=== PATIENT | female | born 1965 | race Caucasian/White ===

== ENCOUNTER 2019-01-24 08:42 | Inpatient (IN) | payer OTHER ==
--- NOTE | 2019-01-24 09:19 | PDOC ---
History of Present Illness - General Chief Complaint: Pain, Acute Stated Complaint: NECK PAIN Time Seen by Provider: 01/24/19 09:04 Past History - Past Medical History Allergies/Adverse Reactions: Allergies Allergy/AdvReac Type Severity Reaction Status Date / Time No Known Allergies Allergy Verified 11/12/15 12:25 Home Medications: Ambulatory Orders Diazepam [Valium] 5 mg PO BID #14 tablet 05/16/12 Lisinopril [Prinivil] 10 mg PO DAILY 01/24/19 COPD: No HTN: Yes - Immunization History Immunization Up to Date: No - Suicide/Smoking/Psychosocial Hx Smoking Status: No Smoking History: Never smoked Have you smoked in the past 12 months: No Number of Cigarettes Smoked Daily: 0 Information on smoking cessation initiated: No Hx Alcohol Use: No Drug/Substance Use Hx: No Substance Use Type: None *Physical Exam - Vital Signs Last Vital Signs Temp Pulse Resp BP Pulse Ox 97.7 F 79 16 130/84 99 01/24/19 08:48 01/24/19 08:48 01/24/19 08:48 01/24/19 08:48 01/24/19 08:48 *DC/Admit/Observation/Transfer - Discharge Dispostion Condition at time of disposition: Stable - Referrals Referrals: Anton Bull MD [Primary Care Provider] - - Patient Instructions - Post Discharge Activity
[2019-01-24] MEDS ORDERED: SODIUM CHLORIDE 0.9% 1000 ML INFUS.BAG IV ONE (09:23)
[2019-01-24 10:19] LABS: BASO % 0.7 % (0-2.0); EOS % 2.4 % (0-4.5); HEMATOCRIT 39.1 % (32.4-45.2); HEMOGLOBIN 13.4 GM/dL (10.7-15.3); LYMPH % 29.5 % (8-40); MCH 28.9 pg (25.7-33.7); MCHC 34.4 g/dl (32.0-36.0); MEAN CELL VOLUME 84.2 fl (80-96); MONO % 6.8 % (3.8-10.2); NEUT % 60.6 % (42.8-82.8); PLATELET COUNT 220 K/MM3 (134-434); RBC 4.64 M/mm3 (3.60-5.2); RDW 13.1 % (11.6-15.6); WHITE BLOOD COUNT 5.2 K/mm3 (4.0-10.0)
[2019-01-24 10:55] LABS: ALBUMIN 4.4 g/dl (3.4-5.0); BILIRUBIN,TOTAL 0.7 mg/dL (0.2-1); CALCIUM 9.6 mg/dL (8.5-10.1); CREATININE 0.8 mg/dL (0.55-1.3)
--- NOTE | 2019-01-24 11:37 | PDOC ---
Documentation entered by Karen Cardona SCRIBE, acting as scribe for Agustin Roe MD. Agustin Roe MD: This documentation has been prepared by the Dulce copeland Brenda, SCRIBE, under my direction and personally reviewed by me in its entirety. I confirm that the documentation accurately reflects all work, treatment, procedures, and medical decision making performed by me. History of Present Illness - General Chief Complaint: Pain, Acute Stated Complaint: NECK PAIN Time Seen by Provider: 01/24/19 09:04 History Source: Patient Exam Limitations: No Limitations - History of Present Illness Initial Comments: 01/24/19 10:11 The patient is a 53 year old female, with a significant PMH of HTN who presents to the emergency department with severe headaches, sent by PCP for admittance. As per patient, she has been suffering with severe intermittent headaches for over a year, with multiple medical evaluations ,to no avail. The patient reports she was diagnosed with a metastatic neck cancer on Monday (01/22), and was sent in by her PCP today for admittance and consult by a neurosurgeon and oncologist. The patient denies any current pain. chest pain, shortness of breath and dizziness. Denies any gastrointestinal symptoms. Denies any urinary symptoms. Allergies: NKA Past surgical history: Not reported Social history: Denies history of tobacco use, alcohol use or illicit drug. PCP: Dr. Bull Neurologist: Dr. Be Past History - Past Medical History Allergies/Adverse Reactions: Allergies Allergy/AdvReac Type Severity Reaction Status Date / Time No Known Allergies Allergy Verified 11/12/15 12:25 Home Medications: Ambulatory Orders Diazepam [Valium] 5 mg PO BID #14 tablet 05/16/12 Lisinopril [Prinivil] 10 mg PO DAILY 01/24/19 COPD: No HTN: Yes - Immunization History Immunization Up to Date: No - Suicide/Smoking/Psychosocial Hx Smoking Status: No Smoking History: Never smoked Have you smoked in the past 12 months: No Number of Cigarettes Smoked Daily: 0 Information on smoking cessation initiated: No Hx Alcohol Use: No Drug/Substance Use Hx: No Substance Use Type: None Review of Systems - Review of Systems Able to Perform ROS?: Yes Comments:: 01/24/19 10:12 A complete review of 10 out of 10 review of systems is taken and is negative apart from what is previously mentioned below and in the HPI. *Physical Exam - Vital Signs Last Vital Signs Temp Pulse Resp BP Pulse Ox 97.7 F 79 16 130/84 99 01/24/19 08:48 01/24/19 08:48 01/24/19 08:48 01/24/19 08:48 01/24/19 08:48 - Physical Exam Comments: 01/24/19 10:12 Vitals: Triage Vital signs reviewed General Appearance: no acute distress, well nourished well developed, Head: Atraumatic, normocephalic Eyes: Pupils equal reactive round, extraocular movement intact Chest Wall: Nontender Cardiac: Regular rate and rhythm, no murmurs, no rubs, no gallops, Lungs: Clear to auscultation bilateral, good air movement bilaterally, Skin: Warm and dry, no rashes or lesions, no petechiae Neuro: AOX3; Cranial Nerves 2-12 grossly intact, Strength intact to all extremities, Sensation intact to all extremities Psych: normal mood, normal affect ED Treatment Course - LABORATORY CBC & Chemistry Diagram: 01/24/19 09:49 01/24/19 09:53 - ADDITIONAL ORDERS Additional order review: Laboratory Results 01/24/19 09:53 Sodium 139 Potassium 4.0 Chloride 105 Carbon Dioxide 29 Anion Gap 5 L BUN 13.0 Creatinine 0.8 Est GFR (CKD-EPI)AfAm 98.24 Est GFR (CKD-EPI)NonAf 84.76 Random Glucose 143 H Calcium 9.6 Total Bilirubin 0.7 AST 15 ALT 18 Alkaline Phosphatase 115 Total Protein 8.0 Albumin 4.4 01/24/19 09:49 RBC 4.64 MCV 84.2 MCHC 34.4 RDW 13.1 MPV 8.0 Neutrophils % 60.6 Lymphocytes % 29.5 Monocytes % 6.8 Eosinophils % 2.4 Basophils % 0.7 - RADIOLOGY Radiology Studies Ordered: Category Date Time Status ABDOMEN & PELVIS CT WITH CONTR [CT] Stat CT Scan 01/24/19 10:[address] WITH CONTRAST [CT] Stat CT Scan 01/24/19 10:23 Taken - Medications Given in the ED: ED Medications Discontinued Medications Generic Name Dose Route Start Last Admin Trade Name Freq PRN Reason Stop Dose Admin Sodium Chloride 1,000 ml 01/24/19 09:23 01/24/19 09:53 Normal Saline - IV 01/24/19 09:24 1,000 ml ONCE ONE Administration Medical Decision Making - Medical Decision Making 01/24/19 11:37 Metastatic cervical disc disease sent to ED for further management. Radiation oncology, oncology, neurosurgery has been consult. A CT of her chest abdomen pelvis has been ordered to search for primary cancer We'll admit to medicine for further management *DC/Admit/Observation/Transfer Diagnosis at time of Disposition: Metastatic cancer to spine - Discharge Dispostion Condition at time of disposition: Stable Decision to Admit order: Yes Decision to Admit order Date/Time: Decision to Admit Order Category Date Time Status Decision to Admit to Hospital Routine Admission 01/24/19 11:15 Ordered - Referrals - Patient Instructions - Post Discharge Activity
[2019-01-24 12:15] LABS: PH,URINE 8.5 (5.0-8.0); URINE APPEARANCE TURBID; URINE BILIRUBIN NEGATIVE (NEGATIVE); URINE COLOR YELLOW; URINE GLUCOSE (UA) NEGATIVE (NEGATIVE); URINE KETONE NEGATIVE (NEGATIVE); URINE LEUK ESTERASE NEGATIVE (NEGATIVE); URINE NITRITE NEGATIVE (NEGATIVE); URINE PROTEIN NEGATIVE (NEGATIVE); URINE UROBILINOGEN 0.2 mg/dL (0.2-1.0)
[2019-01-24] MEDS: ACETAMINOPHEN 1000 MG/100 ML VIAL (NON FORMULARY) IVPB ONE (14:00)
[2019-01-24] MEDS ORDERED: ACETAMINOPHEN INJECTION 100 ML IVPB ONE (14:03)
--- NOTE | 2019-01-24 14:29 | CONSULT ---
Consultation: CONSULT REQUEST: Heme/Onc HISTORY OF PRESENT ILLNESS: Patient is a 53 yo F with a PMHx of HTN, was sent to the ED by her PCP because of an C-spine finding of metastatic disease on the base of the skull and C- spine. Patient says she has been suffering with intermittent headaches and neck pain for a few years. She had 2 Brain MRIs in 2016, and 1 brain MRI W/O contrast on 12/2017 with no suspicion of malignancies. She also complains of lower back pain, and numbness/tingling in both b/l feet. Patient denies SOB, chest pain, nausea, vomiting, blood in stool, urinary changes, weight changes, night sweats, fevers, chills, diarrhea, edema. CT Chest/AP WITH contrast in the ED revealed multiple ground glass opacities and lung nodules representing metastatic dz. Background: [facility] [place] Family hx: brother with brain/neck cancer (unknown). Social hx: denies tobacco, occasional drinking, . Occupation: house keeper, [employer] Surgical hx: tubal ligation Colonoscopy: last one in the last 5 years. normal per patient Mammogram: Last in 2017, normal per patient Pap: 1 year ago, normal per patient REVIEW OF SYSTEMS: CONSTITUTIONAL: Absent: fever, chills, diaphoresis, generalized weakness, malaise, loss of appetite, weight change HEENT: Absent: rhinorrhea, nasal congestion, throat pain, throat swelling, difficulty swallowing, mouth swelling, ear pain, eye pain, visual changes CARDIOVASCULAR: Absent: chest pain, syncope, palpitations, irregular heart rate, lightheadedness , peripheral edema RESPIRATORY: Absent: cough, shortness of breath, dyspnea with exertion, orthopnea, wheezing, stridor, hemoptysis GASTROINTESTINAL: Absent: abdominal pain, abdominal distension, nausea, vomiting, diarrhea, constipation, melena, hematochezia GENITOURINARY: Absent: dysuria, frequency, urgency, hesitancy, hematuria, flank pain, genital pain MUSCULOSKELETAL: back pain, neck pain Absent: myalgia, arthralgia, joint swelling, SKIN: Absent: rash, itching, pallor HEMATOLOGIC/IMMUNOLOGIC: Absent: easy bleeding, easy bruising, lymphadenopathy, frequent infections NEUROLOGIC: headache, numbness, tingling of feet Absent: dizziness, unsteady gait, seizure, mental status changes, bladder or bowel incontinence PHYSICAL EXAMINATION Vital Signs - 24 hr 07/25/19 08:48 Temperature 97.7 F Pulse Rate 79 Respiratory 16 Rate Blood Pressure 130/84 O2 Sat by Pulse 99 Oximetry (%) GENERAL: Awake, alert, and fully oriented, in no acute distress. HEAD: Normal with no signs of trauma. EYES: Pupils equal, round and reactive to light, extraocular movements intact, sclera anicteric EARS, NOSE, THROAT: oropharynx clear without exudates. Moist mucous membranes. NECK: supple without lymphadenopathy, JVD, or masses. LUNGS: Breath sounds equal, clear to auscultation bilaterally. No wheezes, and no crackles. HEART: Regular rate and rhythm, normal S1 and S2 without murmur, rub or gallop. ABDOMEN: Soft, nontender, not distended, normoactive bowel sounds, no guarding, no rebound, no masses. No hepatomegaly or splenomegaly. LOWER EXTREMITIES: 2+ pulses, No calf tenderness. No peripheral edema. BREAST: no palpable masses, no nipple discharge Laboratory Results - last 24 hr ASSESSMENT/PLAN: #Metastatic disease Base of Skull/Cervical spine #Lung Nodules RLL/DIONTE likely Metastatic dz -Patient will need lung biopsy -Thyroid Sonogram -Rad Onc, neuro, Neurosx on board -Pulm on board Dispo: We will continue to follow the patient. Thank you for this consultative opportunity. Visit type - Emergency Visit Emergency Visit: Yes ED Registration Date: 01/24/19 Care time: The patient presented to the Emergency Department on the above date and was hospitalized for further evaluation of their emergent condition. - New Patient This patient is new to me today: Yes Date on this admission: 01/24/19 - Critical Care Critical Care patient: No ATTENDING PHYSICIAN STATEMENT I saw and evaluated the patient. I reviewed the resident's note and discussed the case with the resident. I agree with the resident's findings and plan as documented. SUBJECTIVE: OBJECTIVE: ASSESSMENT AND PLAN:
--- NOTE | 2019-01-24 14:36 | EKG ---
Test Reason : Blood Pressure : / mmHG Vent. Rate : 081 BPM Atrial Rate : 081 BPM P-R Int : 134 ms QRS Dur : 086 ms QT Int : 352 ms P-R-T Axes : 039 032 063 degrees QTc Int : 408 ms NORMAL SINUS RHYTHM NORMAL ECG WHEN COMPARED WITH ECG OF 04-JUN-2009 14:59, NO SIGNIFICANT CHANGE WAS FOUND Confirmed by FAISAL GRAHAM MD ([id number]) on 01/24/2019 2:35:56 PM Referred By: Confirmed By:FAISAL GRAHAM MD
--- NOTE | 2019-01-24 15:21 | HP ---
Admitting History and Physical - Primary Care Physician PCP: Aleks Paul - Admission Chief Complaint: headaches & Neck pain History of Present Illness: 53 year old female with unilateral headaches for the past year who has significant PMH of HTN & depression who was sent to ER by PCP after it was discovered that she has what appears to be multi-level "metastastic" lesions in the C-spine that start at C-1 (see report). She'd c/o unilateral headaches of varying severity for about 1 year ascribed to be migrainous, but in recent months, she describes neck pains upon turning head left and right, up and down. She may have experienced numbness on the fingers of the LUE; but has no problems walking, or performing all other activities. She has been working ( doing housekeeping work) up until several days ago when she was contacted by her PCP. She does not smoke (nor does ) but she does come in contact with bleach and various cleaning solutions at work. There has been no foreign travel. Has has not had any major injuries of any kind. She denies visual changes; weakness of arm; leg, etc. History Source: Patient Limitations to Obtaining History: No Limitations - Past Medical History [employer]: Yes: Migraine, Other (depression) Cardiovascular: Yes: HTN Musculoskeletal: Yes: Other (knee pains) - Past Surgical History Past Surgical History: Yes: Tubal Ligation - Smoking History Smoking history: Never smoked Have you smoked in the past 12 months: No Aproximately how many cigarettes per day: 0 - Alcohol/Substance Use Hx Alcohol Use: No History of Substance Use: reports: None - Social History Usual Living Arrangement: Yes: With Spouse ADL: Independent Occupation: does house-keeping History of Recent Travel: No Home Medications - Allergies Allergies/Adverse Reactions: Allergies Allergy/AdvReac Type Severity Reaction Status Date / Time No Known Allergies Allergy Verified 11/12/15 12:25 - Home Medications Home Medications: Ambulatory Orders Diazepam [Valium] 5 mg PO BID #14 tablet 05/16/12 Lisinopril [Prinivil] 10 mg PO DAILY 01/24/19 Family Disease History - Family Disease History Family History: Unremarkable Review of Systems - Review of Systems Constitutional: reports: No Symptoms Eyes: reports: No Symptoms HENT: reports: No Symptoms Neck: reports: Other (some pain on ROM) Cardiovascular: reports: No Symptoms Respiratory: reports: No Symptoms Gastrointestinal: reports: No Symptoms Genitourinary: reports: No Symptoms Breasts: reports: No Symptoms Reported Musculoskeletal: reports: Joint Pain (chronic knee pains) Integumentary: reports: No Symptoms Neurological: reports: Headache (see HPI) Endocrine: reports: No Symptoms Hematology/Lymphatic: reports: No Symptoms Psychiatric: reports: Depression (stable on SSRI) Physical Examination Vital Signs: Vital Signs Temperature 97.7 F 01/24/19 08:48 Pulse Rate 79 01/24/19 08:48 Respiratory Rate 16 01/24/19 08:48 Blood Pressure 130/84 01/24/19 08:48 O2 Sat by Pulse Oximetry (%) 99 01/24/19 08:48 Findings/Remarks: skin--no appreciable lesions where exposed head--NC eyes--midline; EOMI oral--no droop neck--ROM limited; no palpable lesions appreciated lungs--grossly clear heart--RR Breasts--(done by PCP) abd--benign ext--no atrophy; no soft tissue tenderness; pedal pulses felt neuro--alert; coherent speech is fluent; cogn intact; no gross motor/sens deficits Labs: CBC, BMP 01/24/19 09:49 01/24/19 09:53 Imaging - Results Cat Scan: Report Reviewed MRI: Report Reviewed EKG: Report Reviewed Problem List - Problems (1) Neoplasm of cervical vertebra Assessment/Plan: discovered by MRI; showing lesions suggestive of metastatic disease involving multiple vertebra. Origin as of yet unknown. No evidence of FX or misalignment: PLAN: will likely need surg intervention to stabilize the C-spine and perhaps Rt ; await NS & Onc evals Code(s): D49.2 - NEOPLASM OF UNSP BEHAVIOR OF BONE, SOFT TISSUE, AND SKIN (2) Headache Assessment/Plan: longstanding; unilateral mostly which (she stated) were not quelled much by use of anti-migraine agents Code(s): R51 - HEADACHE Qualifiers: Headache type: unspecified Headache chronicity pattern: unspecified pattern Intractability: not intractable Qualified Code(s): R51 - Headache (3) Abnormal chest CT Assessment/Plan: which indicates the presence of scattered nodules mainly on the upper most parts of the lungs. Metastasis is suggested. Code(s): R93.89 - ABNORMAL FINDINGS ON DX IMAGING OF OTH BODY STRUCTURES (4) Thyroid lesion Assessment/Plan: noted incidentally on MRI; cystic. Not palpable. Code(s): E07.89 - OTHER SPECIFIED DISORDERS OF THYROID (5) Hypertension Assessment/Plan: on lisinopril Code(s): I10 - ESSENTIAL (PRIMARY) HYPERTENSION Qualifiers: Hypertension type: essential hypertension Qualified Code(s): I10 - Essential (primary) hypertension (6) Depression Assessment/Plan: longstanding; would avoid use of SSRI given the possibility of facilitating bleeding in or around involved areas of spine. Code(s): F32.9 - MAJOR DEPRESSIVE DISORDER, SINGLE EPISODE, UNSPECIFIED Qualifiers: Depression Type: unspecified Qualified Code(s): F32.9 - Major depressive disorder, single episode, unspecified Assessment/Plan 53 YO with newly discovered suspicious C-spine lesions (placing her at risk of cord compression) as well as multiple lung nodules which are also of suspicious nature ~~~~~~~~~~~~~~ Dr Paul
[2019-01-24] MEDS ORDERED: ALPRAZolam 0.25 MG TABLET PO PRN (16:11)
--- NOTE | 2019-01-24 16:25 | PN ---
Progress Note (short form) - Note Progress Note: PULMONARY CONSULTATION DICTATED 01/24/19 IMP BILATERAL PULMONARY NODULES R/O MALIGNANT IN VIEW OF C-SPINE FINDINGS ? METS VS BRONCHOAVEOLAR CA NECK PAIN HTN CYSTIC THYROID MASS HEADACHES PLAN WILL ARRANGE FOR CT GUIDED BX LUNG NODULE TO OBTAIN TISSUE DIAGNOSIS THYROID ULTRASOUND DR SMALL Problem List - Problems (1) Abnormal chest CT Code(s): R93.89 - ABNORMAL FINDINGS ON DX IMAGING OF OTH BODY STRUCTURES (2) Depression Code(s): F32.9 - MAJOR DEPRESSIVE DISORDER, SINGLE EPISODE, UNSPECIFIED Qualifiers: Depression Type: unspecified Qualified Code(s): F32.9 - Major depressive disorder, single episode, unspecified (3) Hypertension Code(s): I10 - ESSENTIAL (PRIMARY) HYPERTENSION Qualifiers: Hypertension type: essential hypertension Qualified Code(s): I10 - Essential (primary) hypertension (4) Neoplasm of cervical vertebra Code(s): D49.2 - NEOPLASM OF UNSP BEHAVIOR OF BONE, SOFT TISSUE, AND SKIN (5) Thyroid lesion Code(s): E07.89 - OTHER SPECIFIED DISORDERS OF THYROID (6) Headache Code(s): R51 - HEADACHE Qualifiers: Headache type: unspecified Headache chronicity pattern: unspecified pattern Intractability: not intractable Qualified Code(s): R51 - Headache
--- NOTE | 2019-01-24 16:56 | PN ---
Teaching Attending Note Name of Resident: Livier Sanchez ATTENDING PHYSICIAN STATEMENT I saw and evaluated the patient. I reviewed the resident's note and discussed the case with the resident. I agree with the resident's findings and plan as documented. SUBJECTIVE: Patient seen and examined 53 year old female presents with several months of neck pain and pain radiating down left neck and shoulder . MRI with metastatic disease in C spine from C1- C5 with disc bulge at C5-6. CT of chest with ground glass opacities and nodularity in multiple sites. thyroid cyst Non smoker, non drinker, No industrial exposures or intoxicants Family history --brother - neck mass-ca ? type; paternal uncle stomach ca; paternal uncle with gastric PMH- hypertension Surgical history -- tubal ligation Meds- lisinopril Allergies- none Last Vital Signs Temp Pulse Resp BP Pulse Ox 97.7 F 79 16 130/84 99 01/24/19 08:48 01/24/19 08:48 01/24/19 08:48 01/24/19 08:48 01/24/19 08:48 PE HEENT: RENNY, EOM Intact Oropharynx: No thrush, No mucositis Neck: some discomfort on lateral movement Nodes: Without adenopathy, nothyromegaly Breasts: Without masses Cor: RSR, No murmurs, No gallops Lungs: Clear to P&A Abd: Soft, Normal bowel sounds, No organomegaly Ext:No significant edema Skin: No rashes, Integument intact Current Medications Generic Name Dose Route Start Last Admin Trade Name Freq PRN Reason Stop Dose Admin Acetaminophen 650 mg 01/24/19 16:13 Tylenol Oral Solution - PO Q6H PRN HEADACHE Alprazolam 0.25 mg 01/24/19 16:11 Xanax - PO Q8H PRN ANXIETY Lisinopril 5 mg 01/25/19 10:00 Prinivil PO DAILY MARKY Impression: Metastatic disease C-spine--C1-C5 CT of chest - multiple ground glass opacities and nodularity; thyroid nodule Will need biopsy of lung ( radha alekim) Thyroid Sonogram 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
--- NOTE | 2019-01-24 17:33 | CONS ---
DATE OF CONSULTATION: 01/24/2019 This is a 53-year-old female who enters with neck pain. Recent MRI of the cervical spine revealed what is felt to be metastatic disease involving the C1 through C4 vertebrae, as well as diskogenic disease as well in the cervical spine. The patient has been complaining of neck pain radiating anteriorly with headache, some radicular component down the left side, into the left shoulder area. There was some numbness of the fingers. The patient is with 3 children. She is of [place] descent. She is a nonsmoker, nondrinker. Works in housekeeping. Has had some exposure to bleaches. There is no second-hand smoke. The patient had a family history with a brother who had perhaps a mass on the neck, which was a cancer. There is a paternal uncle with stomach cancer and a paternal uncle with pancreatic cancer. PAST MEDICAL HISTORY: The patient has a history of hypertension. She has no history of [place], hypercholesterolemia, hepatitis, stroke, gallbladder disease. There is a distant history of thyroid disease. There is no history of kidney disease. No history of gout or TB. SURGICAL HISTORY: Includes that of a tubal ligation. GENERAL HEALTH: Mammogram in 2018, nonrevealing. Colonoscopy within the past 5 years. Pap reportedly unremarkable within the past year. REVIEW OF SYSTEMS: Headache as described, radiating up from the neck. No diplopia. No epistaxis. No dysphagia. No chest pain. Pain on moving the head laterally left to right. Radiating pain down the lateral side of the neck and into the left upper shoulder area. Some numbness intermittently of the toes. No chest pain, shortness of breath, difficulty breathing. No breast masses or discharge. No palpitations. No reflux. No cough. No sputum. Some dysphagia with food getting stuck at the back of the throat. No GI symptoms of nausea, vomiting, diarrhea, or constipation. No melena. No dysuria, hematuria, pyuria. Menarche at age 14. Menopause 6-7 years ago. Normal periods. No significant back pain. Neck pain as described. MEDICATIONS: Include lisinopril, Xanax, Tylenol. ALLERGIES: No known allergies. CURRENT PHYSICAL EXAMINATION: Vital Signs: BP 130/84, pulse 79, respiratory rate 16, afebrile. HEENT: RENNY. EOM intact. Neck: No cervical, supraclavicular, or axillary nodes. Lungs: Clear to P&A without rales or rhonchi. Cardiac: RSR without murmur or gallop. Breasts: No dominant masses. Abdomen: Soft. No organomegaly or masses. Extremities: No significant edema. Motor strength intact, upper and lower extremities. Radicular pain, left neck into the left upper shoulder. LABORATORY: WBC 5.2, hematocrit 39.1, platelets 220; polys 61, lymphs 30, monocytes 7. Chemistries: Sodium 139, potassium 4, chloride 105, CO2 of 29, BUN 13, creatinine 0.8. Random glucose 143. Bilirubin 0.7. AST 15, ALT 18, alkaline phosphatase 115. Protein 8, albumin 4.4. Chest CT: Low-density left thyroid nodule measuring 1.9. Multiple ground glass opacities and lung nodules. MRI of the neck revealing metastatic disease, base of skull and cervical spine; extensive pathologic marrow replacement, occipital condyles, lateral masses, C1 odontoid process, vertebral body C2 extending into the right pedicle vertebral body C3, left pedicle, lamina of C4, vertebral body of C5. These changes were not present on an MRI of the brain in December 2017. Degenerative changes of the spine, C4-C5; disk herniation, C4-C5; disk bulge at C5-C6; cystic mass of the left lobe of the thyroid. IMPRESSION: A 53-year-old female who presents with what appears to be metastatic disease in the spine, multiple ground glass opacities and nodularity in the lung compatible with metastatic disease. 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 Thyroid nodule as well. Needle biopsy of the lung need be obtained. Sonogram of the thyroid need be obtained. YASHIRA CALDERON M.D. [id number]
--- NOTE | 2019-01-24 18:05 | CONS ---
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 Patient has been complaining of headaches for the past year. Described what is felt to be secondary to migraines. In the recent months, she started developing neck pains upon turning her head left, right, and up and down. She also has had numbness in the toes and right lower extremity as well as the fingers. She had no lower extremity weakness or upper extremity weakness. Apparently she went to a neurologist and underwent an MRI of the spine on January 21, which revealed evidence of metastatic lesions, extensive pathologic marrow replacement in the occipital condyles and lateral masses, C-spine, and base of the skull. Patient was admitted with the above. Patient, as stated before, is a nonsmoker. 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 apparently works and is exposed to fumes, employed as a business account leader. She denies any history of recent travel. There is no history of DVT or PE in the past. Denies any fevers, weight loss, or night sweats. Denies any shortness of breath. Denies any chest pains or palpitations. Denies any hemoptysis. Past medical history, again, includes hypertension, migraines, depression, knee pains, and a tubal ligation. SOCIAL HISTORY: Nonsmoker. Positive occupational exposure to cleaning solvents. REVIEW OF SYSTEMS: No orthopnea. Positive headaches, positive neck pain. Positive lower extremity tingling in the right lower foot and toes, but no weakness. No loss of gait, no loss of balance. No unsteady gait or syncopal episodes. No fevers or weight loss. Current medications include Tylenol, Prinivil, and Zantac. PHYSICAL EXAMINATION: General: The patient is a well-developed, well-nourished female, awake, alert, in no acute distress. Vital Signs: She is afebrile. Blood pressure 130/84. Respiratory rate 16. O2 saturation is 99% on room air. HEENT: Normocephalic, atraumatic. Neck: Supple. Heart: Regular, S1, S2. Chest: Clear. Abdomen: Soft. Bowel sounds are positive. Extremities: No cyanosis, edema. LABORATORY DATA: WBC is 5.2, hemoglobin 13.4, hematocrit 39.1, platelet count 221,000. BUN 13, creatinine 0.8. UA is negative. Chest CT reveals multiple bilateral pulmonary nodules and multiple bilateral ground-glass nodules and also a cystic mass in the thyroid. C-spine MRI as noted earlier. IMPRESSION: 1. Multiple bilateral pulmonary nodules. Rule out malignant in view of abnormal C-spine findings. 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 Neck pain. 3. Hypertension. 4. Cystic thyroid mass. PLAN: Will arrange for CT-guided biopsy, left upper lobe lung nodule, to obtain tissue diagnosis, but will have to wait at least 4 days in view of the patient recently taking Aleve. Will obtain thyroid ultrasound. Continue metastatic workup. GERMAN SMALL M.D. [id number] MTDD
[2019-01-24] MEDS: ACETAMINOPHEN 650 MG/20.3 ML ORAL SOLUTION (CUPS) PO PRN (20:38)
--- NOTE | 2019-01-24 20:40 | CONSULT ---
Consult - text type - Consultation Consultation Note: NEUROLOGY CONSULTATION is greatly appreciated: Events reviewed and discussed with Dr. Madie Bull. Pt examined. This 53 yo RH woman with h/o HTN and depression on lisinopril and amlodipine and venlafaxine (75 mg) is well-known to me after many years of treatment of migraine headaches with Topiramate 100 mg BID and Nortriptylin 50 mg q hs. Seen by me for routine office f/u 01/14/19 with c/o neck pain and "pulling" over the left ear and "itching and tingling" over the occipital region (L>R). MRI of Cervical spine showed metastatic disease in the clivus, occipital bone, odontoid and scattered in the C3-5 vertebrae as well as a cystic thyroid mass. Now admitted for oncological eval and Rx. Dr. Brizuela's consultation and CT of chest read and appreciated. Multiple ling nodules. EXAM: Pt found sleeping. Awakens to name. Denies the need for pain meds Full neck ROM without pain or palpable spasm NEURO: MS/speech: Normal. Withdrawn, depressed. CN: II-XII: normal Motor: No drift. Normal strength and reflexes. Toes downgoing Coord: No FTN dystaxia Sensory: Normal Gait: Normal IMP: Normal neurological exam- No sign of myelopathy or radiculopathy (although sensory symptoms over the ear and occiput could be radicular) Migraine headaches. Depression SUGGEST: Continue topiramate 100 mg BID Continue Nortriptyline 50 mg QHS Continue Venlafaxine and consider increasing the dose to 150 mg Continue oncology eval and radiation therapy eval. Thank you very much, Hardeep Be MD
[2019-01-24] MEDS ORDERED: PT OWN MED DRAWER 7, Y5N ONE (22:00)
[2019-01-24] MEDS ORDERED: NORTRIPTYLINE HCL 50 MG CAPSULE PO SCH (22:00)
[2019-01-24] MEDS: NORTRIPTYLINE HCL 25 MG CAPSULE PO SCH (23:18)
[2019-01-24] MEDS: TOPIRAMATE 100 MG TABLET PO SCH (23:18)
--- NOTE | 2019-01-25 09:34 | PN ---
Progress Note (short form) - Note Progress Note: Radiation Oncology (full consult to follow) Pt seen, chart reviewed, discussed with Dr. Bull 53yo non smoker female a/w 6mo hx of neck pain, MRI showed disease in C-spine and skull base, admitted for further workup. CT CAP demonstrates multiple bilateral GGO lung masses. Clinically c/w lung and bone mets secondary to bronchoaveolar lung ca vs other primary. Rec: Neck pain management. Stabilization eval by neurosurgery. Tissue diagnosis to confirm malignancy. Biopsy is planned for Monday due to recent NSAID use. Will follow path.
[2019-01-25] MEDS ORDERED: amLODIPine BESYLATE 5 MG TABLET (FP) PO SCH (10:00)
[2019-01-25] MEDS ORDERED: LISINOPRIL 5 MG TABLET (FP) PO SCH (10:00)
[2019-01-25] MEDS ORDERED: VENLAFAXINE HCL 150 MG E.R. CAPSULE PO SCH (10:00)
--- NOTE | 2019-01-25 10:33 | CONSULT ---
Consult - text type - Consultation Consultation Note: NEUROSURGERY CONSULTATION Chelsey Fraser is a 53 year old [place] female who has a history of migraine headaches and describes some progression over the past year. She was recently found to have Left neck and upper extremity radicular pain as well as numbness in her Left arm. MRI reveals a disc herniation at C45. There is a lesser degree of spondylosis at C56 with Left greater than Right foraminal encroachment from uncinate spurs. The MRI also revealed focal areas of marrow replacement in the upper Cervical spine as well as the clivus and skull base consistent with metastatic disease as well as a Thyroid cyst. The patient has no known primary and these lesions were not appreciated on an MRI of the Brain from one year ago. The patient had pain associated with neck movements and held her head still while supported by a pillow when encountered yesterday although her range of motion has improved overnight. She is otherwise Neurologically nonfocal. Case discussed with Drs. Brizuela and Henny and CT Chest reviewed where multiple lesions were identified which may be consistent with a Bronchoalveolar origin. Biopsy of one of the superficial lesions is planned for Monday due to her recent NSAID usage. Although the Cervical degenerative pathology can be easily addressed if her symptoms persist or progress, I am in agreement that her Oncological staging and initiation of treatment would appear to warrant a higher priority at this time. At this point, she does not appear to be at an unusually high risk of developing a pathological fracture. I offered her a Cervical soft collar for comfort and will await the formal reading of the Cervical CT.
[2019-01-25] MEDS: ACETAMINOPHEN 650 MG/20.3 ML ORAL SOLUTION (CUPS) PO PRN ×2 (10:49→22:55)
[2019-01-25] MEDS: TOPIRAMATE 100 MG TABLET PO SCH ×2 (10:50→22:36)
[2019-01-25] MEDS: VENLAFAXINE HCL 75 MG E.R. CAPSULES (FP) PO SCH (10:50)
--- NOTE | 2019-01-25 11:29 | CONS ---
DATE OF CONSULTATION: 01/25/2019 REFERRING PHYSICIAN: Anton Bull MD REASON FOR CONSULTATION: Neck pain and metastases. HISTORY OF PRESENT ILLNESS: The patient is a 53-year-old nonsmoker with history of migraine headaches who had 6 months of neck pain radiating to the left shoulder and sometimes involving the hand and fingers. An MRI of the cervical spine demonstrated extensive pathologic marrow replacement involving he clivus, occipital condyles, C1 through C4 vertebrae, consistent with metastatic disease without pathologic fracture or epidural mass and a cystic mass in the left thyroid. She was admitted for further workup. Chest x-ray showed lung masses and a CT of the chest, abdomen, and pelvis demonstrates numerous bilateral ground- glass opacities representing primary or metastatic disease and a stable subcentimeter liver lesion. She had a colonoscopy 7 years ago and annual Pap smears have been normal. Her mammogram showed the left fibroadenoma, but otherwise, negative. Her uncle had stomach cancer, another uncle had pancreatic cancer, and a brother had a neck mass. She has exposures to cleaning chemical agents. She is otherwise healthy with hypertension and migraine headaches. PAST MEDICAL HISTORY: As noted above. PAST SURGICAL HISTORY: Tubal ligation. ALLERGIES: No known drug allergies. CURRENT MEDICATIONS: Lisinopril, Topamax, Pamelor, Effexor, Norvasc. SOCIAL HISTORY: She is [place]. She lives with her and has 3 children. She does not smoke or use alcohol. 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 REVIEW OF SYSTEMS: No recent change in weight, appetite, bowel or bladder habits. There is numbness in the fingers and toes, but no incontinence. No history of radiation therapy or connective tissue disorders. PHYSICAL EXAMINATION General: Well-appearing, well-nourished, well-developed female appearing her stated age in no acute distress. at bedside. Vital Signs: Temperature 99.0, blood pressure 133/84, pulse 92, respiratory rate 18, SaO2 at 100% on room air. HEENT: Normocephalic, atraumatic. Moist mucous membranes. Anicteric sclerae. Clear oral cavity without thrush, mucositis, or lesions. Neck: No cervical or supraclavicular adenopathy. Mild tenderness at the upper cervical spine. No paraspinal mass. Range of motion is limited due to pain. Chest: Clear bilaterally. No axillary adenopathy. Abdomen: Soft, nontender, without distension or organomegaly. Extremities: Normal range of motion without peripheral edema. Musculoskeletal: As mentioned in the cervical spine, and no thoracic or lumber mass or tenderness. Neurologic: Alert and oriented x3. No cranial neuropathy. Sensation to light touch is intact. No pronator drift. Motor 5 out of 5 x4. Coordination Normal. Gait normal. LABORATORY DATA: WBC 5.2, hemoglobin 13.4, platelets 220,000. Electrolytes within normal limits, BUN 13, creatinine 0.8. LFTs normal. Calcium 9.6. CT chest, abdomen, and pelvis and MRI cervical spine as noted in HPI. 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 In addition there is a thyroid nodule and a small liver lesion. I recommend pain management and cervical stabilization evaluation by Neurosurgery. A tissue diagnosis is awaited to confirm the suspicion of malignancy. The biopsy is planned for Monday due to recent NSAID use. I will follow the pathology report with further recommendations to follow (possible palliative RT to C-spine /WOODY). Thank you for asking me to see this patient. MICHAEL BRADEN M.D. [id number] MTDD
--- NOTE | 2019-01-25 12:02 | PN ---
Progress Note (short form) - Note Progress Note: NEUROLOGY PROGRESS: Events reviewed and discussed. Neurosurgery consult read. Pt returned from Chest ray- noted with multiple lung nodules. Still with occipital headaches "aching" with associated "lightheadedness." Not relieved with Tylenol or Advil. Occasional radiating "pain" from neck into L shoulder. Now wearing soft cervical collar, and reports some relief of neck pain. Lung biopsy on hold secondary to recent NSAID use for headache. NEURO: BP 90/60 supine, this AM. Orthostatics: 119/65 laying -> 100/72 sitting. Mentation/Speech: Somewhat withdrawn. CNII-CNXII: Normal. Motor: No drift. Strength normal. Reflexes Normal. Coordination: No FTN dystaxia. Sensation: Normal to vibration. Impression: Normal Neurological Exam- No sign of Myelopathy Migraine Headaches Possible new orthostatic hypotension Depression Suggest: Orthostatic BP's Continue topiramate 100 mg BID, nortriptyline 50 mg HS for migraines (may need to be lowered if patient remains orthostatic) Use Sumatriptan 50-100 mg po prn as needed for migraine Continue Effexor 150 mg XL po daily Thank you very much, Hardeep Be MD
--- NOTE | 2019-01-25 13:48 | ECHO ---
Name: CARLA SPENCE Exam:Adult Echocardiogram Study Date: 01/25/2019 12:39 PM Age: 53 yrs Reason For Study: effusion Height: 67 in Weight: 157 lb BSA: 1.8 m2 MMode/2D Measurements & Calculations IVSd: 0.64 cm Ao root diam: 3.0 cm LVIDd: 3.9 cm LA dimension: 2.6 cm LVIDs: 2.5 cm LVPWd: 1.1 cm LVPWs: 1.7 cm EDV(Teich): 67.4 ml ESV(Teich): 22.5 ml LVOT diam: 2.0 cm Doppler Measurements & Calculations MV E max augustine: 43.4 cm/sec Ao V2 max: 127.1 cm/sec MV A max augustine: 63.2 cm/sec Ao max P.5 mmHg MV E/A: 0.69 Ao V2 mean: 89.7 cm/sec MV dec time: 0.16 sec Ao mean P.7 mmHg Ao V2 VTI: 20.8 cm MASON(I,D): 2.0 cm2 MASON(V,D): 2.2 cm2 LV V1 max P.6 mmHg SV(LVOT): 41.8 ml LV V1 mean P.5 mmHg LV V1 max: 94.8 cm/sec LV V1 mean: 53.7 cm/sec LV V1 VTI: 14.0 cm TR max augustine: 237.5 cm/sec PA V2 max: 107.9 cm/sec TR max P.6 mmHg PA max P.7 mmHg Med Peak E' Augustine: 8.1 cm/sec Med E/e': 5.4 Lat Peak E' Augustine: 9.0 cm/sec Lat E/e': 4.8 Left Ventricle The left ventricular size, thickness and function are normal. Ejection Fraction = 55-60%. The transmi tral spectral Doppler flow pattern is suggestive of impaired LV relaxation. Right Ventricle The right ventricle is normal in size and function. Mitral Valve There is mild mitral valve thickening. There is no mitral valve stenosis. There is trace mitral regur gitation. Tricuspid Valve The tricuspid valve is normal in structure and function. There is Trace to mild tricuspid regurgitati on. Right ventricular systolic pressure is normal. Aortic Valve The aortic valve is trileaflet. No hemodynamically significant valvular aortic stenosis. Pericardium/Pleura There is no pericardial effusion. Interpretation Summary The left ventricular size, thickness and function are normal Ejection Fraction = 55-60%. No hemodynamically significant valvular aortic stenosis. There is Trace to mild tricuspid regurgitation. There is mild mitral valve thickening. There is trace mitral regurgitation. The transmitral spectral Doppler flow pattern is suggestive of impaired LV relaxation. There is no pericardial effusion. MD Thorpe *[place] 01/25/2019 01:48 PM
--- NOTE | 2019-01-25 14:19 | EKG ---
Test Reason : Blood Pressure : / mmHG Vent. Rate : 079 BPM Atrial Rate : 079 BPM P-R Int : 144 ms QRS Dur : 090 ms QT Int : 370 ms P-R-T Axes : 044 029 051 degrees QTc Int : 424 ms SINUS RHYTHM WITH PREMATURE SUPRAVENTRICULAR COMPLEXES OTHERWISE NORMAL ECG WHEN COMPARED WITH ECG OF 24-JAN-2019 09:44, PREMATURE SUPRAVENTRICULAR COMPLEXES ARE NOW PRESENT Confirmed by BRISSA RILEY MD ([id number]) on 01/25/2019 2:19:03 PM Referred By: Confirmed By:BRISSA RILEY MD
--- NOTE | 2019-01-25 14:48 | PN ---
Progress Note, Physician History of Present Illness: pulmonary alert,no distress,using neck brace more comfortable - Current Medication List Current Medications: Active Medications Acetaminophen (Tylenol Oral Solution -) 650 mg PO Q6H PRN PRN Reason: HEADACHE Last Admin: 01/25/19 10:49 Dose: 650 mg Alprazolam (Xanax -) 0.25 mg PO Q8H PRN PRN Reason: ANXIETY Last Admin: 01/25/19 01:00 Dose: 0.25 mg Nortriptyline HCl (Pamelor -) 50 mg PO HS [facility] Last Admin: 01/24/19 23:18 Dose: 50 mg Sumatriptan Succinate (Imitrex -) 50 mg PO PRN PRN PRN Reason: HEADACHE Topiramate (Topamax -) 100 mg PO BID [facility] Last Admin: 01/25/19 10:50 Dose: 100 mg Venlafaxine HCl (Effexor Xr -) 150 mg PO DAILY [facility] Last Admin: 01/25/19 10:50 Dose: 150 mg - Objective Vital Signs: Vital Signs Temperature 97.4 F L 01/25/19 07:30 Pulse Rate 78 01/25/19 13:33 Respiratory Rate 18 01/25/19 07:30 Blood Pressure 119/65 01/25/19 13:33 O2 Sat by Pulse Oximetry (%) 100 01/25/19 09:00 Constitutional: Yes: Well Nourished, Calm Eyes: Yes: WNL HENT: Yes: WNL Neck: Yes: Supple (neck brace), Other Cardiovascular: Yes: Regular Rate and Rhythm, S1, S2 Respiratory: Yes: CTA Bilaterally Gastrointestinal: Yes: Normal Bowel Sounds, Soft Extremities: Yes: WNL Edema: No Labs: CBC, BMP - ....Imaging Chest X-ray: Report Reviewed, Image Reviewed (placido pulmonary nodules) Problem List - Problems (1) Abnormal chest CT Code(s): R93.89 - ABNORMAL FINDINGS ON DX IMAGING OF OTH BODY STRUCTURES (2) Depression Code(s): F32.9 - MAJOR DEPRESSIVE DISORDER, SINGLE EPISODE, UNSPECIFIED Qualifiers: Depression Type: unspecified Qualified Code(s): F32.9 - Major depressive disorder, single episode, unspecified (3) Hypertension Code(s): I10 - ESSENTIAL (PRIMARY) HYPERTENSION Qualifiers: Hypertension type: essential hypertension Qualified Code(s): I10 - Essential (primary) hypertension (4) Neoplasm of cervical vertebra Code(s): D49.2 - NEOPLASM OF UNSP BEHAVIOR OF BONE, SOFT TISSUE, AND SKIN (5) Thyroid lesion Code(s): E07.89 - OTHER SPECIFIED DISORDERS OF THYROID (6) Headache Code(s): R51 - HEADACHE Qualifiers: Headache type: unspecified Headache chronicity pattern: unspecified pattern Intractability: not intractable Qualified Code(s): R51 - Headache Assessment/Plan IMP BILATERAL PULMONARY NODULES R/O MALIGNANT IN VIEW OF C-SPINE FINDINGS ? METS VS BRONCHOAVEOLAR CA NECK PAIN HTN CYSTIC THYROID MASS HEADACHES PLAN CT GUIDED BX LUNG NODULE TO OBTAIN TISSUE DIAGNOSIS ANALGESICS DR SMALL Problem List - Problems (1) Abnormal chest CT Code(s): R93.89 - ABNORMAL FINDINGS ON DX IMAGING OF OTH BODY STRUCTURES (2) Depression Code(s): F32.9 - MAJOR DEPRESSIVE DISORDER, SINGLE EPISODE, UNSPECIFIED Qualifiers: Depression Type: unspecified Qualified Code(s): F32.9 - Major depressive disorder, single episode, unspecified (3) Hypertension Code(s): I10 - ESSENTIAL (PRIMARY) HYPERTENSION Qualifiers: Hypertension type: essential hypertension Qualified Code(s): I10 - Essential (primary) hypertension (4) Neoplasm of cervical vertebra Code(s): D49.2 - NEOPLASM OF UNSP BEHAVIOR OF BONE, SOFT TISSUE, AND SKIN (5) Thyroid lesion Code(s): E07.89 - OTHER SPECIFIED DISORDERS OF THYROID (6) Headache Code(s): R51 - HEADACHE Qualifiers: Headache type: unspecified Headache chronicity pattern: unspecified pattern Intractability: not intractable Qualified Code(s): R51 - Headache
--- NOTE | 2019-01-25 14:54 | RAPID ---
Physical Examination Vital Signs: Vital Signs Temperature 97.4 F L 01/25/19 07:30 Pulse Rate 78 01/25/19 13:33 Respiratory Rate 18 01/25/19 07:30 Blood Pressure 119/65 01/25/19 13:33 O2 Sat by Pulse Oximetry (%) 100 01/25/19 09:00 Constitutional: Yes: Diaphoresis, Pallor HENT: Yes: WNL Cardiovascular: Yes: Bradycardia Respiratory: Yes: WNL Extremities: Yes: Cool Labs: CBC, BMP 01/24/19 09:49 01/24/19 09:53 Rapid Response - Rapid Response Assessment: SUBJECTIVE: Rapid response paged overhead at 9:30AM. inbound call center representative team responded immediately. Patient came down to radiology for imaging. Reported by nursing staff to feel lightheaded & dizzy. Upon arrival patient was speaking in complete sentences, sitting on a wheelchair. Additionally c/o headache, feeling cold and blurry vision. Denies chest pain, SOB, LOC, nausea, vomiting. Symptoms improved when lying on the stretcher. OBJECTIVE: BP1: 98/64 HR 56 RR 14 SaO2 98% BP2: 107/64 HR 98 RR 14 SaO2 100% General: AOx3. Mild distress. Pallor. Cool to touch. Visible diaphoresis. Heart: RRR. S1S2. Lungs: CTABL. Neuro: CN 2-12 intact. Moving all extremities, good ROM. Abdomen: Soft NTND. Extremities: No edema. LABS: Fingerstick glucose 183 A/P: #Presyncopal episode -likely d/t orthostatics; less likely acute neurological event -Stat EKG reveals NSR, VR 75, QTc 406 -Bedside echo did not reveal septal bowing, concern for possible pericardial effusion -Given 1L NS bolus stat -Stat head CT ordered--no acute changes -Call placed to PCP service x 2.
--- NOTE | 2019-01-25 15:46 | PN ---
Progress Note (short form) - Note Progress Note: Patient seen and examined While in radiology , hypotensive, dizzy, blurry eyes -Rapid response Now somewhat improved Last Vital Signs Temp Pulse Resp BP Pulse Ox 97.8 F 77 20 127/82 100 01/25/19 14:54 01/25/19 14:54 01/25/19 14:54 01/25/19 14:54 01/25/19 09:00 HEENT: RENNY, EOM Intact Neck: collar Cor: RSR, No murmurs, No gallops Lungs: Clear to P&A Ext:No significant edema CBC, BMP 01/24/19 09:49 01/24/19 09:53 Current Medications Generic Name Dose Route Start Last Admin Trade Name Freq PRN Reason Stop Dose Admin Acetaminophen 650 mg 01/24/19 16:13 01/25/19 10:49 Tylenol Oral Solution - PO 650 mg Q6H PRN Administration HEADACHE Alprazolam 0.25 mg 01/24/19 16:11 01/25/19 01:00 Xanax - PO 0.25 mg Q8H PRN Administration ANXIETY Nortriptyline HCl 50 mg 01/24/19 22:00 01/24/19 23:18 Pamelor - PO 50 mg HS MARKY Administration Sumatriptan Succinate 50 mg 01/25/19 11:55 Imitrex - PO PRN PRN HEADACHE Topiramate 100 mg 01/24/19 22:00 01/25/19 10:50 Topamax - PO 100 mg BID MARKY Administration Venlafaxine HCl 150 mg 01/25/19 10:00 01/25/19 10:50 Effexor Xr - PO 150 mg DAILY MARKY Administration Impression Cervical spine mets Ground glass lung appearance and nodularity Rapid response Migraines For biopsy of lung Thyroid sono Xanax, effexor, nortriptyline - rapid response, hypotensive -- adjust dosing
--- NOTE | 2019-01-25 16:26 | PN ---
Progress Note (short form) - Note Progress Note: Current Medications Acetaminophen (Tylenol Oral Solution -) 650 mg PO Q6H PRN PRN Reason: HEADACHE Last Admin: 01/25/19 10:49 Dose: 650 mg Alprazolam (Xanax -) 0.25 mg PO Q8H PRN PRN Reason: ANXIETY Last Admin: 01/25/19 01:00 Dose: 0.25 mg Nortriptyline HCl (Pamelor -) 50 mg PO HS MARKY Last Admin: 01/24/19 23:18 Dose: 50 mg Sumatriptan Succinate (Imitrex -) 50 mg PO PRN PRN PRN Reason: HEADACHE Topiramate (Topamax -) 100 mg PO BID [facility] Last Admin: 01/25/19 10:50 Dose: 100 mg Venlafaxine HCl (Effexor Xr -) 150 mg PO DAILY [facility] Last Admin: 01/25/19 10:50 Dose: 150 mg Laboratory Results - last 24 hr 01/25/19 01/25/19 09:38 10:44 POC Glucometer 183 Troponin I < 0.02 Vital Signs Temperature 97.8 F 01/25/19 14:54 Pulse Rate 77 01/25/19 14:54 Respiratory Rate 20 01/25/19 14:54 Blood Pressure 127/82 01/25/19 14:54 O2 Sat by Pulse Oximetry (%) 100 01/25/19 09:00 CC; felt sudden weakness while in Xray this AM ```````````````````````````````````````` skin--NL color eyes--midline; EOMI heart--RR neuro--awake; a bit despondent but coherent; no gross deficits ````````````````````````````` Summ > 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 > near syncope--while lying in Xray dep; in all likelyhood a vaso-vagal episode , while her BP was already marginally low. She did not take her AM BP meds. head CT negative; Troponin negative; Echo unremarkable: recived IV hydration. PLAN: Stop BP meds > headaches--deemed to be migrainous; has been Rx'd anti-migraine meds by her Neurologist > AbnL lung imaging--on contrast chest CT that reveals multiple "ground glass" lesions 1cm ? or less; malignancy suspected. Pt has not displayed any resp sx to suggest acute illness and does not appear acutely ill. PLAN: for needle Bx; check Quantiferon > Htn--Bp have either been NL or low; given hypotensive episode will stop BP meds for now. > Multi/nod thyroid--as per recent US; ? less likely to represent neoplastic dz ; will check TFTs > hx of depression--on SSRI, as per neuro ~~~~~~~~~~~~~~~~~~~~~~~~~~~~ Dr Paul Problem List - Problems (1) Neoplasm of cervical vertebra Code(s): D49.2 - NEOPLASM OF UNSP BEHAVIOR OF BONE, SOFT TISSUE, AND SKIN (2) Headache Code(s): R51 - HEADACHE Qualifiers: Headache type: unspecified Headache chronicity pattern: unspecified pattern Intractability: not intractable Qualified Code(s): R51 - Headache (3) Abnormal chest CT Code(s): R93.89 - ABNORMAL FINDINGS ON DX IMAGING OF OTH BODY STRUCTURES (4) Thyroid lesion Code(s): E07.89 - OTHER SPECIFIED DISORDERS OF THYROID (5) Hypertension Code(s): I10 - ESSENTIAL (PRIMARY) HYPERTENSION Qualifiers: Hypertension type: essential hypertension Qualified Code(s): I10 - Essential (primary) hypertension (6) Depression Code(s): F32.9 - MAJOR DEPRESSIVE DISORDER, SINGLE EPISODE, UNSPECIFIED Qualifiers: Depression Type: unspecified Qualified Code(s): F32.9 - Major depressive disorder, single episode, unspecified
[2019-01-25] MEDS ORDERED: DOCUSATE SODIUM 100 MG CAPSULE (FP) PO PRN (16:30)
[2019-01-25] MEDS: POLYETHYLENE GLYCOL 3350 119 GM BTL PO SCH (16:36)
[2019-01-25] MEDS ORDERED: PT OWN MED DRAWER 7, Y5N ONE ×2 (20:25→22:41)
[2019-01-25] MEDS: SUMAtriptan SUCCINATE 50 MG TABLET PO PRN (22:41)
[2019-01-25] MEDS: NORTRIPTYLINE HCL 25 MG CAPSULE PO SCH (22:59)
[2019-01-26] MEDS: ACETAMINOPHEN 650 MG/20.3 ML ORAL SOLUTION (CUPS) PO PRN (06:51)
[2019-01-26 07:24] LABS: INR 1.03 (0.83-1.09); PROTHROMBIN TIME (PATIENT) 12.2 SEC (9.7-13.0)
[2019-01-26 07:26] LABS: ACTIVATED PTT 32.7 SECONDS (25.2-36.5)
[2019-01-26] MEDS ORDERED: PT OWN MED DRAWER 7, Y5N ONE ×2 (10:03→21:37)
[2019-01-26] MEDS: VENLAFAXINE HCL 75 MG E.R. CAPSULES (FP) PO SCH ×3 (10:14→21:45)
[2019-01-26] MEDS: POLYETHYLENE GLYCOL 3350 119 GM BTL PO SCH (10:14)
[2019-01-26] MEDS: TOPIRAMATE 100 MG TABLET PO SCH ×2 (10:15→21:46)
[2019-01-26] MEDS ORDERED: ACETAMINOPHEN 500 MG TABLET (FP) PO PRN (11:56)
--- NOTE | 2019-01-26 12:08 | PN ---
Progress Note (short form) - Note Progress Note: Current Medications Acetaminophen (Tylenol -) 1,000 mg PO Q8H PRN PRN Reason: PAIN Alprazolam (Xanax -) 0.25 mg PO Q8H PRN PRN Reason: ANXIETY Last Admin: 01/25/19 01:00 Dose: 0.25 mg Docusate Sodium (Colace -) 100 mg PO TID [facility] Nortriptyline HCl (Pamelor -) 50 mg PO HS [facility] Last Admin: 01/25/19 22:59 Dose: 50 mg Polyethylene Glycol (Miralax (For Daily Use) -) 17 gm PO DAILY [facility] Last Admin: 01/26/19 10:14 Dose: 17 grams Senna (Senna -) 1 tab PO HS [facility] Sumatriptan Succinate (Imitrex -) 50 mg PO PRN PRN PRN Reason: HEADACHE Last Admin: 01/25/19 22:41 Dose: 50 mg Topiramate (Topamax -) 100 mg PO BID [facility] Last Admin: 01/26/19 10:15 Dose: 100 mg Venlafaxine HCl (Effexor Xr -) 150 mg PO HS [facility] Laboratory Results - last 24 hr 01/26/19 01/26/19 05:30 05:30 PT with INR 12.20 INR 1.03 PTT (Actin FS) 32.7 TSH 1.51 Vital Signs Temperature 98.2 F 01/26/19 06:00 Pulse Rate 75 01/26/19 06:00 Respiratory Rate 20 01/26/19 06:00 Blood Pressure 121/73 01/26/19 06:00 O2 Sat by Pulse Oximetry (%) 100 01/25/19 21:00 CC; c/o "usual" neck pains this AM; denies numbness or loss of strenght/pain to either arm or legs. As of this AM she is still has not had a BM. ```````````````````````````````````````` skin--NL color eyes--midline; EOMI heart--RR lungs--grossly clear, unlabored abd--soft, BS+, NT neuro--awake; a bit despondent but coherent; no gross deficits ````````````````````````````` Summ > Bone neoplasm--multi-levels at C-spine as shown by Imaging, likely metastatic disease but origin still in question; surprisingly no such lesions seen on Contrast CT of neck! Out-Pt SPEP relayed by PCP as "negative" for M spike: PLAN : supportive measures; eventual Bx of lung lesions purported to be the source of presumed C-spine metastasis. PRN APAP IV (more effective than PO) > near syncope--likelyhood a vaso-vagal episode in Xray dept yesterday, while her BP was already marginally low. no further episodes. PLAN: Stop BP meds, as BP readings do not warrant any Tx (so far). > headaches--longstanding, deemed to be migrainous; has been Rx'd anti-migraine meds by her Neurologist > AbnL lung imaging--on contrast chest CT that reveals multiple "ground glass" lesions of varying sizes; malignancy suspected. Pt has not displayed any resp sx to suggest acute illness and does not appear acutely ill. PLAN: for needle Bx ; check Quantiferon; though TB would be far less likely. > Htn--Bp have either been NL or low; given hypotensive episode will suspend BP meds for now. > Multi/nod thyroid--as per recent [place]; ? less likely to represent neoplastic dz ; TSH okay! > hx of depression--on SSRI & TCA as per neuro ~~~~~~~~~~~~~~~~~~~~~~~~~~~~ Dr Paul Problem List - Problems (1) Neoplasm of cervical vertebra Code(s): D49.2 - NEOPLASM OF UNSP BEHAVIOR OF BONE, SOFT TISSUE, AND SKIN (2) Headache Code(s): R51 - HEADACHE Qualifiers: Headache type: unspecified Headache chronicity pattern: unspecified pattern Intractability: not intractable Qualified Code(s): R51 - Headache (3) Abnormal chest CT Code(s): R93.89 - ABNORMAL FINDINGS ON DX IMAGING OF OTH BODY STRUCTURES (4) Thyroid lesion Code(s): E07.89 - OTHER SPECIFIED DISORDERS OF THYROID (5) Hypertension Code(s): I10 - ESSENTIAL (PRIMARY) HYPERTENSION Qualifiers: Hypertension type: essential hypertension Qualified Code(s): I10 - Essential (primary) hypertension (6) Depression Code(s): F32.9 - MAJOR DEPRESSIVE DISORDER, SINGLE EPISODE, UNSPECIFIED Qualifiers: Depression Type: unspecified Qualified Code(s): F32.9 - Major depressive disorder, single episode, unspecified
[2019-01-26] MEDS: ACETAMINOPHEN 1000 MG/100 ML VIAL (NON FORMULARY) IVPB ONE (13:22)
--- NOTE | 2019-01-26 13:57 | PN ---
Progress Note, Physician History of Present Illness: pulmonary alert,c/o neck pain - Current Medication List Current Medications: Active Medications Acetaminophen (Tylenol -) 1,000 mg PO Q8H PRN PRN Reason: PAIN Alprazolam (Xanax -) 0.25 mg PO Q8H PRN PRN Reason: ANXIETY Last Admin: 01/25/19 01:00 Dose: 0.25 mg Docusate Sodium (Colace -) 100 mg PO TID [facility] Nortriptyline HCl (Pamelor -) 50 mg PO HS [facility] Last Admin: 01/25/19 22:59 Dose: 50 mg Polyethylene Glycol (Miralax (For Daily Use) -) 17 gm PO DAILY [facility] Last Admin: 01/26/19 10:14 Dose: 17 grams Senna (Senna -) 1 tab PO HS [facility] Sumatriptan Succinate (Imitrex -) 50 mg PO PRN PRN PRN Reason: HEADACHE Last Admin: 01/25/19 22:41 Dose: 50 mg Topiramate (Topamax -) 100 mg PO BID [facility] Last Admin: 01/26/19 10:15 Dose: 100 mg Venlafaxine HCl (Effexor Xr -) 150 mg PO [facility] - Objective Vital Signs: Vital Signs Temperature 98.2 F 01/26/19 06:00 Pulse Rate 75 01/26/19 06:00 Respiratory Rate 20 01/26/19 06:00 Blood Pressure 121/73 01/26/19 06:00 O2 Sat by Pulse Oximetry (%) 100 01/25/19 21:00 Constitutional: Yes: Well Nourished, Calm Eyes: Yes: WNL HENT: Yes: WNL Neck: Yes: Other (neck brace) Cardiovascular: Yes: Regular Rate and Rhythm, S1, S2 Respiratory: Yes: CTA Bilaterally Extremities: Yes: WNL Edema: No Labs: CBC, BMP Problem List - Problems (1) Abnormal chest CT Code(s): R93.89 - ABNORMAL FINDINGS ON DX IMAGING OF OTH BODY STRUCTURES (2) Depression Code(s): F32.9 - MAJOR DEPRESSIVE DISORDER, SINGLE EPISODE, UNSPECIFIED Qualifiers: Depression Type: unspecified Qualified Code(s): F32.9 - Major depressive disorder, single episode, unspecified (3) Hypertension Code(s): I10 - ESSENTIAL (PRIMARY) HYPERTENSION Qualifiers: Hypertension type: essential hypertension Qualified Code(s): I10 - Essential (primary) hypertension (4) Neoplasm of cervical vertebra Code(s): D49.2 - NEOPLASM OF UNSP BEHAVIOR OF BONE, SOFT TISSUE, AND SKIN (5) Thyroid lesion Code(s): E07.89 - OTHER SPECIFIED DISORDERS OF THYROID (6) Headache Code(s): R51 - HEADACHE Qualifiers: Headache type: unspecified Headache chronicity pattern: unspecified pattern Intractability: not intractable Qualified Code(s): R51 - Headache Assessment/Plan IMP BILATERAL PULMONARY NODULES R/O MALIGNANT IN VIEW OF C-SPINE FINDINGS ? METS VS BRONCHOAVEOLAR CA NECK PAIN HTN CYSTIC THYROID MASS HEADACHES PLAN CT GUIDED BX LUNG NODULE TO OBTAIN TISSUE DIAGNOSIS ON MONDAY ANALGESICS DR SMALL Problem List - Problems (1) Abnormal chest CT Code(s): R93.89 - ABNORMAL FINDINGS ON DX IMAGING OF OTH BODY STRUCTURES (2) Depression Code(s): F32.9 - MAJOR DEPRESSIVE DISORDER, SINGLE EPISODE, UNSPECIFIED Qualifiers: Depression Type: unspecified Qualified Code(s): F32.9 - Major depressive disorder, single episode, unspecified (3) Hypertension Code(s): I10 - ESSENTIAL (PRIMARY) HYPERTENSION Qualifiers: Hypertension type: essential hypertension Qualified Code(s): I10 - Essential (primary) hypertension (4) Neoplasm of cervical vertebra Code(s): D49.2 - NEOPLASM OF UNSP BEHAVIOR OF BONE, SOFT TISSUE, AND SKIN (5) Thyroid lesion Code(s): E07.89 - OTHER SPECIFIED DISORDERS OF THYROID (6) Headache Code(s): R51 - HEADACHE Qualifiers: Headache type: unspecified Headache chronicity pattern: unspecified pattern Intractability: not intractable Qualified Code(s): R51 - Headache
[2019-01-26] MEDS: oxyCODONE HCL 5 MG TABLET PO PRN (15:06)
[2019-01-26] MEDS: DOCUSATE SODIUM 100 MG CAPSULE (FP) PO SCH ×2 (15:11→21:43)
[2019-01-26] MEDS: SUMAtriptan SUCCINATE 50 MG TABLET PO PRN (21:43)
[2019-01-26] MEDS: SENNOSIDES 8.6MG TABLET (FP) PO SCH (21:43)
[2019-01-26] MEDS: NORTRIPTYLINE HCL 25 MG CAPSULE PO SCH (21:45)
--- NOTE | 2019-01-26 22:19 | PN ---
Progress Note (short form) - Note Progress Note: Patient seen in follow up. No new complaints. No significant events overnight. Inpatient Meds reviewed. Current Medications Generic Name Dose Route Start Last Admin Trade Name Freq PRN Reason Stop Dose Admin Acetaminophen 1,000 mg 01/26/19 11:56 Tylenol - PO Q8H PRN PAIN Alprazolam 0.25 mg 01/24/19 16:11 01/25/19 01:00 Xanax - PO 0.25 mg Q8H PRN Administration ANXIETY Docusate Sodium 100 mg 01/26/19 14:00 01/26/19 21:43 Colace - PO 100 mg TID MARKY Administration Nortriptyline HCl 50 mg 01/24/19 22:00 01/26/19 21:45 Pamelor - PO 50 mg HS MARKY Administration Oxycodone HCl 5 mg 01/26/19 14:26 01/26/19 15:06 Roxicodone - PO 5 mg Q6H PRN Administration PAIN LEVEL 6-10 Polyethylene Glycol 17 gm 01/25/19 16:30 01/26/19 10:14 Miralax (For Daily Use) - PO 17 grams DAILY [facility]Y Administration Senna 1 tab 01/26/19 22:00 01/26/19 21:43 Senna - PO 1 tab HS MARKY Administration Sumatriptan Succinate 50 mg 01/25/19 11:55 01/26/19 21:43 Imitrex - PO 50 mg PRN PRN Administration HEADACHE Topiramate 100 mg 01/24/19 22:00 01/26/19 21:46 Topamax - PO 100 mg BID MARKY Administration Venlafaxine HCl 150 mg 01/26/19 22:00 01/26/19 21:45 Effexor Xr - PO 150 mg HS MARYK Administration On Examination: Last Vital Signs Temp Pulse Resp BP Pulse Ox 98.2 F 83 20 137/86 100 01/26/19 18:14 01/26/19 18:14 01/26/19 18:14 01/26/19 18:14 01/25/19 21:00 General: In no acute distress, lying comfortably in bed. Extremities: No pallor or icterus. No pedal edema. No palpable lymphadenopathy. CVS: S1, S2, regular, no gallop or murmur. Chest: good air entry bilaterally, clear Abdomen: Non-distended, non-tender, no palpable organomegaly. Neuro: Alert, oriented, non-focal. Labs: CBC, BMP 01/24/19 09:49 01/24/19 09:53 Assessment. Newly discovered metastatic disease C-spine--C1-C5 - suspected lung primary, based on appearance on CT chest of multiple ground glass opacities and nodularity; thyroid nodule Biopsy of lung pending. 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
[2019-01-27] MEDS: DOCUSATE SODIUM 100 MG CAPSULE (FP) PO SCH ×3 (05:55→22:21)
[2019-01-27] MEDS ORDERED: MAGNESIUM CITRATE 300 ML BOTTLE PO PRN (10:46)
--- NOTE | 2019-01-27 10:49 | PN ---
Progress Note (short form) - Note Progress Note: Covering for Dr Paul chart reviewed at bedside hx obtained from patient Patient sitting in chair soft neck collar in place Vital Signs Period Temp Pulse Resp BP Sys/Cho Pulse Ox Last 24 Hr 98.1 F-98.5 F 76-85 20-20 132-144/86-[address] heart S1/s2 reg lung clear bilat abd soft no distension ext no edema CBC, BMP 01/24/19 09:49 01/24/19 09:53 Active Medications Acetaminophen (Tylenol -) 1,000 mg PO Q8H PRN PRN Reason: PAIN Acetaminophen (Tylenol Oral Solution -) 650 mg PO Q4H PRN PRN Reason: PAIN LEVEL 1-5 Alprazolam (Xanax -) 0.25 mg PO Q8H PRN PRN Reason: ANXIETY Last Admin: 01/25/19 01:00 Dose: 0.25 mg Amlodipine Besylate (Norvasc -) 5 mg PO DAILY [facility] Docusate Sodium (Colace -) 100 mg PO TID [facility] Last Admin: 01/27/19 05:55 Dose: 100 mg Lisinopril (Prinivil) 5 mg PO DAILY [facility] Magnesium Citrate (Citroma -) 300 ml PO PRN PRN PRN Reason: CONSTIPATION Nortriptyline HCl (Pamelor -) 50 mg PO HS [facility] Last Admin: 01/26/19 21:45 Dose: 50 mg Oxycodone HCl (Roxicodone -) 5 mg PO Q6H PRN PRN Reason: PAIN LEVEL 6-10 Last Admin: 01/26/19 15:06 Dose: 5 mg Polyethylene Glycol (Miralax (For Daily Use) -) 17 gm PO BID [facility] Senna (Senna -) 1 tab PO HS [facility] Last Admin: 01/26/19 21:43 Dose: 1 tab Sumatriptan Succinate (Imitrex -) 50 mg PO PRN PRN PRN Reason: HEADACHE Last Admin: 01/26/19 21:43 Dose: 50 mg Topiramate (Topamax -) 100 mg PO BID [facility] Last Admin: 01/26/19 21:46 Dose: 100 mg Venlafaxine HCl (Effexor Xr -) 150 mg PO [facility] Last Admin: 01/26/19 21:45 Dose: 150 mg assmt / plan # multi level bone lesion on C spine likely metastatic --origin?? scheduled for Bx of lung lesion in am # COnstipation 2/2 to narcotics increased miralax to BID / on colace / senakot order for citroma if needed patient prefers pain management with tylenol -states it "good enough " # HTN chart report episode of hypotension / possible vaso-vagal 01/25 resulting in d/c of HTN meds Bp normalized and now increased - will resume Bp meds at lower doses continue to monitor Bp - adjust meds as needed # Abn contrast lung scan suspect origin of malignanacy -- bx scheduled for am # depression on SSRI and TCA continue management # Thyroid nodule TFT nl discussed with patient discussed possibility of bx in future
--- NOTE | 2019-01-27 11:22 | PN ---
Progress Note, Physician History of Present Illness: PULMONARY ALERT,NO CHANGE,+ NECK PAIN - Current Medication List Current Medications: Active Medications Acetaminophen (Tylenol -) 1,000 mg PO Q8H PRN PRN Reason: PAIN Acetaminophen (Tylenol Oral Solution -) 650 mg PO Q4H PRN PRN Reason: PAIN LEVEL 1-5 Alprazolam (Xanax -) 0.25 mg PO Q8H PRN PRN Reason: ANXIETY Last Admin: 01/25/19 01:00 Dose: 0.25 mg Amlodipine Besylate (Norvasc -) 5 mg PO DAILY [facility] Docusate Sodium (Colace -) 100 mg PO TID [facility] Last Admin: 01/27/19 05:55 Dose: 100 mg Lisinopril (Prinivil) 5 mg PO DAILY [facility] Magnesium Citrate (Citroma -) 300 ml PO PRN PRN PRN Reason: CONSTIPATION Nortriptyline HCl (Pamelor -) 50 mg PO [facility] Last Admin: 01/26/19 21:45 Dose: 50 mg Oxycodone HCl (Roxicodone -) 5 mg PO Q6H PRN PRN Reason: PAIN LEVEL 6-10 Last Admin: 01/26/19 15:06 Dose: 5 mg Polyethylene Glycol (Miralax (For Daily Use) -) 17 gm PO BID [facility] Senna (Senna -) 1 tab PO [facility] Last Admin: 01/26/19 21:43 Dose: 1 tab Sumatriptan Succinate (Imitrex -) 50 mg PO PRN PRN PRN Reason: HEADACHE Last Admin: 01/26/19 21:43 Dose: 50 mg Topiramate (Topamax -) 100 mg PO BID [facility] Last Admin: 01/26/19 21:46 Dose: 100 mg Venlafaxine HCl (Effexor Xr -) 150 mg PO [facility] Last Admin: 01/26/19 21:45 Dose: 150 mg - Objective Vital Signs: Vital Signs Temperature 98.1 F 01/27/19 05:28 Pulse Rate 76 01/27/19 05:28 Respiratory Rate 20 01/27/19 05:28 Blood Pressure 144/97 01/27/19 05:28 O2 Sat by Pulse Oximetry (%) 95 01/26/19 21:00 Constitutional: Yes: Well Nourished, Calm Eyes: Yes: WNL HENT: Yes: WNL Neck: Yes: Supple (IN NECK BRACE) Cardiovascular: Yes: Regular Rate and Rhythm, S1, S2 Respiratory: Yes: CTA Bilaterally Gastrointestinal: Yes: Normal Bowel Sounds, Soft Extremities: Yes: WNL Edema: No Labs: CBC, BMP Problem List - Problems (1) Abnormal chest CT Code(s): R93.89 - ABNORMAL FINDINGS ON DX IMAGING OF OTH BODY STRUCTURES (2) Depression Code(s): F32.9 - MAJOR DEPRESSIVE DISORDER, SINGLE EPISODE, UNSPECIFIED Qualifiers: Depression Type: unspecified Qualified Code(s): F32.9 - Major depressive disorder, single episode, unspecified (3) Hypertension Code(s): I10 - ESSENTIAL (PRIMARY) HYPERTENSION Qualifiers: Hypertension type: essential hypertension Qualified Code(s): I10 - Essential (primary) hypertension (4) Neoplasm of cervical vertebra Code(s): D49.2 - NEOPLASM OF UNSP BEHAVIOR OF BONE, SOFT TISSUE, AND SKIN (5) Thyroid lesion Code(s): E07.89 - OTHER SPECIFIED DISORDERS OF THYROID (6) Headache Code(s): R51 - HEADACHE Qualifiers: Headache type: unspecified Headache chronicity pattern: unspecified pattern Intractability: not intractable Qualified Code(s): R51 - Headache Assessment/Plan IMP BILATERAL PULMONARY NODULES R/O MALIGNANT IN VIEW OF C-SPINE FINDINGS ? METS VS BRONCHOAVEOLAR CA NECK PAIN HTN CYSTIC THYROID MASS HEADACHES PLAN CT GUIDED BX LUNG NODULE TO OBTAIN TISSUE DIAGNOSIS IN AM ANALGESICS DR SMALL Problem List - Problems (1) Abnormal chest CT Code(s): R93.89 - ABNORMAL FINDINGS ON DX IMAGING OF OTH BODY STRUCTURES (2) Depression Code(s): F32.9 - MAJOR DEPRESSIVE DISORDER, SINGLE EPISODE, UNSPECIFIED Qualifiers: Depression Type: unspecified Qualified Code(s): F32.9 - Major depressive disorder, single episode, unspecified (3) Hypertension Code(s): I10 - ESSENTIAL (PRIMARY) HYPERTENSION Qualifiers: Hypertension type: essential hypertension Qualified Code(s): I10 - Essential (primary) hypertension (4) Neoplasm of cervical vertebra Code(s): D49.2 - NEOPLASM OF UNSP BEHAVIOR OF BONE, SOFT TISSUE, AND SKIN (5) Thyroid lesion Code(s): E07.89 - OTHER SPECIFIED DISORDERS OF THYROID (6) Headache Code(s): R51 - HEADACHE Qualifiers: Headache type: unspecified Headache chronicity pattern: unspecified pattern Intractability: not intractable Qualified Code(s): R51 - Headache
[2019-01-27] MEDS: LISINOPRIL 5 MG TABLET (FP) PO SCH (11:34)
[2019-01-27] MEDS: amLODIPine BESYLATE 5 MG TABLET (FP) PO SCH (11:34)
[2019-01-27] MEDS: oxyCODONE HCL 5 MG TABLET PO PRN (11:35)
[2019-01-27] MEDS: TOPIRAMATE 100 MG TABLET PO SCH ×2 (11:35→22:19)
[2019-01-27] MEDS ORDERED: PT OWN MED DRAWER 7, Y5N ONE (22:04)
[2019-01-27] MEDS: VENLAFAXINE HCL 75 MG E.R. CAPSULES (FP) PO SCH (22:18)
[2019-01-27] MEDS: SENNOSIDES 8.6MG TABLET (FP) PO SCH (22:18)
[2019-01-27] MEDS: NORTRIPTYLINE HCL 25 MG CAPSULE PO SCH (22:19)
[2019-01-27] MEDS: SUMAtriptan SUCCINATE 50 MG TABLET PO PRN (22:20)
[2019-01-27] MEDS: POLYETHYLENE GLYCOL 3350 119 GM BTL PO SCH (22:21)
[2019-01-28] MEDS: ACETAMINOPHEN 650 MG/20.3 ML ORAL SOLUTION (CUPS) PO PRN ×2 (04:16→21:19)
[2019-01-28] MEDS: DOCUSATE SODIUM 100 MG CAPSULE (FP) PO SCH ×3 (06:42→21:13)
[2019-01-28 07:44] LABS: BASO % 0.7 % (0-2.0); EOS % 2.1 % (0-4.5); HEMATOCRIT 35.7 % (32.4-45.2); HEMOGLOBIN 12.7 GM/dL (10.7-15.3); MCH 29.3 pg (25.7-33.7); MCHC 35.6 g/dl (32.0-36.0); MEAN CELL VOLUME 82.2 fl (80-96); MEAN PLT VOLUME 7.8 fl (7.5-11.1); MONO % 9.5 % (3.8-10.2); NEUT % 58.7 % (42.8-82.8); PLATELET COUNT 194 K/MM3 (134-434); RBC 4.35 M/mm3 (3.60-5.2); RDW 13.1 % (11.6-15.6); WHITE BLOOD COUNT 5.7 K/mm3 (4.0-10.0)
[2019-01-28 08:01] LABS: INR 1.02 (0.83-1.09)
[2019-01-28 08:05] LABS: ALBUMIN 3.6 g/dl (3.4-5.0); BILIRUBIN,TOTAL 0.5 mg/dL (0.2-1); BLOOD UREA NITROGEN 14.9 mg/dL (7-18); CALCIUM 9.3 mg/dL (8.5-10.1); CREATININE 0.9 mg/dL (0.55-1.3); POTASSIUM 3.7 mmol/L (3.5-5.1); TOT PROT 7.1 g/dl (6.4-8.2)
[2019-01-28] MEDS ORDERED: PT OWN MED DRAWER 7, Y5N ONE ×3 (08:08→20:07)
[2019-01-28] MEDS: amLODIPine BESYLATE 5 MG TABLET (FP) PO SCH (10:25)
[2019-01-28] MEDS: LISINOPRIL 5 MG TABLET (FP) PO SCH (10:25)
[2019-01-28] MEDS: POLYETHYLENE GLYCOL 3350 119 GM BTL PO SCH ×2 (10:26→21:12)
[2019-01-28] MEDS: TOPIRAMATE 100 MG TABLET PO SCH ×2 (10:29→21:14)
--- NOTE | 2019-01-28 10:34 | PN ---
Progress Note (short form) - Note Progress Note: PULMONARY States neck pain controlled with current regimen. Lung biopsy this PM. Vital Signs Period Temp Pulse Resp BP Sys/Cho Pulse Ox Last 24 Hr 98.0 F-98.6 F 72-87 20-20 116-139/70-87 97 Gen: NAD at rest Heart: RRR Lung: decreased breath sounds at the bases Abd: soft, nontender Ext: no edema CBC, BMP 01/28/19 06:45 01/28/19 06:45 Active Medications Acetaminophen (Tylenol Oral Solution -) 650 mg PO Q4H PRN PRN Reason: PAIN LEVEL 1-5 Last Admin: 01/28/19 04:16 Dose: 650 mg Alprazolam (Xanax -) 0.25 mg PO Q8H PRN PRN Reason: ANXIETY Last Admin: 01/25/19 01:00 Dose: 0.25 mg Amlodipine Besylate (Norvasc -) 5 mg PO DAILY [facility] Last Admin: 01/28/19 10:25 Dose: 5 mg Docusate Sodium (Colace -) 100 mg PO TID [facility] Last Admin: 01/28/19 06:42 Dose: 100 mg Lisinopril (Prinivil) 5 mg PO DAILY [facility] Last Admin: 01/28/19 10:25 Dose: 5 mg Magnesium Citrate (Citroma -) 300 ml PO PRN PRN PRN Reason: CONSTIPATION Nortriptyline HCl (Pamelor -) 50 mg PO HS [facility] Last Admin: 01/27/19 22:19 Dose: 50 mg Oxycodone HCl (Roxicodone -) 5 mg PO Q6H PRN PRN Reason: PAIN LEVEL 6-10 Last Admin: 01/27/19 11:35 Dose: 5 mg Polyethylene Glycol (Miralax (For Daily Use) -) 17 gm PO BID [facility] Last Admin: 01/28/19 10:26 Dose: Not Given Senna (Senna -) 1 tab PO [facility] Last Admin: 01/27/19 22:18 Dose: Not Given Sumatriptan Succinate (Imitrex -) 50 mg PO PRN PRN PRN Reason: HEADACHE Last Admin: 01/27/19 22:20 Dose: 50 mg Topiramate (Topamax -) 100 mg PO BID [facility] Last Admin: 01/28/19 10:29 Dose: 100 mg Venlafaxine HCl (Effexor Xr -) 150 mg PO HS [facility] Last Admin: 01/27/19 22:18 Dose: 150 mg A/P Metastatic Disease r/o Lung Ca HTN - for CT guided needle biopsy of lung - pain control - DVT prophylaxis
--- NOTE | 2019-01-28 12:39 | PN ---
Progress Note (short form) - Note Progress Note: Active Medications Acetaminophen (Tylenol Oral Solution -) 650 mg PO Q4H PRN PRN Reason: PAIN LEVEL 1-5 Last Admin: 01/28/19 04:16 Dose: 650 mg Alprazolam (Xanax -) 0.25 mg PO Q8H PRN PRN Reason: ANXIETY Last Admin: 01/25/19 01:00 Dose: 0.25 mg Amlodipine Besylate (Norvasc -) 5 mg PO DAILY [facility] Last Admin: 01/28/19 10:25 Dose: 5 mg Docusate Sodium (Colace -) 100 mg PO TID [facility] Last Admin: 01/28/19 06:42 Dose: 100 mg Lisinopril (Prinivil) 5 mg PO DAILY [facility] Last Admin: 01/28/19 10:25 Dose: 5 mg Magnesium Citrate (Citroma -) 300 ml PO PRN PRN PRN Reason: CONSTIPATION Nortriptyline HCl (Pamelor -) 50 mg PO [facility] Last Admin: 01/27/19 22:19 Dose: 50 mg Oxycodone HCl (Roxicodone -) 5 mg PO Q6H PRN PRN Reason: PAIN LEVEL 6-10 Last Admin: 01/27/19 11:35 Dose: 5 mg Polyethylene Glycol (Miralax (For Daily Use) -) 17 gm PO BID [facility] Last Admin: 01/28/19 10:26 Dose: Not Given Senna (Senna -) 1 tab PO [facility] Last Admin: 01/27/19 22:18 Dose: Not Given Sumatriptan Succinate (Imitrex -) 50 mg PO PRN PRN PRN Reason: HEADACHE Last Admin: 01/27/19 22:20 Dose: 50 mg Topiramate (Topamax -) 100 mg PO BID [facility] Last Admin: 01/28/19 10:29 Dose: 100 mg Venlafaxine HCl (Effexor Xr -) 150 mg PO [facility] Last Admin: 01/27/19 22:18 Dose: 150 mg Laboratory Results - last 24 hr 01/28/19 01/28/19 01/28/19 06:45 06:45 06:45 WBC 5.7 RBC 4.35 Hgb 12.7 Hct 35.7 MCV 82.2 MCH 29.3 MCHC 35.6 RDW 13.1 Plt Count 194 MPV 7.8 Absolute Neuts (auto) 3.3 Neutrophils % 58.7 Lymphocytes % 29.0 Monocytes % 9.5 Eosinophils % 2.1 Basophils % 0.7 Nucleated RBC % 0 PT with INR 12.00 INR 1.02 Sodium 139 Potassium 3.7 Chloride 103 Carbon Dioxide 29 Anion Gap 6 L BUN 14.9 Creatinine 0.9 Est GFR (CKD-EPI)AfAm 85.20 Est GFR (CKD-EPI)NonAf 73.51 Random Glucose 104 Calcium 9.3 Total Bilirubin 0.5 AST 14 L ALT 18 Alkaline Phosphatase 105 Total Protein 7.1 Albumin 3.6 Vital Signs Temperature 98.0 F 01/28/19 06:00 Pulse Rate 74 01/28/19 06:00 Respiratory Rate 20 01/28/19 06:00 Blood Pressure 139/87 01/28/19 06:00 O2 Sat by Pulse Oximetry (%) 97 01/27/19 21:00 CC; neck pains continue; denies numbness or loss of strenght/pain to either arm or legs. 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 Out-Pt SPEP relayed by PCP as "negative" for M spike: PLAN: supportive measures; Bx of lung lesions as the likeliest source of presumed C-spine metastasis. PRN APAP IV (more effective than PO); PRN Oxycodone ; TCA for pain; ? need for spine stabilizing procedure > near syncope--likelyhood a vaso-vagal episode in Xray dept yesterday, while her BP was already marginally low. no further episodes. PLAN: Stop BP meds, as BP readings do not warrant any Tx (so far). > headaches--longstanding, deemed to be migrainous; has been Rx'd anti-migraine meds by her Neurologist > AbnL lung imaging--on contrast chest CT that reveals multiple "ground glass" lesions of varying sizes; malignancy suspected. Pt has not displayed any resp sx to suggest acute illness and does not appear acutely ill. PLAN: for needle Bx ; check Quantiferon; though TB would be far less likely. > Htn--now back on BP meds. > Multi/nod thyroid--as per recent US; TSH okay! > Constipation--helped by laxatives > hx of depression--on SSRI & TCA as per neuro ~~~~~~~~~~~~~~~~~~~~~~~~~~~~ Dr Beverly Problem List - Problems (1) Neoplasm of cervical vertebra Code(s): D49.2 - NEOPLASM OF UNSP BEHAVIOR OF BONE, SOFT TISSUE, AND SKIN (2) Headache Code(s): R51 - HEADACHE Qualifiers: Headache type: unspecified Headache chronicity pattern: unspecified pattern Intractability: not intractable Qualified Code(s): R51 - Headache (3) Abnormal chest CT Code(s): R93.89 - ABNORMAL FINDINGS ON DX IMAGING OF OTH BODY STRUCTURES (4) Thyroid lesion Code(s): E07.89 - OTHER SPECIFIED DISORDERS OF THYROID (5) Hypertension Code(s): I10 - ESSENTIAL (PRIMARY) HYPERTENSION Qualifiers: Hypertension type: essential hypertension Qualified Code(s): I10 - Essential (primary) hypertension (6) Depression Code(s): F32.9 - MAJOR DEPRESSIVE DISORDER, SINGLE EPISODE, UNSPECIFIED Qualifiers: Depression Type: unspecified Qualified Code(s): F32.9 - Major depressive disorder, single episode, unspecified
--- NOTE | 2019-01-28 19:30 | PN ---
Progress Note (short form) - Note Progress Note: Patient seen and examined Complains of neck pains S/P lung biopsy Thyroid sono with bilateral nodules largest - right - 1.2 cm and largest left - 2.0 cystic nodule and second 1.2 cm Last Vital Signs Temp Pulse Resp BP Pulse Ox 98.3 F 79 20 104/66 100 01/28/19 15:27 01/28/19 15:27 01/28/19 15:27 01/28/19 15:27 01/28/19 13:28 Lungs - clear Cor _RSR Abd- soft CBC, BMP 01/28/19 06:45 01/28/19 06:45 Impression: C1-5 cervical meta Lung - nodularity and ground glass appearance S/P lung biopsy Thyroid with bilateral nodules Await biopsy
[2019-01-28] MEDS: SUMAtriptan SUCCINATE 50 MG TABLET PO PRN (20:11)
[2019-01-28] MEDS: SENNOSIDES 8.6MG TABLET (FP) PO SCH (21:13)
[2019-01-28] MEDS: VENLAFAXINE HCL 75 MG E.R. CAPSULES (FP) PO SCH (21:13)
[2019-01-28] MEDS: NORTRIPTYLINE HCL 25 MG CAPSULE PO SCH (21:14)
[2019-01-29] MEDS: oxyCODONE HCL 5 MG TABLET PO PRN ×2 (01:50→09:11)
[2019-01-29] MEDS: DOCUSATE SODIUM 100 MG CAPSULE (FP) PO SCH ×3 (06:56→21:12)
[2019-01-29] MEDS: LISINOPRIL 5 MG TABLET (FP) PO SCH (09:13)
[2019-01-29] MEDS: amLODIPine BESYLATE 5 MG TABLET (FP) PO SCH (09:13)
[2019-01-29] MEDS: POLYETHYLENE GLYCOL 3350 119 GM BTL PO SCH ×2 (09:16→21:13)
[2019-01-29] MEDS ORDERED: PT OWN MED DRAWER 7, Y5N ONE ×3 (09:17→21:39)
[2019-01-29] MEDS: TOPIRAMATE 100 MG TABLET PO SCH ×2 (09:19→21:15)
--- NOTE | 2019-01-29 10:17 | PN ---
Progress Note (short form) - Note Progress Note: PULMONARY s/p CT guided needle biopsy. Episode of hemoptysis afterwards but none since. Denies shortness of breath or chest/back painn. States neck pain controlled with current regimen. Vital Signs Period Temp Pulse Resp BP Sys/Cho Pulse Ox Last 24 Hr 97.7 F-98.3 F 76-108 12-20 104-137/66-96 95-100 Gen: NAD at rest Heart: RRR Lung: decreased breath sounds at the bases Abd: soft, nontender Ext: no edema CBC, BMP 01/28/19 06:45 01/28/19 06:45 Active Medications Acetaminophen (Tylenol Oral Solution -) 650 mg PO Q4H PRN PRN Reason: PAIN LEVEL 1-5 Last Admin: 01/28/19 21:19 Dose: 650 mg Alprazolam (Xanax -) 0.25 mg PO Q8H PRN PRN Reason: ANXIETY Last Admin: 01/25/19 01:00 Dose: 0.25 mg Amlodipine Besylate (Norvasc -) 5 mg PO DAILY [facility] Last Admin: 01/29/19 09:13 Dose: Not Given Docusate Sodium (Colace -) 100 mg PO TID [facility] Last Admin: 01/29/19 06:56 Dose: 100 mg Lisinopril (Prinivil) 5 mg PO DAILY [facility] Last Admin: 01/29/19 09:13 Dose: Not Given Magnesium Citrate (Citroma -) 300 ml PO PRN PRN PRN Reason: CONSTIPATION Nortriptyline HCl (Pamelor -) 50 mg PO [facility] Last Admin: 01/28/19 21:14 Dose: 50 mg Oxycodone HCl (Roxicodone -) 5 mg PO Q6H PRN PRN Reason: PAIN LEVEL 6-10 Last Admin: 01/29/19 09:11 Dose: 5 mg Polyethylene Glycol (Miralax (For Daily Use) -) 17 gm PO BID [facility] Last Admin: 01/29/19 09:16 Dose: 17 grams Senna (Senna -) 1 tab PO [facility] Last Admin: 01/28/19 21:13 Dose: 1 tab Sumatriptan Succinate (Imitrex -) 50 mg PO PRN PRN PRN Reason: HEADACHE Last Admin: 01/28/19 20:11 Dose: 50 mg Topiramate (Topamax -) 100 mg PO BID [facility] Last Admin: 01/29/19 09:19 Dose: 100 mg Venlafaxine HCl (Effexor Xr -) 150 mg PO [facility] Last Admin: 01/28/19 21:13 Dose: 150 mg A/P Metastatic Disease r/o Lung Ca HTN - f/u pathology - pain control - DVT prophylaxis - no objections to outpt f/u for results
--- NOTE | 2019-01-29 15:55 | PATH ---
Surgical Pathology Report Patient Name: CARLA SPENCE Med. Rec. #: [id number] /Age/Gender: 1965 (Age: 53) / F Account: [id number] Location: [facility] MED/SURG Taken: 01/28/2019 Received: 01/28/2019 Reported: 01/29/2019 Physicians: Manjula Lopez M.D. Norman Rosen, M.D. Specimen(s) Received CT GUIDED DIONTE LUNG BIOPSY Clinical History Neck pain Postoperative diagnosis: Multiple ground glass opacities Final Diagnosis LUNG, LEFT, DIONTE, CT GUIDED CORE BIOPSY: LUNG PARENCHYMA WITH MILD CHRONIC INFLAMMATION AND FIBROSIS IN A BACKGROUND OF ABUNDANT NECROSIS AND FOCAL HEMORRHAGE. DEEPER LEVELS HAVE BEEN EXAMINED. Comment: Suggest clinical/radiological correlation. Findings discussed with Drs. Brizuela and Beverly. Electronically Signed Becky Stroud M.D. Addendum Reported: 01/30/2019 Addendum Diagnosis Special stains for acid fast bacilli (AFB) and Fungus(PAS) are negative. Becky Stroud M.D. Gross Description Received in formalin labeled "left lung biopsy," are 5 sanchez, cylindrical portions of soft tissue ranging from 0.5-1.1 cm in length and averaging 0.1 cm in diameter. The specimens are submitted in toto in one cassette. /01/28/2019 saudi/01/28/2019
--- NOTE | 2019-01-29 16:29 | PN ---
Progress Note (short form) - Note Progress Note: Patient seen and discussed with Dr. Paul and pathology Biopsy of lung - negative for malignancy Consider cervical spine biopsy by Neurosurgery to review thyroid sono
--- NOTE | 2019-01-29 16:32 | PN ---
Progress Note (short form) - Note Progress Note: Current Medications Acetaminophen (Tylenol Oral Solution -) 650 mg PO Q4H PRN PRN Reason: PAIN LEVEL 1-5 Last Admin: 01/28/19 21:19 Dose: 650 mg Alprazolam (Xanax -) 0.25 mg PO Q8H PRN PRN Reason: ANXIETY Last Admin: 01/25/19 01:00 Dose: 0.25 mg Amlodipine Besylate (Norvasc -) 5 mg PO DAILY [facility] Last Admin: 01/29/19 09:13 Dose: Not Given Docusate Sodium (Colace -) 100 mg PO TID [facility] Last Admin: 01/29/19 15:27 Dose: 100 mg Lisinopril (Prinivil) 5 mg PO DAILY [facility] Last Admin: 01/29/19 09:13 Dose: Not Given Magnesium Citrate (Citroma -) 300 ml PO PRN PRN PRN Reason: CONSTIPATION Nortriptyline HCl (Pamelor -) 50 mg PO [facility] Last Admin: 01/28/19 21:14 Dose: 50 mg Oxycodone HCl (Roxicodone -) 5 mg PO Q6H PRN PRN Reason: PAIN LEVEL 6-10 Last Admin: 01/29/19 09:11 Dose: 5 mg Polyethylene Glycol (Miralax (For Daily Use) -) 17 gm PO BID [facility] Last Admin: 01/29/19 09:16 Dose: 17 grams Senna (Senna -) 1 tab PO [facility] Last Admin: 01/28/19 21:13 Dose: 1 tab Sumatriptan Succinate (Imitrex -) 50 mg PO PRN PRN PRN Reason: HEADACHE Last Admin: 01/28/19 20:11 Dose: 50 mg Topiramate (Topamax -) 100 mg PO BID [facility] Last Admin: 01/29/19 09:19 Dose: 100 mg Venlafaxine HCl (Effexor Xr -) 150 mg PO [facility] Last Admin: 01/28/19 21:13 Dose: 150 mg Vital Signs Temperature 99.4 F 01/29/19 15:10 Pulse Rate 86 01/29/19 15:10 Respiratory Rate 20 01/29/19 08:27 Blood Pressure 119/79 01/29/19 15:10 O2 Sat by Pulse Oximetry (%) 100 01/29/19 08:27 CC; s/p needle lung Bx. ```````````````````````````````````````` skin--NL color eyes--midline; EOMI heart--RR lungs--grossly clear, unlabored abd--soft, BS+, NT neuro--awake; a bit despondent but coherent; no gross deficits ````````````````````````````` Summ > Bone neoplasm--multi-levels at C-spine as shown by MRI (but not on contrast CT ); suspicious for metastatic disease but origin still in question (no such lesions were found on head/neck MRI a year ago). Out-Pt SPEP relayed by PCP as "negative" for M spike; finalized path interpretation of the lung biopsy specimen was inconclusive (showed mainly necrotic tissue) and no evidence of granuloma formation: PLAN: supportive measures and will now need to proceed with C-spine surgery in order to obtain a specimen. No need to spine stabilizing procedure as per NS. cont pain control measures for now > AbnL lung imaging--raised suspicion for neoplastic disease (and possible primary source of presumed metastasis to C-spine); however; tissue submitted did not reveal any presence of neoplastic cells; but only necrotic tissue; thus cannot fully r/o malignancy. Issue of past exposure to TB has been considered ( sister was ill as a child) but never had active disease though she was Tx with INH for a period of time as a youth. PLAN: have asked for AFB-PAS staining of biopsy specimen > Htn--BP okay. > Multi/nod thyroid--as per recent US; TSH okay! > Constipation--helped by laxatives > Hx of migraines--on anti-migr meds > hx of depression--on SSRI & TCA as per neuro ~~~~~~~~~~~~~~~~~~~~~~~~~~~~ Dr Paul Problem List - Problems (1) Neoplasm of cervical vertebra Code(s): D49.2 - NEOPLASM OF UNSP BEHAVIOR OF BONE, SOFT TISSUE, AND SKIN (2) Headache Code(s): R51 - HEADACHE Qualifiers: Headache type: unspecified Headache chronicity pattern: unspecified pattern Intractability: not intractable Qualified Code(s): R51 - Headache (3) Abnormal chest CT Code(s): R93.89 - ABNORMAL FINDINGS ON DX IMAGING OF OTH BODY STRUCTURES (4) Thyroid lesion Code(s): E07.89 - OTHER SPECIFIED DISORDERS OF THYROID (5) Hypertension Code(s): I10 - ESSENTIAL (PRIMARY) HYPERTENSION Qualifiers: Hypertension type: essential hypertension Qualified Code(s): I10 - Essential (primary) hypertension (6) Depression Code(s): F32.9 - MAJOR DEPRESSIVE DISORDER, SINGLE EPISODE, UNSPECIFIED Qualifiers: Depression Type: unspecified Qualified Code(s): F32.9 - Major depressive disorder, single episode, unspecified
[2019-01-29] MEDS: SENNOSIDES 8.6MG TABLET (FP) PO SCH (21:12)
[2019-01-29] MEDS: VENLAFAXINE HCL 75 MG E.R. CAPSULES (FP) PO SCH (21:13)
[2019-01-29] MEDS: NORTRIPTYLINE HCL 25 MG CAPSULE PO SCH (21:14)
[2019-01-29] MEDS: ACETAMINOPHEN 650 MG/20.3 ML ORAL SOLUTION (CUPS) PO PRN (21:29)
[2019-01-30] MEDS: oxyCODONE HCL 5 MG TABLET PO PRN ×2 (01:20→12:19)
[2019-01-30] MEDS: DOCUSATE SODIUM 100 MG CAPSULE (FP) PO SCH ×3 (06:53→21:01)
[2019-01-30] MEDS ORDERED: PT OWN MED DRAWER 7, Y5N ONE (09:20)
[2019-01-30] MEDS: TOPIRAMATE 100 MG TABLET PO SCH ×2 (09:42→21:02)
[2019-01-30] MEDS: amLODIPine BESYLATE 5 MG TABLET (FP) PO SCH (09:43)
[2019-01-30] MEDS: LISINOPRIL 5 MG TABLET (FP) PO SCH (09:43)
[2019-01-30] MEDS: POLYETHYLENE GLYCOL 3350 119 GM BTL PO SCH ×2 (09:44→21:01)
--- NOTE | 2019-01-30 15:53 | PN ---
Progress Note (short form) - Note Progress Note: Patient seen and examined Underwent thyroid biopsy for solid nodule Tolerated well Last Vital Signs Temp Pulse Resp BP Pulse Ox 97.9 F 98 H 20 153/89 100 01/30/19 15:14 01/30/19 15:14 01/30/19 15:14 01/30/19 15:14 01/30/19 09:00 Lungs Clear Cor-RSR Neck supple Ext- negative CBC, BMP 01/28/19 06:45 01/28/19 06:45 Current Medications Generic Name Dose Route Start Last Admin Trade Name Freq PRN Reason Stop Dose Admin Acetaminophen 650 mg 01/27/19 10:45 01/29/19 21:29 Tylenol Oral Solution - PO 650 mg Q4H PRN Administration PAIN LEVEL 1-5 Alprazolam 0.25 mg 01/24/19 16:11 01/25/19 01:00 Xanax - PO 0.25 mg Q8H PRN Administration ANXIETY Amlodipine Besylate 5 mg 01/27/19 11:00 01/30/19 09:43 Norvasc - PO Not Given DAILY [facility] Docusate Sodium 100 mg 01/26/19 14:00 01/30/19 14:59 Colace - PO 100 mg TID [facility] Administration Lisinopril 5 mg 01/27/19 11:00 01/30/19 09:43 Prinivil PO Not Given DAILY [facility] Magnesium Citrate 300 ml 01/27/19 10:46 Citroma - PO PRN PRN CONSTIPATION Nortriptyline HCl 50 mg 01/24/19 22:00 01/29/19 21:14 Pamelor - PO 50 mg HS [facility] Administration Oxycodone HCl 5 mg 01/26/19 14:26 01/30/19 12:19 Roxicodone - PO 5 mg Q6H PRN Administration PAIN LEVEL 6-10 Polyethylene Glycol 17 gm 01/27/19 22:00 01/30/19 09:44 Miralax (For Daily Use) - PO Not Given BID [facility] Senna 1 tab 01/26/19 22:00 01/29/19 21:12 Senna - PO 1 tab HS [facility] Administration Sumatriptan Succinate 50 mg 01/25/19 11:55 01/28/19 20:11 Imitrex - PO 50 mg PRN PRN Administration HEADACHE Topiramate 100 mg 01/24/19 22:00 01/30/19 09:42 Topamax - PO 100 mg BID [facility] Administration Venlafaxine HCl 150 mg 01/26/19 22:00 01/29/19 21:13 Effexor Xr - PO 150 mg HS [facility] Administration Impression: 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 Await path.
--- NOTE | 2019-01-30 15:57 | PN ---
Progress Note, Physician History of Present Illness: pulmonary alert,no distress s/p thyroid bx. lung bx + necrosis,non-diagnostic - Current Medication List Current Medications: Active Medications Acetaminophen (Tylenol Oral Solution -) 650 mg PO Q4H PRN PRN Reason: PAIN LEVEL 1-5 Last Admin: 01/29/19 21:29 Dose: 650 mg Alprazolam (Xanax -) 0.25 mg PO Q8H PRN PRN Reason: ANXIETY Last Admin: 01/25/19 01:00 Dose: 0.25 mg Amlodipine Besylate (Norvasc -) 5 mg PO DAILY [facility] Last Admin: 01/30/19 09:43 Dose: Not Given Docusate Sodium (Colace -) 100 mg PO TID [facility] Last Admin: 01/30/19 14:59 Dose: 100 mg Lisinopril (Prinivil) 5 mg PO DAILY [facility] Last Admin: 01/30/19 09:43 Dose: Not Given Magnesium Citrate (Citroma -) 300 ml PO PRN PRN PRN Reason: CONSTIPATION Nortriptyline HCl (Pamelor -) 50 mg PO [facility] Last Admin: 01/29/19 21:14 Dose: 50 mg Oxycodone HCl (Roxicodone -) 5 mg PO Q6H PRN PRN Reason: PAIN LEVEL 6-10 Last Admin: 01/30/19 12:19 Dose: 5 mg Polyethylene Glycol (Miralax (For Daily Use) -) 17 gm PO BID [facility] Last Admin: 01/30/19 09:44 Dose: Not Given Senna (Senna -) 1 tab PO [facility] Last Admin: 01/29/19 21:12 Dose: 1 tab Sumatriptan Succinate (Imitrex -) 50 mg PO PRN PRN PRN Reason: HEADACHE Last Admin: 01/28/19 20:11 Dose: 50 mg Topiramate (Topamax -) 100 mg PO BID [facility] Last Admin: 01/30/19 09:42 Dose: 100 mg Venlafaxine HCl (Effexor Xr -) 150 mg PO [facility] Last Admin: 01/29/19 21:13 Dose: 150 mg - Objective Vital Signs: Vital Signs Temperature 97.9 F 01/30/19 15:14 Pulse Rate 98 H 01/30/19 15:14 Respiratory Rate 20 07/31/19 15:14 Blood Pressure 153/89 07/31/19 15:14 O2 Sat by Pulse Oximetry (%) 100 01/30/19 09:00 Constitutional: Yes: Well Nourished, Calm Eyes: Yes: WNL HENT: Yes: WNL Neck: Yes: WNL Cardiovascular: Yes: Regular Rate and Rhythm, S1, S2 Respiratory: Yes: CTA Bilaterally Gastrointestinal: Yes: Normal Bowel Sounds, Soft Extremities: Yes: WNL Edema: No Labs: Problem List - Problems (1) Abnormal chest CT Code(s): R93.89 - ABNORMAL FINDINGS ON DX IMAGING OF OTH BODY STRUCTURES (2) Depression Code(s): F32.9 - MAJOR DEPRESSIVE DISORDER, SINGLE EPISODE, UNSPECIFIED Qualifiers: Depression Type: unspecified Qualified Code(s): F32.9 - Major depressive disorder, single episode, unspecified (3) Hypertension Code(s): I10 - ESSENTIAL (PRIMARY) HYPERTENSION Qualifiers: Hypertension type: essential hypertension Qualified Code(s): I10 - Essential (primary) hypertension (4) Neoplasm of cervical vertebra Code(s): D49.2 - NEOPLASM OF UNSP BEHAVIOR OF BONE, SOFT TISSUE, AND SKIN (5) Thyroid lesion Code(s): E07.89 - OTHER SPECIFIED DISORDERS OF THYROID (6) Headache Code(s): R51 - HEADACHE Qualifiers: Headache type: unspecified Headache chronicity pattern: unspecified pattern Intractability: not intractable Qualified Code(s): R51 - Headache Assessment/Plan IMP BILATERAL PULMONARY NODULES R/O MALIGNANT IN VIEW OF C-SPINE FINDINGS ? METS VS BRONCHOAVEOLAR CA NECK PAIN HTN CYSTIC THYROID MASS HEADACHES PLAN ANALGESICS CHECK PATH THYROID NODULE DR SMALL Problem List - Problems (1) Abnormal chest CT Code(s): R93.89 - ABNORMAL FINDINGS ON DX IMAGING OF OTH BODY STRUCTURES (2) Depression Code(s): F32.9 - MAJOR DEPRESSIVE DISORDER, SINGLE EPISODE, UNSPECIFIED Qualifiers: Depression Type: unspecified Qualified Code(s): F32.9 - Major depressive disorder, single episode, unspecified (3) Hypertension Code(s): I10 - ESSENTIAL (PRIMARY) HYPERTENSION Qualifiers: Hypertension type: essential hypertension Qualified Code(s): I10 - Essential (primary) hypertension (4) Neoplasm of cervical vertebra Code(s): D49.2 - NEOPLASM OF UNSP BEHAVIOR OF BONE, SOFT TISSUE, AND SKIN (5) Thyroid lesion Code(s): E07.89 - OTHER SPECIFIED DISORDERS OF THYROID (6) Headache Code(s): R51 - HEADACHE Qualifiers: Headache type: unspecified Headache chronicity pattern: unspecified pattern Intractability: not intractable Qualified Code(s): R51 - Headache
[2019-01-30] MEDS ORDERED: LISINOPRIL 5 MG TABLET (FP) PO ONE (16:15)
--- NOTE | 2019-01-30 16:16 | PN ---
Progress Note (short form) - Note Progress Note: Current Medications Acetaminophen (Tylenol Oral Solution -) 650 mg PO Q4H PRN PRN Reason: PAIN LEVEL 1-5 Last Admin: 01/29/19 21:29 Dose: 650 mg Alprazolam (Xanax -) 0.25 mg PO Q8H PRN PRN Reason: ANXIETY Last Admin: 01/25/19 01:00 Dose: 0.25 mg Amlodipine Besylate (Norvasc -) 5 mg PO DAILY [facility] Last Admin: 01/30/19 09:43 Dose: Not Given Docusate Sodium (Colace -) 100 mg PO TID [facility] Last Admin: 01/30/19 14:59 Dose: 100 mg Lisinopril (Prinivil) 5 mg PO DAILY [facility] Last Admin: 01/30/19 09:43 Dose: Not Given Lisinopril (Prinivil) 5 mg PO NOW ONE Stop: 01/30/19 16:16 Magnesium Citrate (Citroma -) 300 ml PO PRN PRN PRN Reason: CONSTIPATION Nortriptyline HCl (Pamelor -) 50 mg PO [facility] Last Admin: 01/29/19 21:14 Dose: 50 mg Oxycodone HCl (Roxicodone -) 5 mg PO Q6H PRN PRN Reason: PAIN LEVEL 6-10 Last Admin: 01/30/19 12:19 Dose: 5 mg Polyethylene Glycol (Miralax (For Daily Use) -) 17 gm PO BID [facility] Last Admin: 01/30/19 09:44 Dose: Not Given Senna (Senna -) 1 tab PO [facility] Last Admin: 01/29/19 21:12 Dose: 1 tab Sumatriptan Succinate (Imitrex -) 50 mg PO PRN PRN PRN Reason: HEADACHE Last Admin: 01/28/19 20:11 Dose: 50 mg Topiramate (Topamax -) 100 mg PO BID [facility] Last Admin: 01/30/19 09:42 Dose: 100 mg Venlafaxine HCl (Effexor Xr -) 150 mg PO [facility] Last Admin: 01/29/19 21:13 Dose: 150 mg Laboratory Results - last 24 hr 01/25/19 20:25 TB Test (QFT) Nil 0.02 TB Test (QFT) Mitogen >10.00 TB Test (QFT) Antigen 0.03 TB Test (QFT) Negative TB Positive Criteria Vital Signs Temperature 97.9 F 01/30/19 15:14 Pulse Rate 98 H 01/30/19 15:14 Respiratory Rate 20 01/30/19 15:14 Blood Pressure 153/89 01/30/19 15:14 O2 Sat by Pulse Oximetry (%) 100 01/30/19 09:00 CC; s/p needle Thyroid Bx ```````````````````````````````````````` skin--NL color eyes--midline; EOMI neck--bandaid in Lt thryoid lobe heart--RR lungs--grossly clear, unlabored abd--soft, BS+, NT neuro--awake; coherent; no gross deficits ````````````````````````````` Summ > Bone neoplasm--multi-levels at C-spine as shown by MRI (but not on contrast CT ); suspicious for metastatic disease but origin still in question (no such lesions were found on head/neck MRI a year ago). Out-Pt SPEP relayed by PCP as "negative" for M spike; finalized path interpretation of the lung biopsy specimen was inconclusive (showed mainly necrotic tissue) and no evidence of granuloma formation: PLAN: supportive measures and will need to proceed with C- spine surgery in order to obtain a specimen. Cont pain control measures for now > AbnL lung imaging--raised suspicion for neoplastic disease (and possible primary source of presumed metastasis to C-spine); however; tissue submitted did not reveal any presence of neoplastic cells; but only necrotic tissue; thus cannot fully r/o malignancy. Issue of past exposure to TB has been considered ( sister was ill as a child) but never had active disease though she was Tx with INH for a period of time as a youth. PLAN: have asked for AFB-PAS staining of biopsy specimen > Tachycardia--mild; resolved > Htn--BP meds held due to low BP this AM; and fast HR; resume CELSA > Multi/nod thyroid--as per recent US; TSH okay; s/p thyroid Bx today! > Constipation--helped by laxatives > Hx of migraines--on anti-migr meds > hx of depression--on SSRI & TCA as per neuro ~~~~~~~~~~~~~~~~~~~~~~~~~~~~ Family in attendance ``````````````````````````````````` Dr Paul Problem List - Problems (1) Neoplasm of cervical vertebra Code(s): D49.2 - NEOPLASM OF UNSP BEHAVIOR OF BONE, SOFT TISSUE, AND SKIN (2) Headache Code(s): R51 - HEADACHE Qualifiers: Headache type: unspecified Headache chronicity pattern: unspecified pattern Intractability: not intractable Qualified Code(s): R51 - Headache (3) Abnormal chest CT Code(s): R93.89 - ABNORMAL FINDINGS ON DX IMAGING OF OTH BODY STRUCTURES (4) Thyroid lesion Code(s): E07.89 - OTHER SPECIFIED DISORDERS OF THYROID (5) Hypertension Code(s): I10 - ESSENTIAL (PRIMARY) HYPERTENSION Qualifiers: Hypertension type: essential hypertension Qualified Code(s): I10 - Essential (primary) hypertension (6) Depression Code(s): F32.9 - MAJOR DEPRESSIVE DISORDER, SINGLE EPISODE, UNSPECIFIED Qualifiers: Depression Type: unspecified Qualified Code(s): F32.9 - Major depressive disorder, single episode, unspecified
[2019-01-30] MEDS ORDERED: amLODIPine BESYLATE 2.5 MG TABLET (FP) PO ONE (16:17)
[2019-01-30] MEDS: ACETAMINOPHEN 650 MG/20.3 ML ORAL SOLUTION (CUPS) PO PRN ×2 (16:29→23:00)
[2019-01-30] MEDS ORDERED: MAG HYDROX/AL HYDROX/SIMETH 30 ML UNIT-DOSE CUP PO ONE (18:00)
[2019-01-30] MEDS ORDERED: PANTOPRAZOLE SODIUM 40 MG VIAL IVPUSH ONE (18:45)
[2019-01-30] MEDS: NORTRIPTYLINE HCL 25 MG CAPSULE PO SCH (21:00)
[2019-01-30] MEDS: VENLAFAXINE HCL 75 MG E.R. CAPSULES (FP) PO SCH (21:01)
[2019-01-30] MEDS: SENNOSIDES 8.6MG TABLET (FP) PO SCH (21:02)
--- NOTE | 2019-01-30 23:50 | PN ---
Progress Note (short form) - Note Progress Note: Patient remains stable and is using soft Cervical collar for comfort. Patient with persisting neck pain and Left upper extremity radicular pain which is likely associated with the C45 disc protrusion. Patient with multifocal lesions in the Cervical spine as well as in the chest and with Thyroid cystic lesion with no clear primary identified. Lung biopsy is non-conclusive. Thyroid lesion biopsied today with pathology pending. Case discussed in detail with Dr. Paul. The important need for tissue diagnosis was reviewed. Spinal lesions are reasonably accessible for biopsy. Although the Cervical disc does not independently mandate surgical attention, it appears to represent a source of significant pain for her. In light of the need for establishment of a tissue diagnosis and the desire to obtain more tissue than a needle/core biopsy and the continued discomfort the patient is experiencing from her Cervical disc, we discussed the potential for a single procedure to address the spondylosis and to obtain tissue for analysis. C5 corpectomy would be a relatively well tolerated method of achieving these goals. I discussed this potential plan with the patient and her family in great detail. I described the risks, benefits and alternatives to Cervical 5 Corpectomy and reconstruction with a PEEK cage and anterior plating. I explained that the risks included, but were not limited to: , coma, paralysis, bleeding, infection, CSF leak possibly requiring spinal drainage or additional surgery, instrumentation migration/malposition/malfunction,failure to fuse and the need for additional surgery. I explained that establishment of a tissue diagnosis was more likely, however not assured. All questions were answered and informed consent was obtained. The patient was offered the opportunity to seek another opinion or another surgeon. The patient asks that we proceed as described. I discussed the potential for surgery on morning, however, after discussion with the patient and family, we decided that waiting for preliminary analysis of the thyroid biopsy would be reasonable and they ask that I make preparations to do the surgery as described on the next elective day which I am available, Monday February 04, 2019.
[2019-01-31] MEDS: DOCUSATE SODIUM 100 MG CAPSULE (FP) PO SCH ×4 (06:51→22:20)
--- NOTE | 2019-01-31 09:20 | PN ---
Progress Note (short form) - Note Progress Note: Patient sitting comfortably in chair. Using Cervical collar. Reviewed course of care and plans for surgery on Monday further. All questions answered.
[2019-01-31] MEDS ORDERED: PT OWN MED DRAWER 7, Y5N ONE (10:45)
[2019-01-31] MEDS: LISINOPRIL 5 MG TABLET (FP) PO SCH (10:47)
[2019-01-31] MEDS: amLODIPine BESYLATE 5 MG TABLET (FP) PO SCH (10:48)
[2019-01-31] MEDS: TOPIRAMATE 100 MG TABLET PO SCH ×2 (10:49→22:12)
--- NOTE | 2019-01-31 10:52 | PN ---
Progress Note (short form) - Note Progress Note: PULMONARY Awaiting thyroid biopsy results, tentatively scheduled for spinal surgery. Does report some chest tightness and shortness of breath today. No cough or wheezing. No fevers, chills or sweats. Vital Signs Period Temp Pulse Resp BP Sys/Cho Pulse Ox Last 24 Hr 97.9 F-98.6 F 75-98 18-20 121-153/75-89 100 Gen: NAD at rest Heart: RRR Lung: decreased breath sounds at the bases Abd: soft, nontender Ext: no edema CBC, BMP 01/28/19 06:45 01/28/19 06:45 Active Medications Acetaminophen (Tylenol Oral Solution -) 650 mg PO Q4H PRN PRN Reason: PAIN LEVEL 1-5 Last Admin: 01/30/19 23:00 Dose: 650 mg Alprazolam (Xanax -) 0.25 mg PO Q8H PRN PRN Reason: ANXIETY Last Admin: 01/25/19 01:00 Dose: 0.25 mg Amlodipine Besylate (Norvasc -) 5 mg PO DAILY [facility] Last Admin: 01/30/19 09:43 Dose: Not Given Docusate Sodium (Colace -) 100 mg PO TID [facility] Last Admin: 01/31/19 06:51 Dose: 100 mg Lisinopril (Prinivil) 5 mg PO DAILY [facility] Last Admin: 01/30/19 09:43 Dose: Not Given Magnesium Citrate (Citroma -) 300 ml PO PRN PRN PRN Reason: CONSTIPATION Nortriptyline HCl (Pamelor -) 50 mg PO [facility] Last Admin: 01/30/19 21:00 Dose: 50 mg Oxycodone HCl (Roxicodone -) 5 mg PO Q6H PRN PRN Reason: PAIN LEVEL 6-10 Last Admin: 01/30/19 12:19 Dose: 5 mg Polyethylene Glycol (Miralax (For Daily Use) -) 17 gm PO BID [facility] Last Admin: 01/30/19 21:01 Dose: 17 grams Senna (Senna -) 1 tab PO [facility] Last Admin: 01/30/19 21:02 Dose: 1 tab Sumatriptan Succinate (Imitrex -) 50 mg PO PRN PRN PRN Reason: HEADACHE Last Admin: 01/28/19 20:11 Dose: 50 mg Topiramate (Topamax -) 100 mg PO BID [facility] Last Admin: 01/30/19 21:02 Dose: 100 mg Venlafaxine HCl (Effexor Xr -) 150 mg PO [facility] Last Admin: 01/30/19 21:01 Dose: 150 mg A/P Metastatic Disease r/o Lung Ca HTN - will order CXR - trial of inhaled bronchodilators - f/u thyroid pathology - pain control - DVT prophylaxis
[2019-01-31] MEDS: ACETAMINOPHEN 650 MG/20.3 ML ORAL SOLUTION (CUPS) PO PRN ×2 (10:54→22:11)
[2019-01-31] MEDS: POLYETHYLENE GLYCOL 3350 119 GM BTL PO SCH ×2 (10:54→22:13)
[2019-01-31 13:52] VITALS: BMI 24.5
[2019-01-31] MEDS: ALBUTEROL SO4 2.5/IPRATROPIUM 0.5 INH SOL 3 ML VIAL.NEB. NEB SCH ×2 (14:00→22:13)
--- NOTE | 2019-01-31 18:05 | PN ---
Progress Note (short form) - Note Progress Note: Current Medications Acetaminophen (Tylenol Oral Solution -) 650 mg PO Q4H PRN PRN Reason: PAIN LEVEL 1-5 Last Admin: 01/31/19 10:54 Dose: 650 mg Albuterol/Ipratropium (Duoneb -) 1 amp NEB RTID [facility] Last Admin: 01/31/19 14:00 Dose: 1 amp Alprazolam (Xanax -) 0.25 mg PO Q8H PRN PRN Reason: ANXIETY Last Admin: 01/25/19 01:00 Dose: 0.25 mg Amlodipine Besylate (Norvasc -) 5 mg PO DAILY [facility] Last Admin: 01/31/19 10:48 Dose: Not Given Docusate Sodium (Colace -) 100 mg PO TID [facility] Last Admin: 01/31/19 14:14 Dose: 100 mg Lisinopril (Prinivil) 5 mg PO DAILY [facility] Last Admin: 01/31/19 10:47 Dose: 5 mg Magnesium Citrate (Citroma -) 300 ml PO PRN PRN PRN Reason: CONSTIPATION Nortriptyline HCl (Pamelor -) 50 mg PO [facility] Last Admin: 01/30/19 21:00 Dose: 50 mg Oxycodone HCl (Roxicodone -) 5 mg PO Q6H PRN PRN Reason: PAIN LEVEL 6-10 Last Admin: 01/30/19 12:19 Dose: 5 mg Polyethylene Glycol (Miralax (For Daily Use) -) 17 gm PO BID [facility] Last Admin: 01/31/19 10:54 Dose: 17 grams Senna (Senna -) 1 tab PO [facility] Last Admin: 01/30/19 21:02 Dose: 1 tab Sumatriptan Succinate (Imitrex -) 50 mg PO PRN PRN PRN Reason: HEADACHE Last Admin: 01/28/19 20:11 Dose: 50 mg Topiramate (Topamax -) 100 mg PO BID [facility] Last Admin: 01/31/19 10:49 Dose: 100 mg Venlafaxine HCl (Effexor Xr -) 150 mg PO [facility] Last Admin: 01/30/19 21:01 Dose: 150 mg Vital Signs Temperature 97.9 F 01/31/19 17:47 Pulse Rate 72 01/31/19 17:47 Respiratory Rate 18 01/31/19 17:47 Blood Pressure 122/63 01/31/19 17:47 O2 Sat by Pulse Oximetry (%) 98 01/31/19 09:00 CC; inspiratory Lt chest and abd discomfort on and off ```````````````````````````````````````` skin--NL color eyes--midline; EOMI neck--bandaid in Lt thryoid lobe heart--RR lungs--grossly clear, unlabored abd--NT neuro--awake; coherent; no gross deficits ````````````````````````````` Summ > Bone neoplasm--multi-levels at C-spine as shown by MRI (but not on contrast CT ); suspicious for metastatic disease but origin still in question (no such lesions were found on head/neck MRI a year ago). Out-Pt SPEP relayed by PCP as "negative" for M spike; finalized path interpretation of the lung biopsy specimen was inconclusive (showed mainly necrotic tissue) and no evidence of granuloma formation: PLAN: will need to proceed with C-spine surgery in order to obtain a specimen. Cont pain control measures for now > Pleuritic chest pain--on and off; felt vague GI discomfort last PM which abated but still has periodic discomfort made worse by either cough or deep breath. EKG done last PM grossly unchanged from prior tracing; CXR unremarkable > AbnL lung imaging--tissue submitted did not reveal any presence of neoplastic cells; but only necrotic tissue; thus cannot fully r/o malignancy. Issue of past exposure to TB has been considered (sister was ill as a child) but never had active disease though she was Tx with INH for a period of time as a youth. PLAN: have asked for AFB-PAS staining of biopsy specimen; quantiferon (gold) test appears to be negative > Tachycardia--resolved > Htn--fluctuates at times > Multi/nod thyroid--as per recent US; TSH okay; s/p thyroid Bx; await results > Constipation--helped by laxatives > Hx of migraines--on anti-migr meds > hx of depression--on SSRI & TCA as per neuro ``````````````````````````````````` Dr Paul Problem List - Problems (1) Neoplasm of cervical vertebra Code(s): D49.2 - NEOPLASM OF UNSP BEHAVIOR OF BONE, SOFT TISSUE, AND SKIN (2) Headache Code(s): R51 - HEADACHE Qualifiers: Headache type: unspecified Headache chronicity pattern: unspecified pattern Intractability: not intractable Qualified Code(s): R51 - Headache (3) Abnormal chest CT Code(s): R93.89 - ABNORMAL FINDINGS ON DX IMAGING OF OTH BODY STRUCTURES (4) Thyroid lesion Code(s): E07.89 - OTHER SPECIFIED DISORDERS OF THYROID (5) Hypertension Code(s): I10 - ESSENTIAL (PRIMARY) HYPERTENSION Qualifiers: Hypertension type: essential hypertension Qualified Code(s): I10 - Essential (primary) hypertension (6) Depression Code(s): F32.9 - MAJOR DEPRESSIVE DISORDER, SINGLE EPISODE, UNSPECIFIED Qualifiers: Depression Type: unspecified Qualified Code(s): F32.9 - Major depressive disorder, single episode, unspecified
[2019-01-31] MEDS: VENLAFAXINE HCL 75 MG E.R. CAPSULES (FP) PO SCH (22:12)
[2019-01-31] MEDS: SENNOSIDES 8.6MG TABLET (FP) PO SCH ×2 (22:12→22:20)
[2019-01-31] MEDS: NORTRIPTYLINE HCL 25 MG CAPSULE PO SCH (22:12)
[2019-02-01] MEDS: oxyCODONE HCL 5 MG TABLET PO PRN ×3 (02:56→23:38)
[2019-02-01] MEDS: DOCUSATE SODIUM 100 MG CAPSULE (FP) PO SCH ×3 (05:43→21:29)
[2019-02-01] MEDS: SUMAtriptan SUCCINATE 50 MG TABLET PO PRN (06:10)
[2019-02-01] MEDS ORDERED: DEXTROSE 50%-WATER - 25 GM/50 ML VIAL IVPUSH ONE (06:36)
[2019-02-01] MEDS: ALBUTEROL SO4 2.5/IPRATROPIUM 0.5 INH SOL 3 ML VIAL.NEB. NEB SCH ×3 (08:27→20:39)
--- NOTE | 2019-02-01 08:54 | PN ---
Progress Note (short form) - Note Progress Note: PULMONARY States chest tightness improved with nebulizers. +nonproductive cough. No fevers or chills. CXR unremarkable. Vital Signs Period Temp Pulse Resp BP Sys/Cho Pulse Ox Last 24 Hr 97.9 F-98.5 F 72-85 18-20 120-131/63-85 98-98 Gen: NAD at rest Heart: RRR Lung: decreased breath sounds at the bases Abd: soft, nontender Ext: no edema CBC, BMP 01/28/19 06:45 01/28/19 06:45 Active Medications Acetaminophen (Tylenol Oral Solution -) 650 mg PO Q4H PRN PRN Reason: PAIN LEVEL 1-5 Last Admin: 01/31/19 22:11 Dose: 650 mg Albuterol/Ipratropium (Duoneb -) 1 amp NEB RTID [facility] Last Admin: 02/01/19 08:27 Dose: 1 amp Alprazolam (Xanax -) 0.25 mg PO Q8H PRN PRN Reason: ANXIETY Last Admin: 01/25/19 01:00 Dose: 0.25 mg Amlodipine Besylate (Norvasc -) 5 mg PO DAILY [facility] Last Admin: 01/31/19 10:48 Dose: Not Given Docusate Sodium (Colace -) 100 mg PO TID [facility] Last Admin: 02/01/19 05:43 Dose: Not Given Lisinopril (Prinivil) 5 mg PO DAILY [facility] Last Admin: 01/31/19 10:47 Dose: 5 mg Magnesium Citrate (Citroma -) 300 ml PO PRN PRN PRN Reason: CONSTIPATION Nortriptyline HCl (Pamelor -) 50 mg PO [facility] Last Admin: 01/31/19 22:12 Dose: 50 mg Oxycodone HCl (Roxicodone -) 5 mg PO Q6H PRN PRN Reason: PAIN LEVEL 6-10 Last Admin: 02/01/19 02:56 Dose: 5 mg Polyethylene Glycol (Miralax (For Daily Use) -) 17 gm PO BID [facility] Last Admin: 01/31/19 22:13 Dose: 17 grams Senna (Senna -) 1 tab PO [facility] Last Admin: 01/31/19 22:20 Dose: Not Given Sumatriptan Succinate (Imitrex -) 50 mg PO PRN PRN PRN Reason: HEADACHE Last Admin: 02/01/19 06:10 Dose: 50 mg Topiramate (Topamax -) 100 mg PO BID [facility] Last Admin: 01/31/19 22:12 Dose: 100 mg Venlafaxine HCl (Effexor Xr -) 150 mg PO HS [facility] Last Admin: 01/31/19 22:12 Dose: 150 mg A/P Metastatic Disease r/o Lung Ca HTN - inhaled bronchodilators - incentive spirometry - f/u thyroid pathology - pain control - DVT prophylaxis
[2019-02-01] MEDS: LISINOPRIL 5 MG TABLET (FP) PO SCH (10:55)
[2019-02-01] MEDS: amLODIPine BESYLATE 5 MG TABLET (FP) PO SCH (10:55)
[2019-02-01] MEDS: TOPIRAMATE 100 MG TABLET PO SCH ×2 (10:56→21:32)
[2019-02-01] MEDS: POLYETHYLENE GLYCOL 3350 119 GM BTL PO SCH ×2 (10:56→21:30)
--- NOTE | 2019-02-01 15:37 | PATH ---
Cytology Non-Gynecological Report Patient Name: CARLA SPENCE Med. Rec. #: [id number] /Age/Gender: 1965 (Age: 53) / F Account: [id number] Location: [facility] MED/SURG Taken: 01/30/2019 Received: 01/30/2019 Reported: 02/01/2019 Physicians: Manjula Lopez M.D. Norman Rosen, M.D. Specimen(s) Received LEFT THYROID FNA Clinical History Left, 1.37 x 1.16 x 1.07 cm Final Diagnosis THYROID, LEFT, FINE NEEDLE ASPIRATION: SATISFACTORY FOR EVALUATION. BETHESDA III: ATYPIA OF UNDERTERMINED SIGNIFICANCE/FOLLICULAR LESION OF UNDETERMINED SIGNIFICANCE. PREDOMINANTLY COMPRISED BY HURTHLE CELLS DISPERSED AGGREGATES, CLUSTERS AND SINGLE CELLS IN A BACKGROUND OF FEW SMALL FOLLICULAR CELLS, MINIMAL COLLOID, AND RARE LYMPHOCYTES. SEE COMMENT. Comment: No cytologic atypia identified. Immunohistochemical stains performed and interpreted at [facility] show rare aggregate of lymphocytes highlighted by CD45. Immunohistochemical stains performed at [place], [place] ([id number]) and interpreted at [facility] show thyroglobulin is positive, while negative for calcitonin. The presence of lymphocytes raises the possibility of a Hurthle cell nodule in the setting of Chronic lymphocytic thyroiditis; however a more significant follicular lesion cannot be completely ruled out in this material. Suggest clinical, radiologic, serologic correlation and repeat sampling after an appropriate interval with material for molecular studies (Thyroseq), as warranted. Prior materials are noted. Findings discussed with Dr. Brizuela. Positive and negative controls (internal if applicable) show appropriate results. Electronically Signed Becky Stroud M.D. Gross Description Received are eight direct smears, four of which are air-dried and Diff-Quik stained, and four of which are alcohol fixed and Pap stained. Also received is 20 ml of bloody formalin from which one cellblock is prepared.
--- NOTE | 2019-02-01 16:20 | PN ---
Progress Note (short form) - Note Progress Note: Current Medications Acetaminophen (Tylenol Oral Solution -) 650 mg PO Q4H PRN PRN Reason: PAIN LEVEL 1-5 Last Admin: 01/31/19 22:11 Dose: 650 mg Albuterol/Ipratropium (Duoneb -) 1 amp NEB RTID [facility] Last Admin: 02/01/19 14:09 Dose: 1 amp Alprazolam (Xanax -) 0.25 mg PO Q8H PRN PRN Reason: ANXIETY Last Admin: 01/25/19 01:00 Dose: 0.25 mg Amlodipine Besylate (Norvasc -) 5 mg PO DAILY [facility] Last Admin: 02/01/19 10:55 Dose: 5 mg Docusate Sodium (Colace -) 100 mg PO TID [facility] Last Admin: 02/01/19 13:32 Dose: 100 mg Lisinopril (Prinivil) 5 mg PO DAILY [facility] Last Admin: 02/01/19 10:55 Dose: 5 mg Magnesium Citrate (Citroma -) 300 ml PO PRN PRN PRN Reason: CONSTIPATION Nortriptyline HCl (Pamelor -) 50 mg PO [facility] Last Admin: 01/31/19 22:12 Dose: 50 mg Oxycodone HCl (Roxicodone -) 5 mg PO Q6H PRN PRN Reason: PAIN LEVEL 6-10 Last Admin: 02/01/19 13:30 Dose: 5 mg Polyethylene Glycol (Miralax (For Daily Use) -) 17 gm PO BID [facility] Last Admin: 02/01/19 10:56 Dose: 17 grams Senna (Senna -) 1 tab PO [facility] Last Admin: 01/31/19 22:20 Dose: Not Given Sumatriptan Succinate (Imitrex -) 50 mg PO PRN PRN PRN Reason: HEADACHE Last Admin: 02/01/19 06:10 Dose: 50 mg Topiramate (Topamax -) 100 mg PO BID [facility] Last Admin: 02/01/19 10:56 Dose: 100 mg Venlafaxine HCl (Effexor Xr -) 150 mg PO [facility] Last Admin: 01/31/19 22:12 Dose: 150 mg Vital Signs Temperature 98.0 F 02/01/19 09:00 Pulse Rate 97 H 02/01/19 09:00 Respiratory Rate 18 02/01/19 09:00 Blood Pressure 113/86 02/01/19 09:00 O2 Sat by Pulse Oximetry (%) 98 01/31/19 21:00 CC; diminshed Lt sided chest discomfort; ongoing Lt neck pain ```````````````````````````````````````` skin--NL color eyes--midline; EOMI neck--no appreciale masses heart--RR lungs--grossly clear, unlabored abd--NT neuro--awake; coherent; no gross deficits ````````````````````````````` Summ > Bone neoplasm--multi-levels at C-spine as shown by MRI (but not on contrast CT ); suspicious for metastatic disease but origin still in question (no such lesions were found on head/neck MRI a year ago). Out-Pt SPEP relayed by PCP as "negative" for M spike; finalized path interpretation of the lung biopsy specimen was inconclusive (showed mainly necrotic tissue) and no evidence of granuloma formation; final result of Thyroid Bx does not speak for definite malignancy: PLAN: will need to proceed with C-spine surgery in order to obtain a specimen. Cont pain control measures for now > Pleuritic chest pain--seems to have subsided > AbnL lung imaging--tissue submitted did not reveal any presence of neoplastic cells; but only necrotic tissue; thus cannot fully r/o malignancy. Quantiferon test appears to be negative > Tachycardia--resolved. > Htn--fluctuates at times; echo is relatively benign > Multi/nod thyroid--as per recent US; TSH okay; s/p thyroid Bx; results show atypia of unclear significance but mention is made of Hurthle cells; though no radiologic evidence of local dz or disrupted thyroid capsule is demonstrated. Will now need to obtain specimen of involved portion of C-spine as a definitive diagnostic procedure. > Constipation--helped by laxatives > Hx of migraines--on anti-migr meds > hx of depression--on SSRI & TCA as per neuro ````````````````````````````````````````````````` family at bedside; discussed results ~~~~~~~~~~~~~~~~~~~~~~~~~~~~~~~~~ Dr Paul Problem List - Problems (1) Neoplasm of cervical vertebra Code(s): D49.2 - NEOPLASM OF UNSP BEHAVIOR OF BONE, SOFT TISSUE, AND SKIN (2) Headache Code(s): R51 - HEADACHE Qualifiers: Headache type: unspecified Headache chronicity pattern: unspecified pattern Intractability: not intractable Qualified Code(s): R51 - Headache (3) Abnormal chest CT Code(s): R93.89 - ABNORMAL FINDINGS ON DX IMAGING OF OTH BODY STRUCTURES (4) Thyroid lesion Code(s): E07.89 - OTHER SPECIFIED DISORDERS OF THYROID (5) Hypertension Code(s): I10 - ESSENTIAL (PRIMARY) HYPERTENSION Qualifiers: Hypertension type: essential hypertension Qualified Code(s): I10 - Essential (primary) hypertension (6) Depression Code(s): F32.9 - MAJOR DEPRESSIVE DISORDER, SINGLE EPISODE, UNSPECIFIED Qualifiers: Depression Type: unspecified Qualified Code(s): F32.9 - Major depressive disorder, single episode, unspecified
--- NOTE | 2019-02-01 19:13 | PN ---
Progress Note (short form) - Note Progress Note: Patient seen and examined Neck pain. Has a neck collar on Last Vital Signs Temp Pulse Resp BP Pulse Ox 98.7 F 84 18 123/79 98 02/01/19 19:09 02/01/19 19:09 02/01/19 19:09 02/01/19 19:09 01/31/19 21:00 Cor: RSR, No murmurs, No gallops Lungs: Clear to P&A Abd: Soft, Normal bowel sounds, No organomegaly Ext:No significant edema Labs/Meds reviewed a/p 53 y/o patient with presumed metastatic bone lesions on imaging For C 5 corpectomy 02/04 Lung biopsy --inflammation/necrotic 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 will follow
[2019-02-01] MEDS ORDERED: INSULIN (NOVOLOG) ASPART 100 UNITS/ML 10ML VIAL ONE (21:20)
[2019-02-01] MEDS: VENLAFAXINE HCL 75 MG E.R. CAPSULES (FP) PO SCH (21:30)
[2019-02-01] MEDS: SENNOSIDES 8.6MG TABLET (FP) PO SCH (21:31)
[2019-02-01] MEDS: NORTRIPTYLINE HCL 25 MG CAPSULE PO SCH (21:31)
[2019-02-01] MEDS: ACETAMINOPHEN 650 MG/20.3 ML ORAL SOLUTION (CUPS) PO PRN (22:35)
[2019-02-02] MEDS: ACETAMINOPHEN 650 MG/20.3 ML ORAL SOLUTION (CUPS) PO PRN ×2 (02:19→21:32)
[2019-02-02] MEDS: DOCUSATE SODIUM 100 MG CAPSULE (FP) PO SCH ×3 (06:00→21:27)
[2019-02-02] MEDS: ALBUTEROL SO4 2.5/IPRATROPIUM 0.5 INH SOL 3 ML VIAL.NEB. NEB SCH ×2 (08:18→20:19)
[2019-02-02] MEDS: TOPIRAMATE 100 MG TABLET PO SCH ×2 (10:22→21:28)
[2019-02-02] MEDS: POLYETHYLENE GLYCOL 3350 119 GM BTL PO SCH ×2 (10:22→21:29)
[2019-02-02] MEDS: LISINOPRIL 5 MG TABLET (FP) PO SCH (10:22)
[2019-02-02] MEDS: amLODIPine BESYLATE 5 MG TABLET (FP) PO SCH (10:22)
--- NOTE | 2019-02-02 12:21 | PN ---
Progress Note (short form) - Note Progress Note: PULMONARY Denies shortness of breath or chest tightness. Vital Signs Period Temp Pulse Resp BP Sys/Cho Pulse Ox Last 24 Hr 97.7 F-98.7 F 69-84 18-18 123-127/73-79 Gen: NAD at rest Heart: RRR Lung: decreased breath sounds at the bases Abd: soft, nontender Ext: no edema CBC, BMP 01/28/19 06:45 01/28/19 06:45 Active Medications Acetaminophen (Tylenol Oral Solution -) 650 mg PO Q4H PRN PRN Reason: PAIN LEVEL 1-5 Last Admin: 02/02/19 02:19 Dose: 650 mg Albuterol/Ipratropium (Duoneb -) 1 amp NEB RTID [facility] B[facility]S [facility] Last Admin: 02/02/19 08:18 Dose: 1 amp Alprazolam (Xanax -) 0.25 mg PO Q8H PRN PRN Reason: ANXIETY Last Admin: 01/25/19 01:00 Dose: 0.25 mg Amlodipine Besylate (Norvasc -) 5 mg PO DAILY [facility] Last Admin: 02/02/19 10:22 Dose: 5 mg Docusate Sodium (Colace -) 100 mg PO TID [facility] 234 B[facility]S [facility] Last Admin: 02/02/19 06:00 Dose: Not Given Lisinopril (Prinivil) 5 mg PO DAILY [facility] 234 B[facility]S [facility] Last Admin: 02/02/19 10:22 Dose: 5 mg Magnesium Citrate (Citroma -) 300 ml PO PRN PRN PRN Reason: CONSTIPATION Nortriptyline HCl (Pamelor -) 50 mg PO [facility] Last Admin: 02/01/19 21:31 Dose: 50 mg Oxycodone HCl (Roxicodone -) 5 mg PO Q6H PRN PRN Reason: PAIN LEVEL 6-10 Last Admin: 02/01/19 23:38 Dose: 5 mg Polyethylene Glycol (Miralax (For Daily Use) -) 17 gm PO BID [facility] B[facility]S [facility] Last Admin: 02/02/19 10:22 Dose: 17 grams Senna (Senna -) 1 tab PO HS [facility] 234 BEDS [facility] Last Admin: 02/01/19 21:31 Dose: 1 tab Sumatriptan Succinate (Imitrex -) 50 mg PO PRN PRN PRN Reason: HEADACHE Last Admin: 02/01/19 06:10 Dose: 50 mg Topiramate (Topamax -) 100 mg PO BID [facility] B[facility]S [facility] Last Admin: 02/02/19 10:22 Dose: 100 mg Venlafaxine HCl (Effexor Xr -) 150 mg PO [facility] Last Admin: 02/01/19 21:30 Dose: 150 mg A/P Metastatic Disease r/o Lung Ca HTN - inhaled bronchodilators - incentive spirometry - for OR on monday - pain control - DVT prophylaxis
--- NOTE | 2019-02-02 13:31 | PN ---
Progress Note (short form) - Note Progress Note: Current Medications Acetaminophen (Tylenol Oral Solution -) 650 mg PO Q4H PRN PRN Reason: PAIN LEVEL 1-5 Last Admin: 02/02/19 02:19 Dose: 650 mg Albuterol/Ipratropium (Duoneb -) 1 amp NEB RBID [facility] Alprazolam (Xanax -) 0.25 mg PO Q8H PRN PRN Reason: ANXIETY Last Admin: 01/25/19 01:00 Dose: 0.25 mg Amlodipine Besylate (Norvasc -) 5 mg PO DAILY [facility] Last Admin: 02/02/19 10:22 Dose: 5 mg Docusate Sodium (Colace -) 100 mg PO TID [facility] Last Admin: 02/02/19 06:00 Dose: Not Given Lisinopril (Prinivil) 5 mg PO DAILY [facility] Last Admin: 02/02/19 10:22 Dose: 5 mg Magnesium Citrate (Citroma -) 300 ml PO PRN PRN PRN Reason: CONSTIPATION Nortriptyline HCl (Pamelor -) 50 mg PO [facility] Last Admin: 02/01/19 21:31 Dose: 50 mg Oxycodone HCl (Roxicodone -) 5 mg PO Q6H PRN PRN Reason: PAIN LEVEL 6-10 Last Admin: 02/01/19 23:38 Dose: 5 mg Polyethylene Glycol (Miralax (For Daily Use) -) 17 gm PO BID [facility] Last Admin: 02/02/19 10:22 Dose: 17 grams Senna (Senna -) 1 tab PO [facility] Last Admin: 02/01/19 21:31 Dose: 1 tab Sumatriptan Succinate (Imitrex -) 50 mg PO PRN PRN PRN Reason: HEADACHE Last Admin: 02/01/19 06:10 Dose: 50 mg Topiramate (Topamax -) 100 mg PO BID [facility] Last Admin: 02/02/19 10:22 Dose: 100 mg Venlafaxine HCl (Effexor Xr -) 150 mg PO [facility] Last Admin: 02/01/19 21:30 Dose: 150 mg Vital Signs Temperature 98.8 F 02/02/19 10:00 Pulse Rate 96 H 02/02/19 10:00 Respiratory Rate 18 02/02/19 10:00 Blood Pressure 135/75 02/02/19 10:00 O2 Sat by Pulse Oximetry (%) 98 01/31/19 21:00 CC; no new issues; feels well ```````````````````````````````````````` skin--NL color eyes--midline; EOMI neck--soft collar heart--RR lungs--grossly clear, unlabored neuro--awake; coherent; no gross deficits ````````````````````````````` Summ > Bone neoplasm--multi-levels at C-spine as shown by out-patient MRI (but not on contrast CT); suspicious for metastatic disease; origin still in question as all biopsies (lung and thryoid) were inconclusive. Out-Pt SPEP relayed by PCP as "negative" for M spike: PLAN: will need to proceed with C-spine surgery in order to obtain a specimen. Cont pain control measures for now > Pleuritic chest pain--seems to have subsided > AbnL lung imaging--tissue submitted did not reveal any presence of neoplastic cells; but only necrotic tissue; thus cannot fully r/o malignancy. Quantiferon test appears to be negative > Tachycardia--resolved. > Htn--fluctuates at times; echo is relatively benign > Multi/nod thyroid--as per recent US; TSH okay; s/p thyroid Bx; results show atypia of unclear significance but mention is made of Hurthle cells; though no radiologic evidence of local mets or disrupted thyroid capsule is demonstrated. > Constipation--helped by laxatives > Hx of migraines--on anti-migr meds > hx of depression--on SSRI & TCA as per neuro ````````````````````````````````````````````````` family at bedside; discussed plan for Monday ~~~~~~~~~~~~~~~~~~~~~~~~~~~~~~~~~ Dr Paul Problem List - Problems (1) Neoplasm of cervical vertebra Code(s): D49.2 - NEOPLASM OF UNSP BEHAVIOR OF BONE, SOFT TISSUE, AND SKIN (2) Headache Code(s): R51 - HEADACHE Qualifiers: Headache type: unspecified Headache chronicity pattern: unspecified pattern Intractability: not intractable Qualified Code(s): R51 - Headache (3) Abnormal chest CT Code(s): R93.89 - ABNORMAL FINDINGS ON DX IMAGING OF OTH BODY STRUCTURES (4) Thyroid lesion Code(s): E07.89 - OTHER SPECIFIED DISORDERS OF THYROID (5) Hypertension Code(s): I10 - ESSENTIAL (PRIMARY) HYPERTENSION Qualifiers: Hypertension type: essential hypertension Qualified Code(s): I10 - Essential (primary) hypertension (6) Depression Code(s): F32.9 - MAJOR DEPRESSIVE DISORDER, SINGLE EPISODE, UNSPECIFIED Qualifiers: Depression Type: unspecified Qualified Code(s): F32.9 - Major depressive disorder, single episode, unspecified
[2019-02-02] MEDS: NORTRIPTYLINE HCL 25 MG CAPSULE PO SCH (21:27)
[2019-02-02] MEDS: VENLAFAXINE HCL 75 MG E.R. CAPSULES (FP) PO SCH (21:28)
[2019-02-02] MEDS: oxyCODONE HCL 5 MG TABLET PO PRN (21:33)
[2019-02-02] MEDS: SENNOSIDES 8.6MG TABLET (FP) PO SCH (21:38)
[2019-02-03] MEDS: DOCUSATE SODIUM 100 MG CAPSULE (FP) PO SCH ×3 (05:44→21:55)
[2019-02-03 07:49] LABS: HEMATOCRIT 35.2 % (32.4-45.2); HEMOGLOBIN 12.2 GM/dL (10.7-15.3); MCH 28.9 pg (25.7-33.7); MCHC 34.5 g/dl (32.0-36.0); MEAN CELL VOLUME 83.8 fl (80-96); MEAN PLT VOLUME 7.6 fl (7.5-11.1); PLATELET COUNT 248 K/MM3 (134-434); RDW 13.1 % (11.6-15.6); WHITE BLOOD COUNT 5.3 K/mm3 (4.0-10.0)
[2019-02-03 08:13] LABS: BLOOD UREA NITROGEN 13.3 mg/dL (7-18); CALCIUM 9.6 mg/dL (8.5-10.1); CREATININE 0.8 mg/dL (0.55-1.3); POTASSIUM 4.3 mmol/L (3.5-5.1)
[2019-02-03] MEDS: ALBUTEROL SO4 2.5/IPRATROPIUM 0.5 INH SOL 3 ML VIAL.NEB. NEB SCH ×2 (09:01→20:38)
[2019-02-03] MEDS: amLODIPine BESYLATE 5 MG TABLET (FP) PO SCH (10:46)
[2019-02-03] MEDS: POLYETHYLENE GLYCOL 3350 119 GM BTL PO SCH ×2 (10:46→21:55)
[2019-02-03] MEDS: LISINOPRIL 5 MG TABLET (FP) PO SCH (10:46)
[2019-02-03] MEDS: TOPIRAMATE 100 MG TABLET PO SCH ×2 (10:46→21:55)
--- NOTE | 2019-02-03 11:45 | PN ---
Progress Note (short form) - Note Progress Note: PULMONARY Denies shortness of breath or chest tightness. Vital Signs Period Temp Pulse Resp BP Sys/Cho Pulse Ox Last 24 Hr 97.2 F-98.2 F 73-82 18-20 104-131/65-86 99 Gen: NAD at rest Heart: RRR Lung: decreased breath sounds at the bases Abd: soft, nontender Ext: no edema CBC, BMP 02/03/19 06:45 02/03/19 06:45 Active Medications Acetaminophen (Tylenol Oral Solution -) 650 mg PO Q4H PRN PRN Reason: PAIN LEVEL 1-5 Last Admin: 02/02/19 21:32 Dose: 650 mg Albuterol/Ipratropium (Duoneb -) 1 amp NEB RBID [facility] Last Admin: 02/03/19 09:01 Dose: 1 amp Alprazolam (Xanax -) 0.25 mg PO Q8H PRN PRN Reason: ANXIETY Last Admin: 01/25/19 01:00 Dose: 0.25 mg Amlodipine Besylate (Norvasc -) 5 mg PO DAILY [facility] Last Admin: 02/03/19 10:46 Dose: 5 mg Chlorhexidine Gluconate (Hibiclens For Decolonization -) 1 applic TP [facility] Docusate Sodium (Colace -) 100 mg PO TID [facility] Last Admin: 02/03/19 05:44 Dose: 100 mg Lisinopril (Prinivil) 5 mg PO DAILY [facility] Last Admin: 02/03/19 10:46 Dose: 5 mg Magnesium Citrate (Citroma -) 300 ml PO PRN PRN PRN Reason: CONSTIPATION Nortriptyline HCl (Pamelor -) 50 mg PO [facility] Last Admin: 02/02/19 21:27 Dose: 50 mg Oxycodone HCl (Roxicodone -) 5 mg PO Q6H PRN PRN Reason: PAIN LEVEL 6-10 Last Admin: 02/02/19 21:33 Dose: 5 mg Polyethylene Glycol (Miralax (For Daily Use) -) 17 gm PO BID [facility] Last Admin: 02/03/19 10:46 Dose: 17 grams Senna (Senna -) 1 tab PO [facility] Last Admin: 02/02/19 21:38 Dose: 1 tab Sumatriptan Succinate (Imitrex -) 50 mg PO PRN PRN PRN Reason: HEADACHE Last Admin: 02/01/19 06:10 Dose: 50 mg Topiramate (Topamax -) 100 mg PO BID [facility] Last Admin: 02/03/19 10:46 Dose: 100 mg Venlafaxine HCl (Effexor Xr -) 150 mg PO HS [facility] Last Admin: 02/02/19 21:28 Dose: 150 mg A/P Metastatic Disease r/o Lung Ca HTN - inhaled bronchodilators - incentive spirometry - for OR tomorrow - pain control - DVT prophylaxis
--- NOTE | 2019-02-03 14:14 | PN ---
Progress Note (short form) - Note Progress Note: Coverage Dr. Larson Pt seen/ examined chart reviewed. Case was discussed with pts pmd Comfortable sitting in chair denies pain. Denies shortness of breath or chest pain Vital Signs Period Temp Pulse Resp BP Sys/Cho Pulse Ox Last 24 Hr 97.2 F-98.2 F 73-82 18-20 104-131/65-86 99 Physical Exam Gen: awake/ comfortable Neck- collar + Heart: RRR Lung: decreased breath sounds at the bases Abd: soft, non tender. BS+ Ext: no edema. Neuro - Alert/ Awake Active Medications Acetaminophen (Tylenol Oral Solution -) 650 mg PO Q4H PRN PRN Reason: PAIN LEVEL 1-5 Last Admin: 02/02/19 21:32 Dose: 650 mg Albuterol/Ipratropium (Duoneb -) 1 amp NEB RBID [facility] Last Admin: 02/03/19 09:01 Dose: 1 amp Alprazolam (Xanax -) 0.25 mg PO Q8H PRN PRN Reason: ANXIETY Last Admin: 01/25/19 01:00 Dose: 0.25 mg Amlodipine Besylate (Norvasc -) 5 mg PO DAILY [facility] Last Admin: 02/03/19 10:46 Dose: 5 mg Chlorhexidine Gluconate (Hibiclens For Decolonization -) 1 applic TP [facility] Docusate Sodium (Colace -) 100 mg PO TID [facility] Last Admin: 02/03/19 05:44 Dose: 100 mg Lisinopril (Prinivil) 5 mg PO DAILY [facility] Last Admin: 02/03/19 10:46 Dose: 5 mg Magnesium Citrate (Citroma -) 300 ml PO PRN PRN PRN Reason: CONSTIPATION Nortriptyline HCl (Pamelor -) 50 mg PO [facility] Last Admin: 02/02/19 21:27 Dose: 50 mg Oxycodone HCl (Roxicodone -) 5 mg PO Q6H PRN PRN Reason: PAIN LEVEL 6-10 Last Admin: 02/02/19 21:33 Dose: 5 mg Polyethylene Glycol (Miralax (For Daily Use) -) 17 gm PO BID [facility] Last Admin: 02/03/19 10:46 Dose: 17 grams Senna (Senna -) 1 tab PO 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 Continue present care DR. Paul will assume care tomorrow. Dr. Barrios.
[2019-02-03] MEDS ORDERED: PT OWN MED DRAWER 7, Y5N ONE ×2 (21:27→22:17)
[2019-02-03] MEDS: NORTRIPTYLINE HCL 25 MG CAPSULE PO SCH (21:55)
[2019-02-03] MEDS: SENNOSIDES 8.6MG TABLET (FP) PO SCH (21:55)
[2019-02-03] MEDS: VENLAFAXINE HCL 75 MG E.R. CAPSULES (FP) PO SCH (21:55)
[2019-02-03] MEDS: oxyCODONE HCL 5 MG TABLET PO PRN (21:56)
[2019-02-03] MEDS ORDERED: CHLORHEXIDINE GLUCONATE 4% CLEANSER FOR DECOLONIZATION TP SCH (22:00)
[2019-02-04] MEDS: ACETAMINOPHEN 650 MG/20.3 ML ORAL SOLUTION (CUPS) PO PRN (01:02)
[2019-02-04] MEDS: oxyCODONE HCL 5 MG TABLET PO PRN (05:47)
[2019-02-04] MEDS: DOCUSATE SODIUM 100 MG CAPSULE (FP) PO SCH ×3 (05:47→22:37)
[2019-02-04] MEDS ORDERED: MIDAZOLAM HCL 2 MG/2 ML SINGLE DOSE VIAL ONE (07:21)
[2019-02-04] MEDS ORDERED: ROCURONIUM BROMIDE 50 MG/5 ML SYRINGE ONE ×2 (07:21→10:07)
[2019-02-04] MEDS ORDERED: PROPOFOL 20 ML ONE (07:21)
[2019-02-04] MEDS ORDERED: fentaNYL CITRATE 250 MCG/5 ML VIAL ONE ×2 (07:21→09:17)
[2019-02-04] MEDS: ALBUTEROL SO4 2.5/IPRATROPIUM 0.5 INH SOL 3 ML VIAL.NEB. NEB SCH ×2 (07:35→20:26)
[2019-02-04] MEDS ORDERED: THROMBIN (BOVINE) 20,000 UNIT VIAL TP ONE ×2 (07:40→08:10)
[2019-02-04] MEDS ORDERED: GENTAMICIN SO4 80 MG/2 ML VIAL ONE ×2 (07:40→08:28)
[2019-02-04] MEDS ORDERED: BUPIVACAINE HCL/PF 0.5% (5MG/ML) 10 ML VIAL ONE ×2 (07:40→07:41)
[2019-02-04] MEDS ORDERED: LIDOCAINE 1%-EPI 1:100,000 30 ML MDV IJ ONE (07:58)
[2019-02-04 08:22] LABS: INR 1.07 (0.83-1.09); PROTHROMBIN TIME (PATIENT) 12.6 SEC (9.7-13.0)
[2019-02-04 08:25] LABS: ACTIVATED PTT 37.3 SECONDS (25.2-36.5)
[2019-02-04] MEDS ORDERED: ceFAZolin SODIUM 1 GM VIAL IVPB ONE (09:05)
[2019-02-04] MEDS ORDERED: VANCOMYCIN 1,000 MG VIAL (RESTRICTED TO ID ONLY) IVPB ONE (09:15)
[2019-02-04] MEDS ORDERED: HYDROmorphone HCl 2 MG/ML VIAL ONE (09:17)
[2019-02-04] MEDS ORDERED: LIDO 2%/EPI 1:200000 PRESRVFRE (20 ML SDVIAL) PNB ONE (09:20)
[2019-02-04] MEDS ORDERED: DEXAMETHASONE SOD PHOSPHATE 4 MG/1 ML VIAL ONE (09:32)
[2019-02-04] MEDS ORDERED: ceFAZolin SODIUM 1 GM VIAL ONE ×2 (09:32→17:43)
[2019-02-04] MEDS ORDERED: VANCOMYCIN 1,000 MG VIAL (RESTRICTED TO ID ONLY) ONE (09:32)
[2019-02-04] MEDS ORDERED: KETOROLAC TROMETHAMINE 30 MG/1 ML VIAL ONE (09:32)
[2019-02-04] MEDS ORDERED: GLYCOPYRROLATE 0.2 MG/1 ML VIAL ONE ×2 (09:41→10:43)
[2019-02-04] MEDS ORDERED: NEOSTIGMINE METHYLSULFATE 0.5 MG/ML - 10 ML MDV ONE (09:42)
[2019-02-04] MEDS ORDERED: GELATIN, ABSORBABLE 12-7MM EACH SPONGE TP ONE (10:09)
[2019-02-04] MEDS ORDERED: HYDROGEN PEROXIDE 473 ML PO ONE (10:10)
[2019-02-04] MEDS ORDERED: GENTAMICIN 80MG PREMIX BAG IVPB ONE (10:11)
[2019-02-04] MEDS ORDERED: BACITRACIN 50,000 UNITS VIAL NR ONE (10:11)
[2019-02-04] MEDS ORDERED: THROMBIN (BOVINE) 5,000 UNIT VIAL TP ONE (10:12)
[2019-02-04] MEDS ORDERED: ONDANSETRON 4 MG/2 ML VIAL IVPUSH PRN ×2 (11:19→11:36)
[2019-02-04] MEDS ORDERED: PROMETHAZINE HCL 25 MG/1 ML VIAL IVPUSH PRN ×2 (11:19→11:36)
[2019-02-04] MEDS ORDERED: ACETAMINOPHEN 1000 MG/100 ML VIAL (NON FORMULARY) IVPB ONE ×2 (11:20→11:36)
[2019-02-04] MEDS ORDERED: KETOROLAC TROMETHAMINE 30 MG/1 ML VIAL IVPUSH ONE (11:21)
[2019-02-04] MEDS ORDERED: HYDROmorphone HCL CARPU-JECT 2 MG/1 ML DISP.SYRIN IVPUSH PRN (11:21)
[2019-02-04] MEDS ORDERED: RANITIDINE HCL 50 MG/2 ML VIAL ONE (11:23)
[2019-02-04] MEDS: RANITIDINE HCL 50 MG/2 ML VIAL IVPUSH ONE ×2 (11:25→14:29)
[2019-02-04] MEDS ORDERED: LACTATED RINGERS SOLUTION 1,000 ML IV SCH (11:30)
[2019-02-04] MEDS ORDERED: diphenhydrAMINE HCL 25 MG CAPSULE (FP) PO PRN (11:33)
[2019-02-04] MEDS ORDERED: morphine CARPU-JECT 4 MG/1 ML DISP.SYRIN IVPUSH PRN (11:33)
[2019-02-04] MEDS ORDERED: oxyCODONE HCL 5 MG TABLET PO PRN ×2 (11:33→11:36)
[2019-02-04] MEDS ORDERED: MAGNESIUM CITRATE 300 ML BOTTLE PO PRN (11:36)
[2019-02-04] MEDS ORDERED: SUMAtriptan SUCCINATE 50 MG TABLET PO PRN (11:36)
[2019-02-04] MEDS ORDERED: ACETAMINOPHEN 650 MG/20.3 ML ORAL SOLUTION (CUPS) PO PRN (11:36)
[2019-02-04] MEDS ORDERED: ALPRAZolam 0.25 MG TABLET PO PRN (11:36)
[2019-02-04] MEDS ORDERED: LACTATED RINGERS SOLUTION 1,000 ML/1,000 ML INFUS.BAG IV SCH (11:45)
--- NOTE | 2019-02-04 12:37 | OP ---
Operative Note - Note: Operative Date: 02/04/19 Pre-Operative Diagnosis: cervical metastasis, HNP Operation: C5 corpectomy with tumor debulking/decompression of spondylosis and reconstruction with Peek cage and anterior plating Post-Operative Diagnosis: Same as Pre-op Surgeon: Pancho Vickers Blueprint Reproducer: Patria Crook Anesthesiologist/BANKING REPRESENTATIVE: Cirilo Calderon Anesthesia: General, Local Specimens Removed: C5 vetebral body with tumor Estimated Blood Loss (mls): 50 Drains & Tubes with Location: TATIANA placed at right anterior neck Fluid Volume Replaced (mls): 1,500 Operative Report Dictated: Yes
[2019-02-04] MEDS: LACTATED RINGERS SOLUTION 1,000 ML IV SCH ×2 (14:29→17:52)
[2019-02-04] MEDS: HYDROmorphone HCl 2 MG/ML VIAL IVPUSH PRN (15:53)
[2019-02-04] MEDS: amLODIPine BESYLATE 5 MG TABLET (FP) PO SCH (17:20)
[2019-02-04] MEDS: LISINOPRIL 5 MG TABLET (FP) PO SCH (17:20)
[2019-02-04] MEDS: TOPIRAMATE 100 MG TABLET PO SCH ×2 (17:20→22:37)
[2019-02-04] MEDS: POLYETHYLENE GLYCOL 3350 119 GM BTL PO SCH ×2 (17:21→22:39)
--- NOTE | 2019-02-04 17:31 | PN ---
Progress Note (short form) - Note Progress Note: Current Medications Acetaminophen (Tylenol Oral Solution -) 650 mg PO Q6H PRN PRN Reason: PAIN OR FEVER Albuterol/Ipratropium (Duoneb -) 1 amp NEB RBID [facility] Amlodipine Besylate (Norvasc -) 5 mg PO DAILY [facility] Diphenhydramine HCl (Benadryl -) 25 mg PO Q6H PRN PRN Reason: FOR ITCHING Docusate Sodium (Colace -) 100 mg PO TID [facility] Last Admin: 02/04/19 14:31 Dose: Not Given Fentanyl (Sublimaze Injection -) 25 mcg IVPUSH [id number] PRN PRN Reason: PAIN-PACU ORDER X 4 DOSES ONLY Ferrous Sulfate (Feosol -) 325 mg PO DAILY [facility] Folic Acid (Folic Acid -) 1 mg PO DAILY [facility] Heparin Sodium (Porcine) (Heparin -) 5,000 unit SQ TID [facility] Hydromorphone HCl (Dilaudid Vial -) 1 mg IVPUSH Q4H PRN PRN Reason: brakthrough pain Last Admin: 02/04/19 15:53 Dose: 1 mg Lactated Ringer's (Lactated Ringers Solution) 1,000 mls @ 125 mls/hr IV ASDIR [facility] Last Admin: 02/04/19 14:29 Dose: Not Given Cefazolin Sodium 1 gm/ (Dextrose) 50 mls @ 100 mls/hr IVPB Q8H-IV [facility] Lisinopril (Prinivil) 5 mg PO DAILY [facility] Nortriptyline HCl (Pamelor -) 50 mg PO HS [facility] Ondansetron HCl (Zofran Injection) 4 mg IVPUSH Q6H PRN PRN Reason: NAUSEA Oxycodone HCl (Roxicodone -) 5 mg PO Q4H PRN PRN Reason: PAIN LEVEL 1-5 Oxycodone HCl (Roxicodone -) 10 mg PO Q4H PRN PRN Reason: PAIN LEVEL 6-10 Pantoprazole Sodium (Protonix Iv) 20 mg IVPB DAILY [facility] Polyethylene Glycol (Miralax (For Daily Use) -) 17 gm PO BID [facility] Promethazine HCl (Phenergan Injection -) 12.5 mg IVPUSH Q6H PRN PRN Reason: NAUSEA-FOR RESCUE AFTER 15 MIN Senna (Senna -) 1 tab PO HS [facility] Sumatriptan Succinate (Imitrex -) 50 mg PO PRN PRN PRN Reason: HEADACHE Topiramate (Topamax -) 100 mg PO BID [facility] Venlafaxine HCl (Effexor Xr -) 150 mg PO HS [facility] Laboratory Results - last 24 hr 02/04/19 02/04/19 06:09 07:35 PT with INR 12.60 INR 1.07 PTT (Actin FS) 37.3 H Blood Type O NEGATIVE Antibody Screen Negative Vital Signs Temperature 98 F 02/04/19 15:33 Pulse Rate 89 02/04/19 15:33 Respiratory Rate 18 02/04/19 15:33 Blood Pressure 145/86 02/04/19 15:33 O2 Sat by Pulse Oximetry (%) 98 02/04/19 13:33 CC; sleepy (post op) ```````````````````````````````````````` skin--NL color eyes--midline neck--stiff collar; TATIANA drain in place heart--RR lungs--grossly clear, unlabored neuro--drowsy but rousable; good eye contact; able to move limbs on command; no gross deficits ````````````````````````````` Summ > Bone neoplasm--multi-levels at C-spine as 1st shown by out-patient MRI; suspicious for metastatic disease; origin still in question as all biopsies ( lung and thryoid) were inconclusive. Out-Pt SPEP relayed by PCP as "negative" for M spike: Is now s/p C-spine surgery as described:PLAN: Cont pain control measures for now; mgm as per N/S > Htn--fluctuates at times; echo is relatively benign: Plan: cont dual BP meds with parameters > Multi/nod thyroid--as per recent US; TSH okay; s/p thyroid Bx; results show atypia of unclear significance: PLAN: thyroid Abs pending. > Constipation--helped by laxatives > Hx of migraines--on anti-migr meds > hx of depression--on SSRI & TCA as per neuro ````````````````````````````````````````````````` Other: spoke w/ at bedside ~~~~~~~~~~~~~~~~~~~~~~~~~ dr Paul Problem List - Problems (1) Neoplasm of cervical vertebra Code(s): D49.2 - NEOPLASM OF UNSP BEHAVIOR OF BONE, SOFT TISSUE, AND SKIN (2) Headache Code(s): R51 - HEADACHE Qualifiers: Headache type: unspecified Headache chronicity pattern: unspecified pattern Intractability: not intractable Qualified Code(s): R51 - Headache (3) Abnormal chest CT Code(s): R93.89 - ABNORMAL FINDINGS ON DX IMAGING OF OTH BODY STRUCTURES (4) Thyroid lesion Code(s): E07.89 - OTHER SPECIFIED DISORDERS OF THYROID (5) Hypertension Code(s): I10 - ESSENTIAL (PRIMARY) HYPERTENSION Qualifiers: Hypertension type: essential hypertension Qualified Code(s): I10 - Essential (primary) hypertension (6) Depression Code(s): F32.9 - MAJOR DEPRESSIVE DISORDER, SINGLE EPISODE, UNSPECIFIED Qualifiers: Depression Type: unspecified Qualified Code(s): F32.9 - Major depressive disorder, single episode, unspecified
[2019-02-04] MEDS ORDERED: DEXTROSE 5%-WATER - 50 ML IVPB ONE (17:43)
[2019-02-04] MEDS: CEFAZOLIN 1 GM in DEXTROSE 5%-WATER - 50 ML IVPB SCH (17:52)
[2019-02-04] MEDS ORDERED: PT OWN MED DRAWER 7, Y5N ONE (20:56)
[2019-02-04] MEDS ORDERED: CHLORHEXIDINE GLUCONATE 4% CLEANSER FOR DECOLONIZATION TP SCH (22:00)
--- NOTE | 2019-02-04 22:23 | PN ---
Progress Note (short form) - Note Progress Note: Patient seen and examined s/p C5 corpectomy with tumor debulking/decompression of spondylosis and reconstruction with Peek cage and anterior plating awake,a lert, having dinner Vital Signs Temperature 98.4 F 02/05/19 02:33 Pulse Rate 89 02/05/19 02:33 Respiratory Rate 18 02/05/19 02:33 Blood Pressure 145/75 02/05/19 02:33 O2 Sat by Pulse Oximetry (%) 98 02/04/19 21:00 Cor: RSR, No murmurs, No gallops Lungs: Clear to P&A Abd: Soft, Normal bowel sounds, No organomegaly Ext:No significant edema Labs/Meds reviewed a/p 53 y/o patient with presumed metastatic bone lesions on imaging s/p C5 corpectomy with tumor debulking/decompression of spondylosis and reconstruction with Peek cage and anterior plating Lung biopsy --inflammation/necrotic 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 follow bone biopsy results will follow
[2019-02-04] MEDS: HEPARIN NA (PORCINE) 5,000 UNITS/ML 1ML VIAL SQ SCH (22:36)
[2019-02-04] MEDS: SENNOSIDES 8.6MG TABLET (FP) PO SCH (22:37)
[2019-02-04] MEDS: VENLAFAXINE HCL 75 MG E.R. CAPSULES (FP) PO SCH (22:37)
[2019-02-04] MEDS: NORTRIPTYLINE HCL 25 MG CAPSULE PO SCH (22:38)
[2019-02-05] MEDS ORDERED: DEXTROSE 5%-WATER - 50 ML IVPB ONE ×4 (01:16→23:16)
[2019-02-05] MEDS ORDERED: ceFAZolin SODIUM 1 GM VIAL ONE ×4 (01:16→23:15)
[2019-02-05] MEDS: CEFAZOLIN 1 GM in DEXTROSE 5%-WATER - 50 ML IVPB SCH ×3 (01:23→17:01)
[2019-02-05] MEDS: ONDANSETRON 4 MG/2 ML VIAL IVPUSH PRN ×3 (01:57→22:01)
[2019-02-05] MEDS: HEPARIN NA (PORCINE) 5,000 UNITS/ML 1ML VIAL SQ SCH ×3 (05:52→22:48)
[2019-02-05] MEDS: DOCUSATE SODIUM 100 MG CAPSULE (FP) PO SCH ×3 (05:52→22:50)
[2019-02-05 06:22] LABS: HEMATOCRIT 32.4 % (32.4-45.2); HEMOGLOBIN 11.4 GM/dL (10.7-15.3); MCH 28.9 pg (25.7-33.7); MCHC 35.2 g/dl (32.0-36.0); MEAN CELL VOLUME 82.3 fl (80-96); MEAN PLT VOLUME 7.4 fl (7.5-11.1); PLATELET COUNT 239 K/MM3 (134-434); RBC 3.94 M/mm3 (3.60-5.2); RDW 12.8 % (11.6-15.6); WHITE BLOOD COUNT 7.6 K/mm3 (4.0-10.0)
[2019-02-05 06:48] LABS: BLOOD UREA NITROGEN 10.2 mg/dL (7-18); CALCIUM 8.7 mg/dL (8.5-10.1); CREATININE 0.5 mg/dL (0.55-1.3); POTASSIUM 3.5 mmol/L (3.5-5.1)
[2019-02-05] MEDS ORDERED: PT OWN MED DRAWER 7, Y5N ONE ×2 (07:59→21:00)
[2019-02-05] MEDS: ALBUTEROL SO4 2.5/IPRATROPIUM 0.5 INH SOL 3 ML VIAL.NEB. NEB SCH ×2 (08:15→20:15)
--- NOTE | 2019-02-05 09:48 | PN ---
Progress Note (short form) - Note Progress Note: Some post-op discomfort. Hard collar intact. Denies shortness of breath or chest tightness. Intake & Output 02/02/19 02/03/19 02/04/19 02/05/19 23:59 23:59 23:59 23:59 Intake Total 487 907 4761 Output Total 1575 1060 Balance 400 650 925 -1060 Last Vital Signs Temp Pulse Resp BP Pulse Ox 98 F 95 H 18 131/85 98 02/05/19 06:36 02/05/19 06:36 02/05/19 06:36 02/05/19 06:36 02/04/19 21:00 Active Medications Acetaminophen (Tylenol Oral Solution -) 650 mg PO Q6H PRN PRN Reason: PAIN OR FEVER Albuterol/Ipratropium (Duoneb -) 1 amp NEB RBID [facility] Last Admin: 02/05/19 08:15 Dose: 1 amp Amlodipine Besylate (Norvasc -) 5 mg PO DAILY [facility] Diphenhydramine HCl (Benadryl -) 25 mg PO Q6H PRN PRN Reason: FOR ITCHING Docusate Sodium (Colace -) 100 mg PO TID [facility] Last Admin: 02/05/19 05:52 Dose: 100 mg Fentanyl (Sublimaze Injection -) 25 mcg IVPUSH [id number] PRN PRN Reason: PAIN-PACU ORDER X 4 DOSES ONLY Ferrous Sulfate (Feosol -) 325 mg PO DAILY [facility] Folic Acid (Folic Acid -) 1 mg PO DAILY [facility] Heparin Sodium (Porcine) (Heparin -) 5,000 unit SQ TID [facility] Last Admin: 02/05/19 05:52 Dose: 5,000 unit Hydromorphone HCl (Dilaudid Vial -) 1 mg IVPUSH Q4H PRN PRN Reason: brakthrough pain Last Admin: 02/04/19 15:53 Dose: 1 mg Lactated Ringer's (Lactated Ringers Solution) 1,000 mls @ 125 mls/hr IV ASDIR [facility] Last Admin: 02/04/19 17:52 Dose: 125 mls/hr Cefazolin Sodium 1 gm/ (Dextrose) 50 mls @ 100 mls/hr IVPB Q8H-IV [facility] Last Admin: 02/05/19 01:23 Dose: 100 mls/hr Lisinopril (Prinivil) 5 mg PO DAILY [facility] Nortriptyline HCl (Pamelor -) 50 mg PO [facility] Last Admin: 02/04/19 22:38 Dose: 50 mg Ondansetron HCl (Zofran Injection) 4 mg IVPUSH Q6H PRN PRN Reason: NAUSEA Last Admin: 02/05/19 01:57 Dose: 4 mg Oxycodone HCl (Roxicodone -) 5 mg PO Q4H PRN PRN Reason: PAIN LEVEL 1-5 Oxycodone HCl (Roxicodone -) 10 mg PO Q4H PRN PRN Reason: PAIN LEVEL 6-10 Pantoprazole Sodium (Protonix Iv) 20 mg IVPUSH DAILY [facility] Polyethylene Glycol (Miralax (For Daily Use) -) 17 gm PO BID [facility] Last Admin: 02/04/19 22:39 Dose: 17 gm Promethazine HCl (Phenergan Injection -) 12.5 mg IVPUSH Q6H PRN PRN Reason: NAUSEA-FOR RESCUE AFTER 15 MIN Senna (Senna -) 1 tab PO [facility] Last Admin: 02/04/19 22:37 Dose: 1 tab Sumatriptan Succinate (Imitrex -) 50 mg PO PRN PRN PRN Reason: HEADACHE Topiramate (Topamax -) 100 mg PO BID [facility] Last Admin: 02/04/19 22:37 Dose: 100 mg Venlafaxine HCl (Effexor Xr -) 150 mg PO [facility] Last Admin: 02/04/19 22:37 Dose: 150 mg Gen: NAD at rest Heart: RRR Lung: decreased breath sounds at the bases Abd: soft, nontender Ext: no edema Laboratory Results - last 24 hr 02/02/19 02/04/19 02/05/19 05:25 15:30 05:30 WBC 7.6 RBC 3.94 Hgb 11.4 Hct 32.4 MCV 82.3 MCH 28.9 MCHC 35.2 RDW 12.8 Plt Count 239 MPV 7.4 L Sodium Potassium Chloride Carbon Dioxide Anion Gap BUN Creatinine Est GFR (CKD-EPI)AfAm Est GFR (CKD-EPI)NonAf Random Glucose Calcium Thyroglobulin Antibody < 1.0 Thyroid Peroxidase Ab 12 Blood Type O NEGATIVE 02/05/19 05:30 WBC RBC Hgb Hct MCV MCH MCHC RDW Plt Count MPV Sodium 137 Potassium 3.5 Chloride 100 Carbon Dioxide 27 Anion Gap 10 BUN 10.2 Creatinine 0.5 L Est GFR (CKD-EPI)AfAm 128.97 Est GFR (CKD-EPI)NonAf 111.28 Random Glucose 108 H Calcium 8.7 Thyroglobulin Antibody Thyroid Peroxidase Ab Blood Type A/P Metastatic Disease r/o Lung Ca HTN - Check pathology - inhaled bronchodilators - incentive spirometry - pain control - DVT prophylaxis Dr Rees
[2019-02-05] MEDS: PANTOPRAZOLE SODIUM 40 MG VIAL IVPUSH SCH (10:03)
[2019-02-05] MEDS: FERROUS SO4 325 MG TABLET (FP) PO SCH (10:03)
[2019-02-05] MEDS: amLODIPine BESYLATE 5 MG TABLET (FP) PO SCH (10:04)
[2019-02-05] MEDS: FOLIC ACID 1 MG TABLET (FP) PO SCH (10:04)
[2019-02-05] MEDS: LISINOPRIL 5 MG TABLET (FP) PO SCH (10:04)
[2019-02-05] MEDS: TOPIRAMATE 100 MG TABLET PO SCH ×2 (10:04→22:50)
--- NOTE | 2019-02-05 10:39 | PN ---
Progress Note (short form) - Note Progress Note: POD #1 s/p C5 corpectomy with tumor debulking/decompression of spondylosis and reconstruction with Peek cage and anterior plating Alert. Resting comfortably with HOB at 30 degrees. Has Tama collar in place. Currently receiving a nubulizer treatment. C/o incisional tenderness. Adequate pain control via prn meds as ordered. Tolerating soft diet. Denies n/v/f/c, CP, SOB or MORENO. Last Vital Signs Temp Pulse Resp BP Pulse Ox 98 F 95 H 18 131/85 98 02/05/19 06:36 02/05/19 06:36 02/05/19 06:36 02/05/19 06:36 02/04/19 21:00 CBC, BMP 02/05/19 05:30 02/05/19 05:30 Gen: nad Neck: Collar in place. TATIANA 60 mL serosang. Soft. Supple. No evidence of hematoma or infection Problem List - Problems (1) Neoplasm of cervical vertebra Assessment/Plan: POD #1 s/p C5 corpectomy with tumor debulking/decompression of spondylosis and reconstruction with Peek cage and anterior plating TATIANA drain dc'd on morning rounds. Dermabond applied to close ostium as well as fresh coat applied to surgical incision. Cont to wear your cervical collar 23/24hrs (may remove while eating and or bathing) Pain management Cleared for discharge home today from neurosurgery Above plan discussed with my attending and agrees. On behalf of Dr. Vickers, thank you for the opportunity to participate in your patient's care. Code(s): D49.2 - NEOPLASM OF UNSP BEHAVIOR OF BONE, SOFT TISSUE, AND SKIN
--- NOTE | 2019-02-05 12:03 | PN ---
Progress Note (short form) - Note Progress Note: NEUROLOGY PROGRESS: Events reviewed and discussed. Neurosurgery and heme-onco consult read and appreciated. Now POD #1 s/p C5 corpectomy with tumor debulking/decompression of spondylosis and reconstruction with Peek cage and anterior plating. Lung biopsy revealed inflammation/necrotic changes, while Thyroid biopsy showed lymphocytic thyroiditis with atypia of follicle and Hurthle cells. Now in hard cervical collar. With Espinosa catherter. Ambulated with PT with walker down the avalos. On IV Ancef post-op. Complaining of difficult and painful swallowing. JI: Wearing hard cervical collar. Dressing to anterior neck. NEURO: Mentation/Speech: Sl hoarse. CNII-CNXII: Tongue appears somewhat swollen. Reduced rapid tongue, but strength normal- coughing with small sips H20 and applesauce. Motor: No drift. Strength normal in proximal and distal groups. Reflexes Normal. Coordination: No FTN dystaxia. Sensation: Normal to vibration. Impression: New post op dysphagia S/P C5 corpectomy Migraine Headaches Depression Suggest: Advise Speech and Swallow eval Continue incentive spirometry and PFTS Await bone marrow biopsy results Thank you very much, Hardeep Be MD
[2019-02-05] MEDS: HYDROmorphone HCl 2 MG/ML VIAL IVPUSH PRN (12:29)
[2019-02-05] MEDS: POLYETHYLENE GLYCOL 3350 119 GM BTL PO SCH ×2 (13:36→22:51)
[2019-02-05] MEDS: LACTATED RINGERS SOLUTION 1,000 ML IV SCH (13:41)
--- NOTE | 2019-02-05 15:16 | PN ---
Progress Note (short form) - Note Progress Note: Anesthesia POD#1 S/P C5 Corpectomy under GA VSS,nausea yesterday getting better now.Pain is bearable with intermittent doses of Dilaudid.No other complications seen. A/P As soon as patient can tolerate orals,po meds can be added including nonnarcotics. Pamella Miller MD.
--- NOTE | 2019-02-05 19:36 | PN ---
Progress Note (short form) - Note Progress Note: Current Medications Acetaminophen (Tylenol Oral Solution -) 650 mg PO Q6H PRN PRN Reason: PAIN OR FEVER Albuterol/Ipratropium (Duoneb -) 1 amp NEB RBID [facility] Last Admin: 02/05/19 08:15 Dose: 1 amp Amlodipine Besylate (Norvasc -) 5 mg PO DAILY [facility] Last Admin: 02/05/19 10:04 Dose: 5 mg Diphenhydramine HCl (Benadryl -) 25 mg PO Q6H PRN PRN Reason: FOR ITCHING Docusate Sodium (Colace -) 100 mg PO TID [facility] Last Admin: 02/05/19 13:41 Dose: Not Given Fentanyl (Sublimaze Injection -) 25 mcg IVPUSH [id number] PRN PRN Reason: PAIN-PACU ORDER X 4 DOSES ONLY Ferrous Sulfate (Feosol -) 325 mg PO DAILY [facility] Last Admin: 02/05/19 10:03 Dose: 325 mg Folic Acid (Folic Acid -) 1 mg PO DAILY [facility] Last Admin: 02/05/19 10:04 Dose: 1 mg Heparin Sodium (Porcine) (Heparin -) 5,000 unit SQ TID [facility] Last Admin: 02/05/19 13:34 Dose: 5,000 unit Hydromorphone HCl (Dilaudid Vial -) 1 mg IVPUSH Q4H PRN PRN Reason: brakthrough pain Last Admin: 02/05/19 12:29 Dose: 1 mg Lactated Ringer's (Lactated Ringers Solution) 1,000 mls @ 125 mls/hr IV ASDIR [facility] Last Admin: 02/05/19 13:41 Dose: Not Given Cefazolin Sodium 1 gm/ (Dextrose) 50 mls @ 100 mls/hr IVPB Q8H-IV [facility] Last Admin: 02/05/19 17:01 Dose: 100 mls/hr Lisinopril (Prinivil) 5 mg PO DAILY [facility] Last Admin: 02/05/19 10:04 Dose: 5 mg Nortriptyline HCl (Pamelor -) 50 mg PO HS [facility] Last Admin: 02/04/19 22:38 Dose: 50 mg Ondansetron HCl (Zofran Injection) 4 mg IVPUSH Q6H PRN PRN Reason: NAUSEA Last Admin: 02/05/19 16:58 Dose: 4 mg Oxycodone HCl (Roxicodone -) 5 mg PO Q4H PRN PRN Reason: PAIN LEVEL 1-5 Oxycodone HCl (Roxicodone -) 10 mg PO Q4H PRN PRN Reason: PAIN LEVEL 6-10 Pantoprazole Sodium (Protonix Iv) 20 mg IVPUSH DAILY [facility] Last Admin: 02/05/19 10:03 Dose: 20 mg Polyethylene Glycol (Miralax (For Daily Use) -) 17 gm PO BID [facility] Last Admin: 02/05/19 13:36 Dose: 17 gm Promethazine HCl (Phenergan Injection -) 12.5 mg IVPUSH Q6H PRN PRN Reason: NAUSEA-FOR RESCUE AFTER 15 MIN Senna (Senna -) 1 tab PO [facility] Last Admin: 02/04/19 22:37 Dose: 1 tab Sumatriptan Succinate (Imitrex -) 50 mg PO PRN PRN PRN Reason: HEADACHE Topiramate (Topamax -) 100 mg PO BID [facility] Last Admin: 02/05/19 10:04 Dose: 100 mg Venlafaxine HCl (Effexor Xr -) 150 mg PO [facility] Last Admin: 02/04/19 22:37 Dose: 150 mg Laboratory Results - last 24 hr 02/02/19 02/05/19 02/05/19 05:25 05:30 05:30 WBC 7.6 RBC 3.94 Hgb 11.4 Hct 32.4 MCV 82.3 MCH 28.9 MCHC 35.2 RDW 12.8 Plt Count 239 MPV 7.4 L Sodium 137 Potassium 3.5 Chloride 100 Carbon Dioxide 27 Anion Gap 10 BUN 10.2 Creatinine 0.5 L Est GFR (CKD-EPI)AfAm 128.97 Est GFR (CKD-EPI)NonAf 111.28 Random Glucose 108 H Calcium 8.7 Thyroglobulin Antibody < 1.0 Thyroid Peroxidase Ab 12 Vital Signs Temperature 97.9 F 02/05/19 15:00 Pulse Rate 84 02/05/19 15:00 Respiratory Rate 18 02/05/19 15:00 Blood Pressure 139/86 02/05/19 15:00 O2 Sat by Pulse Oximetry (%) 100 02/05/19 09:00 CC; collar related discomfort; some neck pain & pain on swallowing ```````````````````````````````````````` skin--NL color; IV site clean eyes--midline neck--stiff collar heart--RR lungs--grossly clear, unlabored neuro-- able to move limbs on command; no gross deficits ````````````````````````````` Summ > Bone neoplasm--multi-levels at C-spine as 1st shown by out-patient MRI; suspicious for metastatic disease; origin still in question as all biopsies ( lung and thryoid) were inconclusive. Out-Pt SPEP relayed by PCP as "negative" for M spike: Is now s/p C-spine surgery as described:PLAN: Cont pain control measures for now; await Bx report > Htn--fluctuates at times; echo is relatively benign: Plan: cont dual BP meds with parameters > Multi/nod thyroid--as per recent US; TSH okay; s/p thyroid Bx; results show atypia of unclear significance; Thyroid Abs are negative. > Constipation--helped by laxatives > Hx of migraines--on anti-migr meds > hx of depression--on SSRI & TCA as per neuro ````````````````````````````````````````````````` Dr Paul Problem List - Problems (1) Neoplasm of cervical vertebra Code(s): D49.2 - NEOPLASM OF UNSP BEHAVIOR OF BONE, SOFT TISSUE, AND SKIN (2) Headache Code(s): R51 - HEADACHE Qualifiers: Headache type: unspecified Headache chronicity pattern: unspecified pattern Intractability: not intractable Qualified Code(s): R51 - Headache (3) Abnormal chest CT Code(s): R93.89 - ABNORMAL FINDINGS ON DX IMAGING OF OTH BODY STRUCTURES (4) Thyroid lesion Code(s): E07.89 - OTHER SPECIFIED DISORDERS OF THYROID (5) Hypertension Code(s): I10 - ESSENTIAL (PRIMARY) HYPERTENSION Qualifiers: Hypertension type: essential hypertension Qualified Code(s): I10 - Essential (primary) hypertension (6) Depression Code(s): F32.9 - MAJOR DEPRESSIVE DISORDER, SINGLE EPISODE, UNSPECIFIED Qualifiers: Depression Type: unspecified Qualified Code(s): F32.9 - Major depressive disorder, single episode, unspecified
[2019-02-05] MEDS: ACETAMINOPHEN 650 MG/20.3 ML ORAL SOLUTION (CUPS) PO PRN (20:12)
[2019-02-05] MEDS: SENNOSIDES 8.6MG TABLET (FP) PO SCH (22:50)
[2019-02-05] MEDS: VENLAFAXINE HCL 75 MG E.R. CAPSULES (FP) PO SCH (22:50)
[2019-02-05] MEDS: NORTRIPTYLINE HCL 25 MG CAPSULE PO SCH (22:51)
[2019-02-06] MEDS: HYDROmorphone HCl 2 MG/ML VIAL IVPUSH PRN ×3 (00:27→14:10)
[2019-02-06] MEDS: CEFAZOLIN 1 GM in DEXTROSE 5%-WATER - 50 ML IVPB SCH ×3 (01:11→18:19)
[2019-02-06] MEDS ORDERED: PT OWN MED DRAWER 7, Y5N ONE ×2 (05:43→21:08)
[2019-02-06] MEDS: DOCUSATE SODIUM 100 MG CAPSULE (FP) PO SCH ×3 (06:03→22:59)
[2019-02-06] MEDS: HEPARIN NA (PORCINE) 5,000 UNITS/ML 1ML VIAL SQ SCH ×3 (06:04→21:59)
[2019-02-06 08:36] LABS: BLOOD UREA NITROGEN 9.9 mg/dL (7-18); CALCIUM 9.2 mg/dL (8.5-10.1); CREATININE 0.5 mg/dL (0.55-1.3); POTASSIUM 3.4 mmol/L (3.5-5.1)
--- NOTE | 2019-02-06 08:45 | PN ---
Progress Note (short form) - Note Progress Note: Feels a little better today. Hard collar intact. Denies shortness of breath or chest tightness. Doing much better with IS. Intake & Output 02/03/19 02/04/19 02/05/19 02/06/19 23:59 23:59 23:59 23:59 Intake Total 650 2500 2125 1150 Output Total 1575 2660 Balance 650 925 -535 1150 Last Vital Signs Temp Pulse Resp BP Pulse Ox 98.3 F 82 20 141/87 100 02/06/19 06:07 02/06/19 06:07 02/06/19 06:07 02/06/19 06:07 02/06/19 01:00 Active Medications Acetaminophen (Tylenol Oral Solution -) 650 mg PO Q6H PRN PRN Reason: PAIN OR FEVER Last Admin: 02/05/19 20:12 Dose: 650 mg Albuterol/Ipratropium (Duoneb -) 1 amp NEB RBID [facility] Last Admin: 02/05/19 20:15 Dose: 1 amp Amlodipine Besylate (Norvasc -) 5 mg PO DAILY [facility] Last Admin: 02/05/19 10:04 Dose: 5 mg Diphenhydramine HCl (Benadryl -) 25 mg PO Q6H PRN PRN Reason: FOR ITCHING Docusate Sodium (Colace -) 100 mg PO TID [facility] Last Admin: 02/06/19 06:03 Dose: Not Given Fentanyl (Sublimaze Injection -) 25 mcg IVPUSH [id number] PRN PRN Reason: PAIN-PACU ORDER X 4 DOSES ONLY Ferrous Sulfate (Feosol -) 325 mg PO DAILY [facility] Last Admin: 02/05/19 10:03 Dose: 325 mg Folic Acid (Folic Acid -) 1 mg PO DAILY [facility] Last Admin: 02/05/19 10:04 Dose: 1 mg Heparin Sodium (Porcine) (Heparin -) 5,000 unit SQ TID [facility] Last Admin: 02/06/19 06:04 Dose: 5,000 unit Hydromorphone HCl (Dilaudid Vial -) 1 mg IVPUSH Q4H PRN PRN Reason: brakthrough pain Last Admin: 02/06/19 06:29 Dose: 1 mg Lactated Ringer's (Lactated Ringers Solution) 1,000 mls @ 125 mls/hr IV ASDIR [facility] Last Admin: 02/05/19 13:41 Dose: Not Given Cefazolin Sodium 1 gm/ (Dextrose) 50 mls @ 100 mls/hr IVPB Q8H-IV [facility] Last Admin: 02/06/19 01:11 Dose: 100 mls/hr Lisinopril (Prinivil) 5 mg PO DAILY [facility] Last Admin: 02/05/19 10:04 Dose: 5 mg Nortriptyline HCl (Pamelor -) 50 mg PO [facility] Last Admin: 02/05/19 22:51 Dose: 50 mg Ondansetron HCl (Zofran Injection) 4 mg IVPUSH Q6H PRN PRN Reason: NAUSEA Last Admin: 02/05/19 22:01 Dose: 4 mg Oxycodone HCl (Roxicodone -) 5 mg PO Q4H PRN PRN Reason: PAIN LEVEL 1-5 Oxycodone HCl (Roxicodone -) 10 mg PO Q4H PRN PRN Reason: PAIN LEVEL 6-10 Pantoprazole Sodium (Protonix Iv) 20 mg IVPUSH DAILY [facility] Last Admin: 02/05/19 10:03 Dose: 20 mg Polyethylene Glycol (Miralax (For Daily Use) -) 17 gm PO BID [facility] Last Admin: 02/05/19 22:51 Dose: 17 gm Promethazine HCl (Phenergan Injection -) 12.5 mg IVPUSH Q6H PRN PRN Reason: NAUSEA-FOR RESCUE AFTER 15 MIN Senna (Senna -) 1 tab PO [facility] Last Admin: 02/05/19 22:50 Dose: 1 tab Sumatriptan Succinate (Imitrex -) 50 mg PO PRN PRN PRN Reason: HEADACHE Topiramate (Topamax -) 100 mg PO BID [facility] Last Admin: 02/05/19 22:50 Dose: 100 mg Venlafaxine HCl (Effexor Xr -) 150 mg PO [facility] Last Admin: 02/05/19 22:50 Dose: 150 mg Gen: NAD at rest Heart: RRR Lung: decreased breath sounds at the bases Abd: soft, nontender Ext: no edema Laboratory Results - last 24 hr 02/06/19 07:00 Sodium 138 Potassium 3.4 L Chloride 98 Carbon Dioxide 31 Anion Gap 9 BUN 9.9 Creatinine 0.5 L Est GFR (CKD-EPI)AfAm 128.97 Est GFR (CKD-EPI)NonAf 111.28 Random Glucose 105 Calcium 9.2 A/P Metastatic Disease r/o Lung Ca HTN - Check pathology - inhaled bronchodilators - incentive spirometry - pain control - DVT prophylaxis Dr Rees
[2019-02-06] MEDS: ALBUTEROL SO4 2.5/IPRATROPIUM 0.5 INH SOL 3 ML VIAL.NEB. NEB SCH ×2 (08:53→20:25)
[2019-02-06] MEDS ORDERED: ceFAZolin SODIUM 1 GM VIAL ONE ×2 (09:37→18:06)
[2019-02-06] MEDS ORDERED: DEXTROSE 5%-WATER - 50 ML IVPB ONE ×2 (09:38→18:07)
[2019-02-06] MEDS: PANTOPRAZOLE SODIUM 40 MG VIAL IVPUSH SCH (09:54)
[2019-02-06] MEDS: amLODIPine BESYLATE 5 MG TABLET (FP) PO SCH (09:55)
[2019-02-06] MEDS: FERROUS SO4 325 MG TABLET (FP) PO SCH (09:55)
[2019-02-06] MEDS: LISINOPRIL 5 MG TABLET (FP) PO SCH (09:55)
[2019-02-06] MEDS: FOLIC ACID 1 MG TABLET (FP) PO SCH (09:55)
[2019-02-06] MEDS: TOPIRAMATE 100 MG TABLET PO SCH ×2 (09:55→21:59)
[2019-02-06] MEDS: POLYETHYLENE GLYCOL 3350 119 GM BTL PO SCH ×2 (11:44→22:59)
[2019-02-06] MEDS: LACTATED RINGERS SOLUTION 1,000 ML IV SCH (11:44)
[2019-02-06] MEDS ORDERED: POTASSIUM CHLORIDE TABS 10 MEQ TABLET.ER (FP) PO ONE (15:58)
--- NOTE | 2019-02-06 15:58 | PN ---
Progress Note (short form) - Note Progress Note: Current Medications Acetaminophen (Tylenol Oral Solution -) 650 mg PO Q6H PRN PRN Reason: PAIN OR FEVER Last Admin: 02/05/19 20:12 Dose: 650 mg Albuterol/Ipratropium (Duoneb -) 1 amp NEB RBID [facility] Last Admin: 02/06/19 08:53 Dose: 1 amp Amlodipine Besylate (Norvasc -) 5 mg PO DAILY [facility] Last Admin: 02/06/19 09:55 Dose: 5 mg Diphenhydramine HCl (Benadryl -) 25 mg PO Q6H PRN PRN Reason: FOR ITCHING Docusate Sodium (Colace -) 100 mg PO TID [facility] Last Admin: 02/06/19 14:11 Dose: Not Given Fentanyl (Sublimaze Injection -) 25 mcg IVPUSH [id number] PRN PRN Reason: PAIN-PACU ORDER X 4 DOSES ONLY Ferrous Sulfate (Feosol -) 325 mg PO DAILY [facility] Last Admin: 02/06/19 09:55 Dose: 325 mg Folic Acid (Folic Acid -) 1 mg PO DAILY [facility] Last Admin: 02/06/19 09:55 Dose: 1 mg Heparin Sodium (Porcine) (Heparin -) 5,000 unit SQ TID [facility] Last Admin: 02/06/19 14:09 Dose: 5,000 unit Hydromorphone HCl (Dilaudid Vial -) 1 mg IVPUSH Q4H PRN PRN Reason: brakthrough pain Last Admin: 02/06/19 14:10 Dose: 1 mg Lactated Ringer's (Lactated Ringers Solution) 1,000 mls @ 125 mls/hr IV ASDIR [facility] Last Admin: 02/06/19 11:44 Dose: Not Given Cefazolin Sodium 1 gm/ (Dextrose) 50 mls @ 100 mls/hr IVPB Q8H-IV [facility] Last Admin: 02/06/19 09:56 Dose: 100 mls/hr Lisinopril (Prinivil) 5 mg PO DAILY [facility] Last Admin: 02/06/19 09:55 Dose: 5 mg Nortriptyline HCl (Pamelor -) 50 mg PO HS [facility] Last Admin: 02/05/19 22:51 Dose: 50 mg Ondansetron HCl (Zofran Injection) 4 mg IVPUSH Q6H PRN PRN Reason: NAUSEA Last Admin: 02/05/19 22:01 Dose: 4 mg Oxycodone HCl (Roxicodone -) 5 mg PO Q4H PRN PRN Reason: PAIN LEVEL 1-5 Oxycodone HCl (Roxicodone -) 10 mg PO Q4H PRN PRN Reason: PAIN LEVEL 6-10 Pantoprazole Sodium (Protonix Iv) 20 mg IVPUSH DAILY [facility] Last Admin: 02/06/19 09:54 Dose: 20 mg Polyethylene Glycol (Miralax (For Daily Use) -) 17 gm PO BID [facility] Last Admin: 02/06/19 11:44 Dose: 17 gm Promethazine HCl (Phenergan Injection -) 12.5 mg IVPUSH Q6H PRN PRN Reason: NAUSEA-FOR RESCUE AFTER 15 MIN Senna (Senna -) 1 tab PO [facility] Last Admin: 02/05/19 22:50 Dose: 1 tab Sumatriptan Succinate (Imitrex -) 50 mg PO PRN PRN PRN Reason: HEADACHE Topiramate (Topamax -) 100 mg PO BID [facility] Last Admin: 02/06/19 09:55 Dose: 100 mg Venlafaxine HCl (Effexor Xr -) 150 mg PO [facility] Last Admin: 02/05/19 22:50 Dose: 150 mg Laboratory Results - last 24 hr 02/06/19 07:00 Sodium 138 Potassium 3.4 L Chloride 98 Carbon Dioxide 31 Anion Gap 9 BUN 9.9 Creatinine 0.5 L Est GFR (CKD-EPI)AfAm 128.97 Est GFR (CKD-EPI)NonAf 111.28 Random Glucose 105 Calcium 9.2 Vital Signs Temperature 98.1 F 02/06/19 14:00 Pulse Rate 90 02/06/19 14:00 Respiratory Rate 20 02/06/19 14:00 Blood Pressure 121/82 02/06/19 14:00 O2 Sat by Pulse Oximetry (%) 100 02/06/19 01:00 CC; somewhat better ```````````````````````````````````````` skin--NL color; IV site clean eyes--midline neck--with anterior dressing; not saturated heart--RR lungs--grossly clear, unlabored neuro-- able to move limbs on command; no gross deficits ````````````````````````````` Summ > 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 PLAN: Await final decision by Pathology; Cont pain control measures for now; will hope to d/c in Am, and will continue the process as OP > Htn--fluctuates at times; echo is relatively benign: Plan: cont dual BP meds with parameters > Multi/nod thyroid--thyroid Bx; results show atypia of unclear significance; Thyroid Abs are negative. > Constipation--helped by laxatives > Hx of migraines--on anti-migr meds > hx of depression--on SSRI & TCA as per neuro ````````````````````````````````````````````````` Dr Paul Problem List - Problems (1) Neoplasm of cervical vertebra Code(s): D49.2 - NEOPLASM OF UNSP BEHAVIOR OF BONE, SOFT TISSUE, AND SKIN (2) Headache Code(s): R51 - HEADACHE Qualifiers: Headache type: unspecified Headache chronicity pattern: unspecified pattern Intractability: not intractable Qualified Code(s): R51 - Headache (3) Abnormal chest CT Code(s): R93.89 - ABNORMAL FINDINGS ON DX IMAGING OF OTH BODY STRUCTURES (4) Thyroid lesion Code(s): E07.89 - OTHER SPECIFIED DISORDERS OF THYROID (5) Hypertension Code(s): I10 - ESSENTIAL (PRIMARY) HYPERTENSION Qualifiers: Hypertension type: essential hypertension Qualified Code(s): I10 - Essential (primary) hypertension (6) Depression Code(s): F32.9 - MAJOR DEPRESSIVE DISORDER, SINGLE EPISODE, UNSPECIFIED Qualifiers: Depression Type: unspecified Qualified Code(s): F32.9 - Major depressive disorder, single episode, unspecified
--- NOTE | 2019-02-06 16:07 | PN ---
Progress Note (short form) - Note Progress Note: Patient seen and examined Complains of neck pains s/p surgery Last Vital Signs Temp Pulse Resp BP Pulse Ox 98.1 F 90 20 121/82 100 02/06/19 14:00 02/06/19 14:00 02/06/19 14:00 02/06/19 14:00 02/06/19 01:00 HEENT: RENNY, EOM Intact Cor: RSR, No murmurs, No gallops Lungs: Clear to P&A Abd: Soft, Normal bowel sounds, No organomegaly CBC, BMP 02/05/19 05:30 02/06/19 07:00 Current Medications Generic Name Dose Route Start Last Admin Trade Name Freq PRN Reason Stop Dose Admin Acetaminophen 650 mg 02/04/19 13:02 02/05/19 20:12 Tylenol Oral Solution - PO 650 mg Q6H PRN Administration PAIN OR FEVER Albuterol/Ipratropium 1 amp 02/04/19 20:00 02/06/19 08:53 Duoneb - NEB 1 amp RBID [facility] Administration Amlodipine Besylate 5 mg 02/05/19 10:00 02/06/19 09:55 Norvasc - PO 5 mg DAILY [facility] Administration Diphenhydramine HCl 25 mg 02/04/19 11:33 Benadryl - PO Q6H PRN FOR ITCHING Docusate Sodium 100 mg 02/04/19 14:00 02/06/19 14:11 Colace - PO Not Given TID [facility] Fentanyl 25 mcg 02/04/19 11:36 Sublimaze Injection - IVPUSH [id number] PRN PAIN-PACU ORDER X 4 DOSES ONLY Ferrous Sulfate 325 mg 02/05/19 10:00 02/06/19 09:55 Feosol - PO 325 mg DAILY [facility] Administration Folic Acid 1 mg 02/05/19 10:00 02/06/19 09:55 Folic Acid - PO 1 mg DAILY [facility] Administration Heparin Sodium (Porcine) 5,000 unit 02/04/19 22:00 02/06/19 14:09 Heparin - SQ 5,000 unit TID [facility] Administration Lactated Ringer's 1,000 mls @ 125 mls/hr 02/04/19 11:36 02/06/19 11:44 Lactated Ringers Solution IV Not Given ASDIR [facility] Cefazolin Sodium 1 gm/ 50 mls @ 100 mls/hr 02/04/19 17:00 02/06/19 09:56 Dextrose IVPB 100 mls/hr Q8H-IV [facility] Administration Lisinopril 5 mg 02/05/19 10:00 02/06/19 09:55 Prinivil PO 5 mg DAILY [facility] Administration Nortriptyline HCl 50 mg 02/04/19 22:00 02/05/19 22:51 Pamelor - PO 50 mg HS [facility] Administration Ondansetron HCl 4 mg 02/04/19 11:33 02/05/19 22:01 Zofran Injection IVPUSH 4 mg Q6H PRN Administration NAUSEA Oxycodone HCl 5 mg 02/04/19 11:33 Roxicodone - PO Q4H PRN PAIN LEVEL 1-5 Oxycodone HCl 10 mg 02/04/19 11:33 Roxicodone - PO Q4H PRN PAIN LEVEL 6-10 Pantoprazole Sodium 20 mg 02/05/19 10:00 02/06/19 09:54 Protonix Iv IVPUSH 20 mg DAILY [facility] Administration Polyethylene Glycol 17 gm 02/04/19 22:00 02/06/19 11:44 Miralax (For Daily Use) - PO 17 gm BID [facility] Administration Potassium Chloride 10 meq 02/06/19 15:58 K-Dur - PO 02/06/19 15:59 ONCE ONE Promethazine HCl 12.5 mg 02/04/19 11:36 Phenergan Injection - IVPUSH Q6H PRN NAUSEA-FOR RESCUE AFTER 15 MIN Senna 1 tab 02/04/19 22:00 02/05/19 22:50 Senna - PO 1 tab HS [facility] Administration Sumatriptan Succinate 50 mg 02/04/19 11:36 Imitrex - PO PRN PRN HEADACHE Topiramate 100 mg 02/04/19 22:00 02/06/19 09:55 Topamax - PO 100 mg BID [facility] Administration Venlafaxine HCl 150 mg 02/04/19 22:00 02/05/19 22:50 Effexor Xr - PO 150 mg HS [facility] Administration Impression: S/P corporectomy Path pending S/P lung biopsy - necrotic material S/P thyroid biopsy - atypia with follicular atypia Await path.
[2019-02-06] MEDS: ACETAMINOPHEN 650 MG/20.3 ML ORAL SOLUTION (CUPS) PO PRN (21:57)
[2019-02-06] MEDS: VENLAFAXINE HCL 75 MG E.R. CAPSULES (FP) PO SCH (21:58)
[2019-02-06] MEDS: NORTRIPTYLINE HCL 25 MG CAPSULE PO SCH (21:58)
[2019-02-06] MEDS: SENNOSIDES 8.6MG TABLET (FP) PO SCH (21:58)
[2019-02-07] MEDS: oxyCODONE HCL 5 MG TABLET PO PRN ×2 (00:21→21:43)
[2019-02-07] MEDS ORDERED: DEXTROSE 5%-WATER - 50 ML IVPB ONE ×3 (01:36→18:04)
[2019-02-07] MEDS ORDERED: ceFAZolin SODIUM 1 GM VIAL ONE ×3 (01:36→18:04)
[2019-02-07] MEDS: CEFAZOLIN 1 GM in DEXTROSE 5%-WATER - 50 ML IVPB SCH ×3 (01:44→18:08)
[2019-02-07] MEDS: HEPARIN NA (PORCINE) 5,000 UNITS/ML 1ML VIAL SQ SCH ×3 (06:49→21:42)
[2019-02-07] MEDS: DOCUSATE SODIUM 100 MG CAPSULE (FP) PO SCH ×3 (06:49→21:38)
[2019-02-07] MEDS: ALBUTEROL SO4 2.5/IPRATROPIUM 0.5 INH SOL 3 ML VIAL.NEB. NEB SCH ×2 (07:46→20:24)
--- NOTE | 2019-02-07 08:05 | PN ---
Progress Note (short form) - Note Progress Note: Feels overall better. Hard collar intact. Denies shortness of breath or chest tightness. 2500 cc with IS. Intake & Output 02/04/19 02/05/19 02/06/19 02/07/19 23:59 23:59 23:59 23:59 Intake Total 2500 2125 2375 1525 Output Total 1575 2660 Balance 925 -535 2375 1525 Last Vital Signs Temp Pulse Resp BP Pulse Ox 98.4 F 76 20 122/77 100 02/07/19 07:24 02/07/19 07:24 02/07/19 07:24 02/07/19 07:24 02/06/19 01:00 Active Medications Acetaminophen (Tylenol Oral Solution -) 650 mg PO Q6H PRN PRN Reason: PAIN OR FEVER Last Admin: 02/06/19 21:57 Dose: 650 mg Albuterol/Ipratropium (Duoneb -) 1 amp NEB RBID [facility] Last Admin: 02/07/19 07:46 Dose: 1 amp Amlodipine Besylate (Norvasc -) 5 mg PO DAILY [facility] Last Admin: 02/06/19 09:55 Dose: 5 mg Diphenhydramine HCl (Benadryl -) 25 mg PO Q6H PRN PRN Reason: FOR ITCHING Docusate Sodium (Colace -) 100 mg PO TID [facility] Last Admin: 02/07/19 06:49 Dose: Not Given Fentanyl (Sublimaze Injection -) 25 mcg IVPUSH [id number] PRN PRN Reason: PAIN-PACU ORDER X 4 DOSES ONLY Ferrous Sulfate (Feosol -) 325 mg PO DAILY [facility] Last Admin: 02/06/19 09:55 Dose: 325 mg Folic Acid (Folic Acid -) 1 mg PO DAILY [facility] Last Admin: 02/06/19 09:55 Dose: 1 mg Heparin Sodium (Porcine) (Heparin -) 5,000 unit SQ TID [facility] Last Admin: 02/07/19 06:49 Dose: 5,000 unit Lactated Ringer's (Lactated Ringers Solution) 1,000 mls @ 125 mls/hr IV ASDIR [facility] Last Admin: 02/06/19 11:44 Dose: Not Given Cefazolin Sodium 1 gm/ (Dextrose) 50 mls @ 100 mls/hr IVPB Q8H-IV [facility] Last Admin: 02/07/19 01:44 Dose: 100 mls/hr Lisinopril (Prinivil) 5 mg PO DAILY [facility] Last Admin: 02/06/19 09:55 Dose: 5 mg Nortriptyline HCl (Pamelor -) 50 mg PO [facility] Last Admin: 02/06/19 21:58 Dose: 50 mg Ondansetron HCl (Zofran Injection) 4 mg IVPUSH Q6H PRN PRN Reason: NAUSEA Last Admin: 02/05/19 22:01 Dose: 4 mg Oxycodone HCl (Roxicodone -) 5 mg PO Q4H PRN PRN Reason: PAIN LEVEL 1-5 Oxycodone HCl (Roxicodone -) 10 mg PO Q4H PRN PRN Reason: PAIN LEVEL 6-10 Last Admin: 02/07/19 00:21 Dose: 10 mg Pantoprazole Sodium (Protonix Iv) 20 mg IVPUSH DAILY [facility] Last Admin: 02/06/19 09:54 Dose: 20 mg Polyethylene Glycol (Miralax (For Daily Use) -) 17 gm PO BID [facility] Last Admin: 02/06/19 22:59 Dose: 17 gm Promethazine HCl (Phenergan Injection -) 12.5 mg IVPUSH Q6H PRN PRN Reason: NAUSEA-FOR RESCUE AFTER 15 MIN Senna (Senna -) 1 tab PO [facility] Last Admin: 02/06/19 21:58 Dose: 1 tab Sumatriptan Succinate (Imitrex -) 50 mg PO PRN PRN PRN Reason: HEADACHE Topiramate (Topamax -) 100 mg PO BID [facility] Last Admin: 02/06/19 21:59 Dose: 100 mg Venlafaxine HCl (Effexor Xr -) 150 mg PO [facility] Last Admin: 02/06/19 21:58 Dose: 150 mg Gen: NAD at rest Heart: RRR Lung: decreased breath sounds at the bases Abd: soft, nontender Ext: no edema Laboratory Results - last 24 hr 02/06/19 07:00 Sodium 138 Potassium 3.4 L Chloride 98 Carbon Dioxide 31 Anion Gap 9 BUN 9.9 Creatinine 0.5 L Est GFR (CKD-EPI)AfAm 128.97 Est GFR (CKD-EPI)NonAf 111.28 Random Glucose 105 Calcium 9.2 A/P Metastatic Disease R/O Lung CA Primary HTN - Awaiting pathology - inhaled bronchodilators - incentive spirometry - pain control - DVT prophylaxis Dr Rees
[2019-02-07] MEDS: FERROUS SO4 325 MG TABLET (FP) PO SCH (11:11)
[2019-02-07] MEDS: FOLIC ACID 1 MG TABLET (FP) PO SCH (11:11)
[2019-02-07] MEDS: LISINOPRIL 5 MG TABLET (FP) PO SCH (11:11)
[2019-02-07] MEDS: amLODIPine BESYLATE 5 MG TABLET (FP) PO SCH (11:11)
[2019-02-07] MEDS: TOPIRAMATE 100 MG TABLET PO SCH ×2 (11:11→21:41)
[2019-02-07] MEDS: PANTOPRAZOLE SODIUM 40 MG VIAL IVPUSH SCH (11:12)
[2019-02-07] MEDS: POLYETHYLENE GLYCOL 3350 119 GM BTL PO SCH ×2 (11:12→22:38)
--- NOTE | 2019-02-07 14:54 | PN ---
Progress Note (short form) - Note Progress Note: Radiation Oncology Chart reviewed. Biopsies of thyroid and lung not definitive for malignancy. s/p C5 corpectomy, path pending. Neck pain a bit better, less radiation to left shoulder. Difficulty swallowing. 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 Pain mgt. Neurosx f/u.
--- NOTE | 2019-02-07 16:12 | PN ---
Progress Note (short form) - Note Progress Note: Current Medications Acetaminophen (Tylenol Oral Solution -) 650 mg PO Q6H PRN PRN Reason: PAIN OR FEVER Last Admin: 02/06/19 21:57 Dose: 650 mg Albuterol/Ipratropium (Duoneb -) 1 amp NEB RBID [facility] Last Admin: 02/07/19 07:46 Dose: 1 amp Amlodipine Besylate (Norvasc -) 5 mg PO DAILY [facility] Last Admin: 02/07/19 11:11 Dose: 5 mg Diphenhydramine HCl (Benadryl -) 25 mg PO Q6H PRN PRN Reason: FOR ITCHING Docusate Sodium (Colace -) 100 mg PO TID [facility] Last Admin: 02/07/19 15:17 Dose: 100 mg Fentanyl (Sublimaze Injection -) 25 mcg IVPUSH [id number] PRN PRN Reason: PAIN-PACU ORDER X 4 DOSES ONLY Ferrous Sulfate (Feosol -) 325 mg PO DAILY [facility] Last Admin: 02/07/19 11:11 Dose: 325 mg Folic Acid (Folic Acid -) 1 mg PO DAILY [facility] Last Admin: 02/07/19 11:11 Dose: 1 mg Heparin Sodium (Porcine) (Heparin -) 5,000 unit SQ TID [facility] Last Admin: 02/07/19 15:17 Dose: 5,000 unit Lactated Ringer's (Lactated Ringers Solution) 1,000 mls @ 125 mls/hr IV ASDIR [facility] Last Admin: 02/06/19 11:44 Dose: Not Given Cefazolin Sodium 1 gm/ (Dextrose) 50 mls @ 100 mls/hr IVPB Q8H-IV [facility] Last Admin: 02/07/19 11:11 Dose: 100 mls/hr Lisinopril (Prinivil) 5 mg PO DAILY [facility] Last Admin: 02/07/19 11:11 Dose: 5 mg Nortriptyline HCl (Pamelor -) 50 mg PO HS [facility] Last Admin: 02/06/19 21:58 Dose: 50 mg Ondansetron HCl (Zofran Injection) 4 mg IVPUSH Q6H PRN PRN Reason: NAUSEA Last Admin: 02/05/19 22:01 Dose: 4 mg Oxycodone HCl (Roxicodone -) 5 mg PO Q4H PRN PRN Reason: PAIN LEVEL 1-5 Oxycodone HCl (Roxicodone -) 10 mg PO Q4H PRN PRN Reason: PAIN LEVEL 6-10 Last Admin: 02/07/19 00:21 Dose: 10 mg Pantoprazole Sodium (Protonix Iv) 20 mg IVPUSH DAILY [facility] Last Admin: 02/07/19 11:12 Dose: 20 mg Polyethylene Glycol (Miralax (For Daily Use) -) 17 gm PO BID [facility] Last Admin: 02/07/19 11:12 Dose: 17 gm Promethazine HCl (Phenergan Injection -) 12.5 mg IVPUSH Q6H PRN PRN Reason: NAUSEA-FOR RESCUE AFTER 15 MIN Senna (Senna -) 1 tab PO [facility] Last Admin: 02/06/19 21:58 Dose: 1 tab Sumatriptan Succinate (Imitrex -) 50 mg PO PRN PRN PRN Reason: HEADACHE Topiramate (Topamax -) 100 mg PO BID [facility] Last Admin: 02/07/19 11:11 Dose: 100 mg Venlafaxine HCl (Effexor Xr -) 150 mg PO [facility] Last Admin: 02/06/19 21:58 Dose: 150 mg Vital Signs Temperature 98.3 F 02/07/19 15:00 Pulse Rate 94 H 02/07/19 15:00 Respiratory Rate 18 02/07/19 15:00 Blood Pressure 135/84 02/07/19 15:00 O2 Sat by Pulse Oximetry (%) 100 02/06/19 01:00 CC; none ```````````````````````````````````````` skin--NL color; IV site clean eyes--midline neck--with anterior dressing; not saturated heart--RR lungs--grossly clear, unlabored neuro-- able to move limbs on command; no gross deficits ````````````````````````````` Summ > 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 Question of low grade sarcoma being raised. PLAN: Await final decision by Pathology; Cont pain control measures for now; await final determination by path & Onc review > Htn--fluctuates at times; echo is relatively benign: Plan: cont dual BP meds with parameters > Multi/nod thyroid--thyroid Bx; results show atypia of unclear significance; Thyroid Abs are negative. > Constipation--helped by laxatives > Hx of migraines--on anti-migr meds > hx of depression--on SSRI & TCA as per neuro ````````````````````````````````````````````````` Dr Paul Problem List - Problems (1) Neoplasm of cervical vertebra Code(s): D49.2 - NEOPLASM OF UNSP BEHAVIOR OF BONE, SOFT TISSUE, AND SKIN (2) Headache Code(s): R51 - HEADACHE Qualifiers: Headache type: unspecified Headache chronicity pattern: unspecified pattern Intractability: not intractable Qualified Code(s): R51 - Headache (3) Abnormal chest CT Code(s): R93.89 - ABNORMAL FINDINGS ON DX IMAGING OF OTH BODY STRUCTURES (4) Thyroid lesion Code(s): E07.89 - OTHER SPECIFIED DISORDERS OF THYROID (5) Hypertension Code(s): I10 - ESSENTIAL (PRIMARY) HYPERTENSION Qualifiers: Hypertension type: essential hypertension Qualified Code(s): I10 - Essential (primary) hypertension (6) Depression Code(s): F32.9 - MAJOR DEPRESSIVE DISORDER, SINGLE EPISODE, UNSPECIFIED Qualifiers: Depression Type: unspecified Qualified Code(s): F32.9 - Major depressive disorder, single episode, unspecified
--- NOTE | 2019-02-07 17:52 | PN ---
Progress Note (short form) - Note Progress Note: Patient seen and examined s/p C5 corpectomy with tumor debulking/decompression of spondylosis and reconstruction with Peek cage and anterior plating awake,alert, having dinner AFVSS Cor: RSR, No murmurs, No gallops Lungs: Clear to P&A Abd: Soft, Normal bowel sounds, No organomegaly Ext:No significant edema Labs/Meds reviewed a/p 53 y/o patient with presumed metastatic bone lesions on imaging s/p C5 corpectomy with tumor debulking/decompression of spondylosis and reconstruction with Peek cage and anterior plating Lung biopsy --inflammation/necrotic 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
[2019-02-07] MEDS ORDERED: PT OWN MED DRAWER 7, Y5N ONE (21:34)
[2019-02-07] MEDS: VENLAFAXINE HCL 75 MG E.R. CAPSULES (FP) PO SCH (21:39)
[2019-02-07] MEDS: NORTRIPTYLINE HCL 25 MG CAPSULE PO SCH (21:40)
[2019-02-07] MEDS: SENNOSIDES 8.6MG TABLET (FP) PO SCH (21:40)
[2019-02-07] MEDS: LACTATED RINGERS SOLUTION 1,000 ML IV SCH (22:07)
[2019-02-08] MEDS ORDERED: ceFAZolin SODIUM 1 GM VIAL ONE ×2 (01:30→10:28)
[2019-02-08] MEDS ORDERED: DEXTROSE 5%-WATER - 100 ML IVPB ONE (01:30)
[2019-02-08] MEDS: CEFAZOLIN 1 GM in DEXTROSE 5%-WATER - 50 ML IVPB SCH ×2 (01:49→10:47)
[2019-02-08] MEDS: DOCUSATE SODIUM 100 MG CAPSULE (FP) PO SCH ×2 (06:40→13:45)
[2019-02-08] MEDS: HEPARIN NA (PORCINE) 5,000 UNITS/ML 1ML VIAL SQ SCH ×2 (06:41→13:45)
[2019-02-08] MEDS ORDERED: PT OWN MED DRAWER 7, Y5N ONE ×2 (08:45→09:23)
--- NOTE | 2019-02-08 09:13 | PN ---
Progress Note (short form) - Note Progress Note: POD #4 Alert. C/o mild incisional tenderness otherwise recovering as expected. Denies n/v/f/c, CP, SOB or MORENO. Last Vital Signs Temp Pulse Resp BP Pulse Ox 97.8 F 81 20 145/91 100 02/08/19 06:00 02/08/19 06:00 02/08/19 06:00 02/08/19 06:00 02/06/19 01:00 Gen: nad Neck: dressing c/d/i. soft. supple. 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
[2019-02-08] MEDS ORDERED: DEXTROSE 5%-WATER - 50 ML IVPB ONE (10:28)
[2019-02-08] MEDS: TOPIRAMATE 100 MG TABLET PO SCH (10:46)
[2019-02-08] MEDS: amLODIPine BESYLATE 5 MG TABLET (FP) PO SCH (10:47)
[2019-02-08] MEDS: LISINOPRIL 5 MG TABLET (FP) PO SCH (10:47)
[2019-02-08] MEDS: PANTOPRAZOLE SODIUM 40 MG VIAL IVPUSH SCH (10:47)
[2019-02-08] MEDS: FOLIC ACID 1 MG TABLET (FP) PO SCH (10:47)
[2019-02-08] MEDS: FERROUS SO4 325 MG TABLET (FP) PO SCH (10:47)
[2019-02-08] MEDS: POLYETHYLENE GLYCOL 3350 119 GM BTL PO SCH (10:48)
[2019-02-08] MEDS: ALBUTEROL SO4 2.5/IPRATROPIUM 0.5 INH SOL 3 ML VIAL.NEB. NEB SCH (11:25)
--- NOTE | 2019-02-08 12:35 | PN ---
Progress Note (short form) - Note Progress Note: PULMONARY Denies shortness of breath or chest tightness but with new cough productive of white sputum. No fevers or chills. Vital Signs Period Temp Pulse Resp BP Sys/Cho Pulse Ox Last 24 Hr 97.8 F-98.6 F 80-110 18-20 131-145/83-91 Gen: NAD at rest Heart: RRR Lung: decreased breath sounds at the bases Abd: soft, nontender Ext: no edema CBC, BMP 02/05/19 05:30 02/06/19 07:00 Active Medications Acetaminophen (Tylenol Oral Solution -) 650 mg PO Q6H PRN PRN Reason: PAIN OR FEVER Last Admin: 02/06/19 21:57 Dose: 650 mg Albuterol/Ipratropium (Duoneb -) 1 amp NEB RBID [facility] Last Admin: 02/07/19 20:24 Dose: 1 amp Amlodipine Besylate (Norvasc -) 5 mg PO DAILY [facility] Last Admin: 02/08/19 10:47 Dose: 5 mg Diphenhydramine HCl (Benadryl -) 25 mg PO Q6H PRN PRN Reason: FOR ITCHING Docusate Sodium (Colace -) 100 mg PO TID [facility] Last Admin: 02/08/19 06:40 Dose: Not Given Fentanyl (Sublimaze Injection -) 25 mcg IVPUSH [id number] PRN PRN Reason: PAIN-PACU ORDER X 4 DOSES ONLY Ferrous Sulfate (Feosol -) 325 mg PO DAILY [facility] Last Admin: 02/08/19 10:47 Dose: 325 mg Folic Acid (Folic Acid -) 1 mg PO DAILY [facility] Last Admin: 02/08/19 10:47 Dose: 1 mg Heparin Sodium (Porcine) (Heparin -) 5,000 unit SQ TID [facility] Last Admin: 02/08/19 06:41 Dose: 5,000 unit Cefazolin Sodium 1 gm/ (Dextrose) 50 mls @ 100 mls/hr IVPB Q8H-IV [facility] Last Admin: 02/08/19 10:47 Dose: 100 mls/hr Lisinopril (Prinivil) 5 mg PO DAILY [facility] Last Admin: 02/08/19 10:47 Dose: 5 mg Nortriptyline HCl (Pamelor -) 50 mg PO HS [facility] Last Admin: 02/07/19 21:40 Dose: 50 mg Ondansetron HCl (Zofran Injection) 4 mg IVPUSH Q6H PRN PRN Reason: NAUSEA Last Admin: 02/05/19 22:01 Dose: 4 mg Oxycodone HCl (Roxicodone -) 5 mg PO Q4H PRN PRN Reason: PAIN LEVEL 1-5 Oxycodone HCl (Roxicodone -) 10 mg PO Q4H PRN PRN Reason: PAIN LEVEL 6-10 Last Admin: 02/07/19 21:43 Dose: 10 mg Pantoprazole Sodium (Protonix Iv) 20 mg IVPUSH DAILY [facility] Last Admin: 02/08/19 10:47 Dose: 20 mg Polyethylene Glycol (Miralax (For Daily Use) -) 17 gm PO BID [facility] Last Admin: 02/08/19 10:48 Dose: 17 gm Promethazine HCl (Phenergan Injection -) 12.5 mg IVPUSH Q6H PRN PRN Reason: NAUSEA-FOR RESCUE AFTER 15 MIN Senna (Senna -) 1 tab PO [facility] Last Admin: 02/07/19 21:40 Dose: 1 tab Sumatriptan Succinate (Imitrex -) 50 mg PO PRN PRN PRN Reason: HEADACHE Last Admin: 02/08/19 09:26 Dose: 50 mg Topiramate (Topamax -) 100 mg PO BID [facility] Last Admin: 02/08/19 10:46 Dose: 100 mg Venlafaxine HCl (Effexor Xr -) 150 mg PO [facility] Last Admin: 02/07/19 21:39 Dose: 150 mg A/P Metastatic Disease r/o Lung Ca HTN - repeat CXR - inhaled bronchodilators - incentive spirometry - pain control - DVT prophylaxis
--- NOTE | 2019-02-08 13:59 | DS ---
Physical Examination Vital Signs: Vital Signs Temperature 97.8 F 02/08/19 06:00 Pulse Rate 81 02/08/19 06:00 Respiratory Rate 20 02/08/19 06:00 Blood Pressure 145/91 02/08/19 06:00 O2 Sat by Pulse Oximetry (%) 100 02/06/19 01:00 Constitutional: Yes: Anxious Eyes: Yes: WNL, Conjunctiva Clear HENT: Yes: WNL Neck: Yes: Other (with "stiff collar" ROm limited; anterior neck dressing) Cardiovascular: Yes: Regular Rate and Rhythm Respiratory: Yes: Regular Gastrointestinal: Yes: Normal Bowel Sounds ...Rectal Exam: Yes: Deferred Renal/: Yes: WNL Musculoskeletal: Yes: WNL Extremities: Yes: WNL Edema: No Integumentary: Yes: WNL Wound/Incision: Yes: Clean/Dry Neurological: Yes: Alert, Oriented ...Motor Strength: WNL Psychiatric: Yes: WNL Labs: CBC, BMP 02/05/19 05:30 02/06/19 07:00 Discharge Summary Reason For Visit: 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 thyroid Bx Hospital Course: 53 YO F with antecedent Hx of headaches and Lt sided neck pains was sent to ER by PCP after she was found to have c-spine lesions by MRI very suggestive of metastatic disease. further imaging showed the presence of multiple "ground glass" lesions in the lung and thyroid nodules. She underwent Bx of both the lung and thyroid lesions but neither of which demonstrated the presence of a definite malignancy. She then underwent C-spine surgery w/ corpectomy of the involved verterbra which showed the presence of "spindle cell" neoplasm (as of yet unofficially classified) again suggestive of a possible metastatic malignancy; but the specimen obtained is to be further studied. The patient was stable post procedure c/o only of some neck pains and difficulty swallowing ( 2nd pain) as well as some coughing. This was discussed w/ dr Harris who stated that this is a normal development in the immediate post op stage. CXR taken today did not reveal any acute pathology. She was instructed to see Dr Bull (PCP) and Dr Harris in follow up. Condition: Stable - Instructions Diet, Activity, Other Instructions: Post Operative Instructions Physical Activity Resume your normal everyday activity as tolerated. No heavy lifting or exercise until seen by your surgeon. You may walk unlimited amounts and climb stairs. You may resume driving the car when you feel safe and comfortable behind the wheel and you are no longer wearing your brace. Do not operate a vehicle while taking narcotic medication. Brace You had neck surgery, wear surgical collar 23 hr/day. May remove while eating and or bathing only. Wound Care Keep your incision clean, dry and covered at all times. Apply an occlusive dressing (Saran wrap or Tegaderm) when showering to avoid getting your incision wet. Do not submerge incision or apply ointments or creams. The rico will be removed in the office in 10-14 days post-op. Diet There are no dietary restrictions. Eat healthy, high-fiber foods. Drink 6-8 glasses of liquid each day. This will assist in keeping your bowels regular. Pain Management You may take Tylenol or acetaminophen. Any pain prescription medication ordered should be taken as prescribed for moderate to severe pain. Avoid any ibuprofen (Motrin, Advil, Aleve, Toradol, etc) for 3 months unless otherwise discussed with your surgeon. Call Dr Waggoner for any of the following: Severe pain not relieved by medication Fever of 101 or higher Excessive bleeding or drainage on dressing Inability to urinate Any chest pain or shortness of breath, seek Emergency Care. Call the office to confirm a post-operative appointment for 2-3 weeks post-op Pancho Vickers MD [facility] [address] [place] [address]. [place] [address] Referrals: Anton Bull MD [Primary Care Provider] - Disposition: HOME - Home Medications Comprehensive Discharge Medication List: Ambulatory Orders Amlodipine Besylate 5mg daily 01/24/19 Lisinopril [Prinivil] 10 mg PO BID 01/24/19 Nortriptyline HCl [Pamelor -] 1 cap PO HS 01/24/19 Topiramate 100 mg PO BID 01/24/19 Venlafaxine HCl ER [Effexor Xr -] 1 cap PO HS 01/24/19 Tylenol ES 1000mg BID as needed (OTC)
[2019-02-08 14:48] VITALS: BP 113/77; PULSE 84; TEMP 98.2
--- NOTE | 2019-02-14 15:33 | PATH ---
Surgical Pathology Report Patient Name: CARLA SPENCE Med. Rec. #: [id number] /Age/Gender: 1965 (Age: 53) / F Account: [id number] Location: [facility]URG Taken: 02/04/2019 Received: 02/04/2019 Reported: 02/14/2019 Physicians: Pancho Waggoner M.D. Aleks Paul M.D. Manjula Brody M.D. Manjula Pierce M.D., PhD Specimen(s) Received A: C5 VERTEBRAL BODY TUMOR UNKNOWN PRIMARY B: C5 VERTEBRAL BODY TUMOR UNKNOWN PRIMARY Clinical History Metastasis to spinal column, vertebral body tumor of unknown primary, C5 Intraoperative Consult Diagnosis Vertebral body tumor, C5, frozen section: Lesional tissue, highly suspicious for malignancy. Tao Garcia M.D., 02/04/2019 Final Diagnosis A. VERTEBRAL BODY TUMOR, C5, UNKNOWN PRIMARY, EXCISION (FS): ATYPICAL CELLS PRESENT, SEE PART B. B. 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 SEE COMMENT. Comment: Part A, the atypical cells are best seen in frozen section slides. Part B, Histologic sections show the bone is extensively replaced by a spindle cell neoplasm comprised of atypical spindle cells with mild to moderate atypia and discrete mitosis, imbedded in fibrous stroma. Immunohistochemical stains performed and interpreted at [facility] show the spindle cell neoplasm is positive for AE1/3; while negative for S100. Additional immunohistochemical stains performed at [place], [place] ([id number]) and interpreted at [facility] show the neoplasm is positive for vimentin, Cam5.2, SMA, and EMILEE (patchy). Calponin shows rare cells have weak positive staining. CK7, CK20, CKHMW, desmin, p40, GATA3, ER, Pax8, ALK-1, BCL2, WT-1, TTF-1, Calretinin, CD31, CD34, and Factor XIIIa are all negative. This case is challenging. Despite the exhaustive immunohistochemical work-up performed, the above immunophenotype is non-specific. Overall, findings show a malignant spindle cell neoplasm with epithelial (AE1/3+, Cam5.2+, EMILEE+) and smooth muscle (SMA+) differentiation; wherein a sarcomatoid carcinoma is a consideration. Suggest clinical and radiologic correlation to determine possible site of origin. Medical chart and imaging studies reviewed. Case seen interdepartmentally. Findings discussed with Drs. Brizuela, Tram, Ml Mckinnon, and Beverly. Positive and negative controls (internal if applicable) show appropriate results. Electronically Signed Becky Stroud M.D. Gross Description A. Received fresh labeled "vertebral body tumor unknown primary," is a 0.2 x 0.2 x 0.1 cm sanchez-red portion of firm tissue. The specimen is submitted in toto for frozen section. The frozen section residue is entirely submitted in one cassette. B. Received in formalin labeled "C5 vertebral body tumor unknown primary," is a 2.4 x 1.7 x 0.4 cm aggregate of sanhcez-brown bone fragments. The larger portions are sectioned and the specimen is entirely submitted in 2 cassettes, following decalcification. 02/04/2019 [facility]02/04/2019
--- NOTE | 2019-02-21 16:44 | SURG ---
Surgery Breeding Technician Note Breeding Technician: Patria Crook PA-C Date of Service: 02/04/19 Diagnosis: Cervical Spondylosis with metastatic lesions Procedure: 1) Interbody cage (corpectomy) 2) C4 caudal hemicorpectomy with resection of osteophytes and posterior longitudinal ligament (Technically challenging) 3) C5 corpectomy with resection of osteophytes and posterior longitudinal ligament 4) C6 rostral Hemicorpectomy with resection of osteophytes and posterior longitudinal ligament 5) anterior instrumentation C4-C6 (Technically challenging) 6) Floroscopy 7) microdissection 8) C45 arthrodesis 9) C56 Arthrodesis 10) local autograft 11) deformity correction (moravian of lordosis) I was present for the entirety of the operative procedure. For further detail, please refer to operative report. Visit type - Case Type Case Type: ED Admission - Emergency Emergency Visit: Yes ED Registration Date: 01/24/19 Care time: The patient presented to the Emergency Department on the above date and was hospitalized for further evaluation of their emergent condition. - New patient This patient is new to me today: Yes Date on this admission: 02/04/19
--- NOTE | 2019-02-26 09:36 | EKG ---
Test Reason : Blood Pressure : / mmHG Vent. Rate : 084 BPM Atrial Rate : 084 BPM P-R Int : 158 ms QRS Dur : 094 ms QT Int : 346 ms P-R-T Axes : 046 027 058 degrees QTc Int : 408 ms NORMAL SINUS RHYTHM CANNOT RULE OUT INFERIOR INFARCT , AGE UNDETERMINED ABNORMAL ECG WHEN COMPARED WITH ECG OF 25-JAN-2019 11:28, PREMATURE SUPRAVENTRICULAR COMPLEXES ARE NO LONGER PRESENT Confirmed by Nelson Pham MD ([id number]) on 02/26/2019 9:36:06 AM Referred By: ANNIE Confirmed By:Nelson Pham MD
== END 2019-02-08 15:08 | disposition home or self-care (01) | DRG 472 ==
LOC: JER 08:42 → JERFT 08:42 → JERBED 11:15 → J7W 15:25 → J8W 02-04 13:10
PROVIDERS: ADMIT Internal Medicine; ATTEND Internal Medicine
PROC: 0BBG3ZX Excision of Left Upper Lung Lobe, Percutaneous Approach, Diagnostic (ICD-10-PCS; 2019-01-28)
PROC: 0GBG3ZX Excision of Left Thyroid Gland Lobe, Percutaneous Approach, Diagnostic (ICD-10-PCS; 2019-01-30)
PROC: 0RB30ZZ Excision of Cervical Vertebral Disc, Open Approach (ICD-10-PCS; 2019-02-04)
PROC: 01N10ZZ Release Cervical Nerve, Open Approach (ICD-10-PCS; 2019-02-04)
PROC: B01BZZZ Fluoroscopy of Spinal Cord (ICD-10-PCS; 2019-02-04)
PROC: 4A11X4G Monitoring of Peripheral Nervous Electrical Activity, Intraoperative, External Approach (ICD-10-PCS; 2019-02-04)
PROC: 0RG20A0 Fusion of 2 or more Cervical Vertebral Joints with Interbody Fusion Device, Anterior Approach, Anterior Column, Open Approach (ICD-10-PCS; principal; 2019-02-04 08:00)
DX: M47.892 Other spondylosis, cervical region (principal); C79.52 Secondary malignant neoplasm of bone marrow; M50.221 Other cervical disc displacement at C4-C5 level; F32.9 Major depressive disorder, single episode, unspecified; E04.1 Nontoxic single thyroid nodule; E87.6 Hypokalemia; I10 Essential (primary) hypertension; K59.00 Constipation, unspecified; G43.909 Migraine, unspecified, not intractable, without status migrainosus; R07.9 Chest pain, unspecified; R00.0 Tachycardia, unspecified; R91.1 Solitary pulmonary nodule; I95.9 Hypotension, unspecified; R55 Syncope and collapse
CPT/HCPCS: 32405; 36415; 70450-TC; 71045-TC-FY; 71046-TC-FY; 71260-TC; 72125-TC; 72126-TC; 72127-TC; 74177-TC; 76000-TC-FY; 76098-TC-FY; 76536-TC; 76942; 77012-TC; 80048; 80053; 81003; 82962; 84436; 84443; 84484; 85025; 85027; 85610; 85730; 86376; 86480; 86800; 86850; 86900; 86901; 87899; 88305-TC; 88307-TC; 88311-TC; 88331-TC; 88341-TC; 93005; 93010; 93306-TC; 94640; 94760; 97116-GP; 97162-GP; 99282-25; J0131; J1644; J7030

== ENCOUNTER 2019-02-23 10:13 | Emergency (ER) | payer OTHER ==
[2019-02-23 10:24] VITALS: BMI 22.8
[2019-02-23] MEDS ORDERED: SODIUM CHLORIDE 1,000 ML IV STA (10:49)
[2019-02-23] MEDS ORDERED: ONDANSETRON 4 MG/2 ML VIAL IVPUSH ONE (10:49)
[2019-02-23] MEDS ORDERED: FAMOTIDINE 20 MG/50 ML IVPB 20 MG/50 ML MG IVPB ONE ×2 (10:50→10:57)
--- NOTE | 2019-02-23 10:55 | PDOC ---
Attending Attestation - Resident Resident Name: Karl Barcenas - ED Attending Attestation I have performed the following: I have examined & evaluated the patient, The case was reviewed & discussed with the resident, I agree w/resident's findings & plan, Exceptions are as noted - HPI HPI: 02/23/19 12:44 53yo F hx spinal mets with unknown primary on radiation (last yesterday to the c -spine), C1-C3 fusion presents to the ED with weeks of nausea and vomiting, worse over the last 24 hours. Pt states she has been having a hard time keeping food down on and off for weeks, but since last night she has not been able to keep food or drink down. She reports episodes of small volume emesis, more like spit up, NBNB in nature. Denies abdominal pain, fevers, chills. Last BM yesterday, passing flatus. Denies dizziness, headache, cp, sob, rashes. - Physicial Exam PE: 02/23/19 13:05 GENERAL: Awake, alert, and fully oriented, in no acute distress EYES: PERRLA, EOMI, sclera anicteric, conjunctiva clear ENT: Oropharynx clear without exudates. Slightly dry MM NECK: c-collar in place LUNGS: Breath sounds equal, clear to auscultation bilaterally. No wheezes, and no crackles HEART: Regular rate and rhythm, normal S1 and S2, no murmurs, rubs or gallops ABDOMEN: Soft, nontender, normoactive bowel sounds. No guarding, no rebound. No masses EXTREMITIES: Normal range of motion, no edema. No clubbing or cyanosis. No cords, erythema, or tenderness NEUROLOGICAL: Normal speech, cranial nerves intact, equal strength and sensation b/l SKIN: Warm, Dry, normal turgor, no rashes or lesions noted. - Medical Decision Making 02/23/19 11:07 53yo F hx mets to spine with unknown primary on radiation to c-spine presents to the ED with progressive N/V for weeks Vitals wnl Exam with mildly dry MM, benign abd exam Unclear etiology of sxs, but benign abd exam and prolonged duration of symptoms make an acute process such as pancreatitis, enteritis, colitis less likely No concern for radiation colitis as no radiation to abdomen Will check labs, treat sxs, PO challenge Call placed to Dr. Brizuela to discuss, awaitng call back 02/23/19 13:56 All labs, UA wnl Pt tolerating PO Feels better Discussed case with Dr. Santiago who is covering for the patient's oncologist Dr. Brizuela Plan for pt to f/u as an outpt, will DC with zofran Pt has been taking her son's zofran which has been helping but instructed to stop as we will prescribe her a course I discussed the physical exam findings, ancillary test results and final diagnoses with the patient. I answered all of the patient's questions. The patient was satisfied with the care received and felt comfortable with the discharge plan and treatment plan. The patient will call their primary care physician within 24 hours to arrange follow-up and will return to the Emergency Department with any new, persistent or worsening symptoms.
[2019-02-23] MEDS ORDERED: ONDANSETRON 4 MG/2 ML VIAL ONE (10:57)
[2019-02-23 11:09] LABS: BASO % 0.7 % (0-2.0); EOS % 0.2 % (0-4.5); HEMATOCRIT 33.9 % (32.4-45.2); LYMPH % 14.3 % (8-40); MCHC 35.4 g/dl (32.0-36.0); MEAN CELL VOLUME 81.9 fl (80-96); MONO % 8.5 % (3.8-10.2); NEUT % 76.3 % (42.8-82.8); PLATELET COUNT 248 K/MM3 (134-434); RBC 4.14 M/mm3 (3.60-5.2); RDW 13.3 % (11.6-15.6); WHITE BLOOD COUNT 6.5 K/mm3 (4.0-10.0)
[2019-02-23 11:34] LABS: EPI CELLS 2.8 /HPF (0-5/HPF); HYALINE CASTS 21 /lpf (0-8); PH,URINE 6.5 (5.0-8.0); URINE APPEARANCE CLOUDY; URINE BACTERIA 3.2 /hpf (NEGATIVE); URINE BILIRUBIN 1+ (NEGATIVE); URINE COLOR DK YELLOW; URINE GLUCOSE (UA) NEGATIVE (NEGATIVE); URINE KETONE TRACE (NEGATIVE); URINE LEUK ESTERASE TRACE (NEGATIVE); URINE NITRITE NEGATIVE (NEGATIVE); URINE PROTEIN 1+ (NEGATIVE); URINE WBC 3 /hpf (0-5)
[2019-02-23 11:41] LABS: ALBUMIN 3.7 g/dl (3.4-5.0); BILIRUBIN,TOTAL 0.4 mg/dL (0.2-1); BLOOD UREA NITROGEN 15.1 mg/dL (7-18); CALCIUM 9.7 mg/dL (8.5-10.1); CREATININE 0.8 mg/dL (0.55-1.3); POTASSIUM 3.8 mmol/L (3.5-5.1); TOT PROT 7.3 g/dl (6.4-8.2)
--- NOTE | 2019-02-23 11:51 | PDOC ---
History of Present Illness - General Chief Complaint: Pain Stated Complaint: ABD PAIN/ VOMITING Time Seen by Provider: 02/23/19 10:32 History Source: Patient Exam Limitations: No Limitations - History of Present Illness Initial Comments: 02/23/19 11:51 Patient is a 53F with history of spinal mets 2/2 unknown primary tumor, s/p C1- C3 fusion and currently receiving radiation here today complaining of nausea and vomiting for the past 3 days. Denies blood and bile in vomit. Denies fevers , chills. Patient states that they are unable to keep anything down. Denies chest pain, shortness of breath, leg swelling and abdominal pain. Patient is currently receiving radiation to C1 for metastatic disease of unknown origin. Patient also stopped taking oxycodone 2 days ago. Past History - Past Medical History Allergies/Adverse Reactions: Allergies Allergy/AdvReac Type Severity Reaction Status Date / Time No Known Allergies Allergy Verified 02/23/19 10:19 Home Medications: Ambulatory Orders Amlodipine Besylate 10 mg PO BID 01/24/19 Lisinopril [Prinivil] 5 mg PO BID 01/24/19 Venlafaxine HCl ER [Effexor Xr -] 1 cap PO HS 01/24/19 Ondansetron [Zofran -] 4 mg PO TID #30 tablet 02/23/19 COPD: No HTN: Yes - Immunization History Immunization Up to Date: No - Suicide/Smoking/Psychosocial Hx Smoking Status: No Smoking History: Never smoked Have you smoked in the past 12 months: No Number of Cigarettes Smoked Daily: 0 Hx Alcohol Use: No Drug/Substance Use Hx: No Substance Use Type: None Review of Systems - Review of Systems Able to Perform ROS?: Yes Comments:: 02/23/19 11:55 GENERAL/CONSTITUTIONAL: No fever or chills. No weakness. HEAD, EYES, EARS, NOSE AND THROAT: No change in vision. No ear pain or discharge. No sore throat. CARDIOVASCULAR: No chest pain or shortness of breath RESPIRATORY: No cough, wheezing, or hemoptysis. GASTROINTESTINAL: +nausea, +vomiting, no diarrhea or constipation. GENITOURINARY: No dysuria, frequency, or change in urination. MUSCULOSKELETAL: No joint or muscle swelling or pain. No neck or back pain. SKIN: No rash NEUROLOGIC: No vertigo, loss of consciousness, or change in strength/sensation. ENDOCRINE: No increased thirst. No abnormal weight change HEMATOLOGIC/LYMPHATIC: No anemia, easy bleeding, or history of blood clots. ALLERGIC/IMMUNOLOGIC: No hives or skin allergy. *Physical Exam - Vital Signs Last Vital Signs Temp Pulse Resp BP Pulse Ox 98 F 74 18 126/82 99 02/23/19 10:15 02/23/19 10:15 02/23/19 10:15 02/23/19 10:15 02/23/19 10:15 - Physical Exam Comments: 02/23/19 11:55 GENERAL: Awake, alert, and fully oriented, in no acute distress HEAD: No signs of trauma, normocephalic, atraumatic EYES: PERRLA, EOMI, sclera anicteric, conjunctiva clear ENT: Auricles normal inspection, hearing grossly normal, nares patent, oropharynx clear without exudates. Moist mucosa NECK: In soft collar, no JVD LUNGS: No distress, speaks full sentences, clear to auscultation bilaterally HEART: Regular rate and rhythm, normal S1 and S2, no murmurs, rubs or gallops, peripheral pulses normal and equal bilaterally. ABDOMEN: Soft, nontender, normoactive bowel sounds. No guarding, no rebound. No masses EXTREMITIES: Normal inspection, Normal range of motion, no edema. No clubbing or cyanosis. NEUROLOGICAL: Cranial nerves II through XII grossly intact. Normal speech, normal gait, no focal sensorimotor deficits SKIN: Warm, Dry, normal turgor, no rashes or lesions noted. ED Treatment Course - LABORATORY CBC & Chemistry Diagram: 02/23/19 10:46 02/23/19 10:46 - ADDITIONAL ORDERS Additional order review: Laboratory Results 02/23/19 02/23/19 11:15 10:46 Sodium 140 Potassium 3.8 Chloride 100 Carbon Dioxide 31 Anion Gap 9 BUN 15.1 Creatinine 0.8 Est GFR (CKD-EPI)AfAm 98.24 Est GFR (CKD-EPI)NonAf 84.76 Random Glucose 126 H Calcium 9.7 Total Bilirubin 0.4 AST 28 ALT 28 Alkaline Phosphatase 117 Total Protein 7.3 Albumin 3.7 Lipase 105 Urine Color Dk yellow Urine Appearance Cloudy Urine pH 6.5 D Ur Specific [place] 1.027 Urine Protein 1+ H Urine Glucose (UA) Negative Urine Ketones Trace H Urine Blood Negative Urine Nitrite Negative Urine Bilirubin 1+ H Urine Urobilinogen 1.0 Ur Leukocyte Esterase Trace Urine WBC (Auto) 3 Urine Casts (Auto) 21 U Epithel Cells (Auto) 2.8 Urine Bacteria (Auto) 3.2 02/23/19 10:46 RBC 4.14 MCV 81.9 MCHC 35.4 RDW 13.3 MPV 8.0 Neutrophils % 76.3 D Lymphocytes % 14.3 D Monocytes % 8.5 Eosinophils % 0.2 D Basophils % 0.7 - Medications Given in the ED: ED Medications Discontinued Medications Generic Name Dose Route Start Last Admin Trade Name Freq PRN Reason Stop Dose Admin Famotidine/Sodium Chloride 20 mg in 50 mls @ 100 mls/hr 02/23/19 10:50 11:04 Pepcid 20 Mg Premixed Ivpb - IVPB 02/23/19 11:19 100 mls/hr ONCE ONE Administration Sodium Chloride 1,000 mls @ 1,000 mls/hr 02/23/19 10:49 02/23/19 11:04 Normal Saline - IV 02/23/19 11:48 1,000 mls/hr ASDIR STA Administration Ondansetron HCl 4 mg 02/23/19 10:49 02/23/19 11:04 Zofran Injection IVPUSH 02/23/19 10:50 4 mg ONCE ONE Administration Medical Decision Making - Medical Decision Making 02/23/19 11:56 Patient is 53F with history of metastatic disease in spinal column of unknown origin here today with vomiting. Vitals normal and stable. DDx includes, but is not limited to: gastritis, radiation gastritis, opiate withdrawal, electrolyte abn. Will evaluate with cbc, cmp, lipase, ua. Will treat with fluids, zofran and pepcid. 02/23/19 13:34 CBC normal. CMP reassuring. Patient tolerating PO, but now complaining of headache, radiating down the left side of her neck. Says this is similar to her prior headaches and neck pain. Patient states this did not start suddenly. Will treat initially with reglan and tylenol. Will reassess. 02/23/19 15:00 CBC, CMP normal. Pain improved. Case d/w oncology, agrees with dc with zofran. *DC/Admit/Observation/Transfer Diagnosis at time of Disposition: Vomiting - Discharge Dispostion Disposition: HOME Condition at time of disposition: Good Decision to Admit order: No - Referrals Referrals: Anton Bull MD [Primary Care Provider] - - Patient Instructions Printed Discharge Instructions: DI for Vomiting -- Adult Additional Instructions: Please follow up with your primary care doctor this week. Please return to the ED if you have any new, worsening or concerning symptoms, especially increasing pain, vomiting and fever. - Post Discharge Activity
[2019-02-23 12:00] LABS: URINE CRYSTALS CALCIUM OXALATE=1+ /hpf; URINE RBC 1 /hpf (0-4)
[2019-02-23] MEDS ORDERED: METOCLOPRAMIDE HCL INJECTION 10 MG/2 ML VIAL IVPB ONE (13:28)
[2019-02-23] MEDS ORDERED: ACETAMINOPHEN 1000 MG/100 ML VIAL (NON FORMULARY) IVPB ONE (13:28)
[2019-02-23] MEDS ORDERED: ACETAMINOPHEN INJECTION 100 ML IVPB ONE (13:32)
[2019-02-23] MEDS ORDERED: METOCLOPRAMIDE HCL INJECTION 10 MG/2 ML VIAL ONE (13:32)
[2019-02-23 14:44] VITALS: BP 109/63; PULSE 65; TEMP 98.5
--- NOTE | 2019-02-23 15:43 | EKG ---
Test Reason : Blood Pressure : / mmHG Vent. Rate : 066 BPM Atrial Rate : 066 BPM P-R Int : 130 ms QRS Dur : 086 ms QT Int : 356 ms P-R-T Axes : 063 041 058 degrees QTc Int : 373 ms NORMAL SINUS RHYTHM RSR' OR QR PATTERN IN V1 SUGGESTS RIGHT VENTRICULAR CONDUCTION DELAY NORMAL ECG WHEN COMPARED WITH ECG OF 30-JAN-2019 18:53, COMPARED TO EKG NO SIGNIFICANT CHANGE IS FOUND BASELINE ARTIFACT Confirmed by ALCON VERDUGO, EVELYN ([id number]) on 02/23/2019 3:43:03 PM Referred By: Confirmed By:EVELYN RONDON MD
== END 2019-02-23 15:09 | disposition home or self-care (01) ==
LOC: JER 10:13
PROC: 3E033GC Introduction of Other Therapeutic Substance into Peripheral Vein, Percutaneous Approach (ICD-10-PCS; principal; 2019-02-23)
PROC: 3E033GC Introduction of Other Therapeutic Substance into Peripheral Vein, Percutaneous Approach (ICD-10-PCS; 2019-02-23)
PROC: 3E033GC Introduction of Other Therapeutic Substance into Peripheral Vein, Percutaneous Approach (ICD-10-PCS; 2019-02-23)
DX: R11.2 Nausea with vomiting, unspecified (principal); Z85.830 Personal history of malignant neoplasm of bone; I10 Essential (primary) hypertension
CPT/HCPCS: 36415; 80053; 81003; 83690; 85025; 93005; 93010; 99284-25; J0131; J7030

== ENCOUNTER 2019-04-17 15:00 | Inpatient (IN) | payer OTHER ==
--- NOTE | 2019-04-17 15:11 | PDOC ---
Rapid Medical Evaluation Chief Complaint: CVA/TIA Time Seen by Provider: 04/17/19 15:07 Medical Evaluation: Allergies Allergy/AdvReac Type Severity Reaction Status Date / Time No Known Allergies Allergy Verified 04/17/19 15:08 Vital Signs Temp Pulse Resp BP Pulse Ox 98.3 F 118 H 16 116/86 97 04/17/19 15:05 04/17/19 15:05 04/17/19 15:05 04/17/19 15:05 04/17/19 15:05 04/17/19 15:10 I have performed a brief in-person evaluation of this patient. The patient presents with a chief complaint of: tongue , swallowing issue Pertinent physical exam findings:stable and in NAD, non-focal I have ordered the following: provider to determine The patient will proceed to the ED for further evaluation.
--- NOTE | 2019-04-17 15:14 | PDOC ---
History of Present Illness - General Chief Complaint: CVA/TIA Stated Complaint: SOB/ SPEAK PROBLEMS Time Seen by Provider: 04/17/19 15:07 History Source: Patient Exam Limitations: No Limitations - History of Present Illness Initial Comments: 04/17/19 15:13 Chelsey Fraser is a 53yF w PMHx metastatic disease of unknown origin s/p corpectomy and radiation presenting w tongue numbness. At 2:30pm, while drinking water, pt felt tongue numbness and weakness sliding to back of throat causing dyspnea lasting a few seconds. Also had intermittent L face and arm numbness and parasthesias for the last week. Currently only complaining of chest warmth. Denies fever, headache, nausea/vomiting, cough, SOB, chest/AB pain , urinary/bowel movement changes. 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 tPA Exclusion Checklist 0-3hr - Time Elapsed Date last known well: 04/17/19 Time last known well: 14:30 Elaspsed time: Day(s) and 6 Hour(s) and 25 Minutes - Thrombolytic Therapy Candidate Is the patient eligible for Thrombolytic Therapy?: No - Exclusion Criteria 0-3hr SBP greater than 185 or DBP greater than 110mmHg despite tx: No Recent IC/spinal surgery,head trauma or stroke w/in last 3mo: Yes Hx of previous IC hemorrhage, IC neoplasm, AVM or aneurysm: No Active internal bleeding: No Blding diathesis(low plt ct, inc PTT,INR>1.7 or use of NOAC): No Symptoms suggest subarachnoid hemorrhage: No CT demonstrates multilobar infarct(>1/3 cerebral hemiphere): No Arterial puncture at noncompressible site in previous 7 days: No Blood glucose concentration less than 50mg/dL (2.7mmol/L): No - Relative Exclusion Criteria 0-3h Life expectancy <1yr/severe co-morbid illness/EMPLOYMENT SPECIALIST on admit: No : No Patient/family refused: No Rapid improvement: Yes Stroke severity too mild: Yes Recent acute NV (w/in previous 3 months): No Seizure at onset with postictal residual neuro impairments: No Major surgery or serious trauma w/in previous 14 days: No Recent GI or hemorrhage (w/in previous 21 days): No - Ineligibility reason(s) Reasons No tPA given: See reason(s) noted above (neurosurgery within last 3mo, mild symptoms resolved) NIH Stroke Scale - Last Known Well Date/Time & Onset Date Last Known Well: 04/17/19 Time Last Known Well: 14:30 - Initial Evaluation Level of consciousness: Alert Ask patient the month and their age: Answers both correctly Ask patient to open & close eyes; make fist and let go: Obeys both correctly Best gaze (horizontal eye movement): Normal Visual field testing: No visual field loss Facial paresis (Show teeth/raise eyebrows/close eyes tight): Normal symmetrical movement Motor Function: Left Arm: Normal Motor Function: Right Arm: Normal (extends arm 90 (or 45) degrees for 10 seconds without drift Motor Function: Left Leg: Normal (extends leg 30 degrees for 5 seconds without drift) Motor Function: Right Leg: Normal (extends leg 30 degrees for 5 seconds without drift) Limb Ataxia: No ataxia Sensory(Use pinprick test arms,legs,trunk,face/side to side): Normal Best language (Describe picture, name items, read sentences): No Aphasia Dysarthria (read several words): Normal articulation Extinction and Inattention: No abnormality - Total Score NIH Stroke Scale Score: 0 Past History - Past Medical History Allergies/Adverse Reactions: Allergies Allergy/AdvReac Type Severity Reaction Status Date / Time No Known Allergies Allergy Verified 04/17/19 15:08 Home Medications: Ambulatory Orders Amlodipine Besylate 5 mg PO DAILY 01/24/19 Lisinopril [Prinivil] 10 mg PO DAILY 01/24/19 Venlafaxine HCl ER [Effexor Xr -] 37.5 mg PO HS 01/24/19 Ondansetron [Zofran -] 4 mg PO TID #30 tablet 02/23/19 Alprazolam 0.5 mg PO BID 04/17/19 Cancer: Yes COPD: No HTN: Yes - Immunization History Immunization Up to Date: No - Psycho Social/Smoking Cessation Hx Smoking Status: No Smoking History: Never smoked Have you smoked in the past 12 months: No Number of Cigarettes Smoked Daily: 0 Hx Alcohol Use: Yes Drug/Substance Use Hx: No Substance Use Type: None Review of Systems - Review of Systems Constitutional: No: Chills, Fever HEENTM: Yes: Difficulty Swallowing (w tongue numbness). No: Eye Pain, Nose Pain , Throat Pain, Mouth Pain Respiratory: No: Cough, Shortness of Breath Cardiac (ROS): Yes: Other (chest warmth). No: Chest Pain, Palpitations, Syncope ABD/GI: No: Abdominal Distended, Constipated, Diarrhea, Nausea, Vomiting : No: Burning, Dysuria, Discharge, Frequency, Flank Pain Musculoskeletal: No: Back Pain, Joint Pain, Muscle Pain Integumentary: No: Bruising, Dryness, Erythema Neurological: Yes: Numbness (L sided). No: Headache, Seizure, Tingling, Tremors Psychiatric: No: Anxiety, Depression, Stressors Endocrine: No: Excessive Sweating, Flushing, Intolerance to Cold, Intolerance to Heat Hematologic/Lymphatic: No: Anemia, Blood Clots, Easy Bleeding *Physical Exam - Vital Signs Last Vital Signs Temp Pulse Resp BP Pulse Ox 98.3 F 118 H 16 116/86 97 04/17/19 15:05 04/17/19 15:05 04/17/19 15:05 04/17/19 15:05 04/17/19 15:05 - Physical Exam General Appearance: Yes: Nourished, Appropriately Dressed. No: Apparent Distress HEENT: positive: EOMI, BENNY, Normal Voice, Hearing Grossly Normal. negative: Scleral Icterus (R), Scleral Icterus (L), Nasal Congestion, Rhinorrhea Neck: positive: Other (in C-collar) Respiratory/Chest: positive: Lungs Clear, Normal Breath Sounds. negative: Chest Tender, Respiratory Distress, Labored Respiration, Crackles, Rhonchi, Stridor, Wheezing Cardiovascular: positive: Regular Rhythm, S1, S2, Tachycardia. negative: Edema , Murmur Extremity: positive: Normal Capillary Refill. negative: Swelling Integumentary: positive: Normal Color Neurologic: positive: profiler hand II-XII NML intact, Fully Oriented, Alert, Normal Mood/ Affect, Normal Response, Motor Strength 5/5, Responsive, Finger to Nose (normal) . negative: Facial Droop, Numbness, Sensory Deficit, Confused, Disoriented ED Treatment Course - LABORATORY CBC & Chemistry Diagram: 04/17/19 17:00 04/17/19 15:48 Medical Decision Making - Medical Decision Making 04/17/19 15:[address] CBC CMP trop coags cholesterol UA T&S EKG 1L NS EKG shows NSR, HR 91, QTc 410, no ST changes Head CT shows no acute bleed/infarct/mass lesion, stable focal R basal ganglia calcification vs 01/25, small/moderate amount fluid in L mastoid air cells CBC, coags, CMP, BG normal, neg trop, elevated cholesterol --- Chelsey Fraser is a 53yF w PMHx metastatic disease of unknown origin s/p corpectomy presenting w 3 second tongue numbness earlier today and 1 week L sided numbness concerning for TIA. On exam, pt denies neuro symptoms, NIHSS score 0. tPA not given because neurosurgery within last 3 months, mild symptoms resolved by time of presentation. No evidence of ACS (neg trop, NSR EKG). Head CT shows no acute bleed/infarct/mass lesion. Given 1L NS. Consulted Dr Mcgarry oncwesley Brizuela oncologist - advised order brain/neck MRI w /o contrast to r/o meningeal involvement in setting of pmhx metastasis after stroke rule out Consulted Dr Vickers neurosurgery - agrees w oncology/ED plan, neck is MRI compatible Consulted Dr Be neuro - advised low concern for CVA/TIA bc few risk factors , higher concern for metastatic involvement of meninges. Order brain/neck w/wo contrast to rule out metastatic involvement Talked to Dr Angeles PCP - believes symptoms attributed to metastasis, advised to admit under hospitalist Admitted to stroke Dr Hurt for TIA, rule out metastatic involvement of meninges - pending brain/neck MRI w and w/o contrast - ordered 10mg diazepam for anxiety before MRI. Previously prescribed 10mg diazepam by Dr Vickers for anxiety before MRI, visually confirmed prescription Discharge - Discharge Information Problems reviewed: Yes Clinical Impression/Diagnosis: TIA (transient ischemic attack) Metastasis Qualifiers: Area of secondary neoplastic involvement: unspecified site Qualified Code(s): C79.9 - Secondary malignant neoplasm of unspecified site Condition: Good - Follow up/Referral - Patient Discharge Instructions - Post Discharge Activity
[2019-04-17] MEDS: SODIUM CHLORIDE 1,000 ML IV SCH (15:52)
[2019-04-17 16:08] LABS: INR 0.89 (0.83-1.09); PROTHROMBIN TIME (PATIENT) 10.5 SEC (9.7-13.0)
[2019-04-17 16:19] LABS: ALBUMIN 3.8 g/dl (3.4-5.0); BILIRUBIN,TOTAL 0.2 mg/dL (0.2-1); BLOOD UREA NITROGEN 18.1 mg/dL (7-18); CALCIUM 9.1 mg/dL (8.5-10.1); CREATININE 0.8 mg/dL (0.55-1.3); TOT PROT 7.3 g/dl (6.4-8.2)
[2019-04-17 16:20] LABS: CHOLESTEROL 214 mg/dL (50-200); HDL CHOLESTEROL 66 mg/dL (40-60); LDL CHOLESTEROL (ONLY SJRH) 125 mg/dL (5-100); TRIGLYCERIDES 151 mg/dL (0-150)
[2019-04-17 17:13] LABS: BASO % 0.6 % (0-2.0); EOS % 1.2 % (0-4.5); HEMATOCRIT 32.8 % (32.4-45.2); MCH 27.9 pg (25.7-33.7); MCHC 33.4 g/dl (32.0-36.0); MEAN CELL VOLUME 83.4 fl (80-96); MEAN PLT VOLUME 7.5 fl (7.5-11.1); MONO % 9.8 % (3.8-10.2); NEUT % 77.4 % (42.8-82.8); PLATELET COUNT 244 K/MM3 (134-434); RBC 3.94 M/mm3 (3.60-5.2); RDW 13.5 % (11.6-15.6); WHITE BLOOD COUNT 5.8 K/mm3 (4.0-10.0)
[2019-04-17 17:41] LABS: URINE APPEARANCE CLEAR; URINE BILIRUBIN NEGATIVE (NEGATIVE); URINE COLOR YELLOW; URINE GLUCOSE (UA) NEGATIVE (NEGATIVE); URINE KETONE NEGATIVE (NEGATIVE); URINE LEUK ESTERASE NEGATIVE (NEGATIVE); URINE NITRITE NEGATIVE (NEGATIVE); URINE PROTEIN NEGATIVE (NEGATIVE); URINE UROBILINOGEN 0.2 mg/dL (0.2-1.0)
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
[2019-04-17] MEDS ORDERED: diazePAM 5 MG TABLET PO ONE ×3 (18:52→20:46)
[2019-04-17] MEDS ORDERED: diazePAM 5 MG TABLET ONE ×2 (20:41→20:48)
[2019-04-17] MEDS ORDERED: HEPARIN NA (PORCINE) 5,000 UNITS/ML 1ML VIAL SQ ONE (21:38)
--- NOTE | 2019-04-17 21:50 | PN.NIHSS ---
NIH Stroke Scale - Last Known Well Date/Time & Onset Date Last Known Well: 04/16/19 - Initial Evaluation Level of consciousness: Alert Ask patient the month and their age: Answers both correctly Ask patient to open & close eyes; make fist and let go: Obeys both correctly Best gaze (horizontal eye movement): Normal Visual field testing: No visual field loss Facial paresis (Show teeth/raise eyebrows/close eyes tight): Normal symmetrical movement Motor Function: Left Arm: Normal Motor Function: Right Arm: Normal (extends arm 90 (or 45) degrees for 10 seconds without drift Motor Function: Left Leg: Normal (extends leg 30 degrees for 5 seconds without drift) Motor Function: Right Leg: Normal (extends leg 30 degrees for 5 seconds without drift) Limb Ataxia: No ataxia Sensory(Use pinprick test arms,legs,trunk,face/side to side): Mild to moderate decrease in sensation Best language (Describe picture, name items, read sentences): No Aphasia Dysarthria (read several words): Normal articulation Extinction and Inattention: No abnormality - Total Score NIH Stroke Scale Score: 1
--- NOTE | 2019-04-17 21:50 | HP ---
CHIEF COMPLAINT: perioral numbness and dysphagia PCP: Dr. Soria HISTORY OF PRESENT ILLNESS: 53 y.o. F PMH metastatic disease unknown primary CA s/p radiation x 2 weeks and vertebrectomy on 02/04/19 at [facility] (Dr. Waggoner)-- bx showing spindle cell neoplasm , lung biopsy, HTN presenting d/t perioral numbness and dysphagia. Patient endorses 1 week history of left sided UE & LE numbness and parasthesias. Earlier today she was drinking water and noticed she felt her tongue and lips go numb and had decreased ability to swallow. These symptoms were sudden in onset. She has never experienced this in the past. Currently she has regained sensation in her tongue and is able to swallow but is having residual lower lip numbness. Pt also states she is currently having L eye diplopia which is slowly getting better since earlier today. On ROS: + perioral numbness, UE & LE left sided parasthesias, generalized weakness Denies chest pain, SOB, MARKS, fevers, chills, nausea, vomiting, diarrhea, urinary changes, weight changes, myalgias. ER course was notable for: (1) Valium 15mg total PO (2) 1L NS (3) No tpa given as pt. had recent neurosurgery Recent Travel: denies PAST MEDICAL HISTORY: as per hpi PAST SURGICAL HISTORY: tubal ligation, vertebrectomy 02/04/19 Social History: not currently working Smoking: denies Alcohol: wine on occasion Drugs: denies Allergies No Known Allergies Allergy (Verified 04/17/19 15:08) HOME MEDICATIONS: Home Medications Medication Instructions Recorded Amlodipine Besylate 5 mg PO DAILY 01/24/19 Lisinopril [Prinivil] 10 mg PO DAILY 01/24/19 Venlafaxine HCl ER [Effexor Xr -] 37.5 mg PO HS 01/24/19 Ondansetron [Zofran -] 4 mg PO TID #30 tablet 02/23/19 Alprazolam 0.5 mg PO BID 04/17/19 PHYSICAL EXAMINATION Vital Signs - 24 hr 04/17/19 04/17/19 15:05 18:27 Temperature 98.3 F 98.2 F Pulse Rate 118 H Pulse Rate [ 78 Apical] Respiratory 16 18 Rate Blood Pressure 116/86 Blood Pressure 141/78 [Right Arm] O2 Sat by Pulse 97 98 Oximetry (%) GENERAL: AOx3 NAD HEENT: NCAT. [facility] cervical collar in place. + submandibular lymphadenopathy. PERRLA. EOMI. MMM. No erythema of oropharynx. Tongue midline, no fasciculations , no deformities. Uvula visualized. LUNGS: CTABL. No incr work of breathing. no wheezes/ crackles. HEART: RRR. No murmurs heard. ABDOMEN: Soft NTND. + bowel sounds. No organomegaly. MUSCULOSKELETAL: Good ROM all extremities. EXTR: 2+ pulses palpated b/l UE & LE. No edema. NEUROLOGICAL: Cranial nerves II-XII intact. Normal speech. Mild weakness w/ L handgrip. Motor 5/5. No sensory deficits of extremities. Mild decreased sensation to L forehead. No facial palsy. No dysmetria. PSYCHIATRIC: Appropriate mood and affect. SKIN: No rashes or lesions noted. Laboratory Results - last 24 hr 04/17/19 04/17/19 04/17/19 15:48 15:48 15:48 WBC Cancelled Corrected WBC (auto) Cancelled RBC Cancelled Hgb Cancelled Hct Cancelled MCV Cancelled MCH Cancelled MCHC Cancelled RDW Cancelled Plt Count Cancelled MPV Cancelled Absolute Neuts (auto) Cancelled Neutrophils % Cancelled Lymphocytes % Cancelled Monocytes % Cancelled Eosinophils % Cancelled Basophils % Cancelled Nucleated RBC % Cancelled Platelet Estimate Cancelled Platelet Comment Cancelled PT with INR INR Sodium Potassium Chloride Carbon Dioxide Anion Gap BUN Creatinine Est GFR (CKD-EPI)AfAm Est GFR (CKD-EPI)NonAf Random Glucose Calcium Total Bilirubin AST ALT Alkaline Phosphatase Creatine Kinase 36 Troponin I < 0.02 Total Protein Albumin Triglycerides 151 H Cholesterol 214 H Total LDL Cholesterol 125 H HDL Cholesterol 66 H Urine Color Urine Appearance Urine pH Ur Specific [place] Urine Protein Urine Glucose (UA) Urine Ketones Urine Blood Urine Nitrite Urine Bilirubin Urine Urobilinogen Ur Leukocyte Esterase Blood Type Antibody Screen 04/17/19 04/17/19 04/17/19 15:48 15:48 15:48 WBC Corrected WBC (auto) RBC Hgb Hct MCV MCH MCHC RDW Plt Count MPV Absolute Neuts (auto) Neutrophils % Lymphocytes % Monocytes % Eosinophils % Basophils % Nucleated RBC % Platelet Estimate Platelet Comment PT with INR 10.50 INR 0.89 Sodium 138 Potassium 4.0 Chloride 102 Carbon Dioxide 29 Anion Gap 8 BUN 18.1 H Creatinine 0.8 Est GFR (CKD-EPI)AfAm 98.24 Est GFR (CKD-EPI)NonAf 84.76 Random Glucose 162 H Calcium 9.1 Total Bilirubin 0.2 AST 10 L ALT 14 Alkaline Phosphatase 116 Creatine Kinase Troponin I Total Protein 7.3 Albumin 3.8 Triglycerides Cholesterol Total LDL Cholesterol HDL Cholesterol Urine Color Urine Appearance Urine pH Ur Specific [place]us Urine Protein Urine Glucose (UA) Urine Ketones Urine Blood Urine Nitrite Urine Bilirubin Urine Urobilinogen Ur Leukocyte Esterase Blood Type O NEGATIVE Antibody Screen Negative 04/17/19 04/17/19 17:00 17:25 WBC 5.8 Corrected WBC (auto) RBC 3.94 Hgb 11.0 Hct 32.8 MCV 83.4 MCH 27.9 MCHC 33.4 RDW 13.5 Plt Count 244 MPV 7.5 Absolute Neuts (auto) 4.5 Neutrophils % 77.4 Lymphocytes % 11.0 D Monocytes % 9.8 Eosinophils % 1.2 D Basophils % 0.6 Nucleated RBC % 0 Platelet Estimate Platelet Comment PT with INR INR Sodium Potassium Chloride Carbon Dioxide Anion Gap BUN Creatinine Est GFR (CKD-EPI)AfAm Est GFR (CKD-EPI)NonAf Random Glucose Calcium Total Bilirubin AST ALT Alkaline Phosphatase Creatine Kinase Troponin I Total Protein Albumin Triglycerides Cholesterol Total LDL Cholesterol HDL Cholesterol Urine Color Yellow Urine Appearance Clear Urine pH 7.0 Ur Specific [place] 1.007 L Urine Protein Negative Urine Glucose (UA) Negative Urine Ketones Negative Urine Blood Negative Urine Nitrite Negative Urine Bilirubin Negative Urine Urobilinogen 0.2 Ur Leukocyte Esterase Negative Blood Type Antibody Screen Imaging: * CT head: No CT evidence of acute intracranial pathology. The intracranial structures demonstrate no definite interval change in comparison to prior CT exams of 01/25/2019 and 05/11/2012. Focal right basal ganglia calcifications is again noted which may be on the basis of remote injury or infection versus possible cavernous angioma. Interval development of a small to moderate amount of fluid is seen within the left mastoid air cells. * MRI Lumbar spine 02/15/19: Metastatic lesion is observed in the left posterior aspect T12 vertebral body. The posterior cortex is noted intact. Metastatic lesion in the superior aspect of L2. Metastatic lesion, 2 hemangiomas in L3 vertebral body Metastatic lesion in L4 vertebral body. No evidence of paraspinal or epidural extension. L1-L2. Left paracentral extruded disc with 7 mm caudal extension of the disc material in relation to L1-L2 disc space. The greatest posterior extension of the disc approximately 8 mm. The disc deforms left paracentral ventral surface of the thecal sac. L4-L5. Mild loss of disc space height. Anterolateral disc bulge. Broad-based small extruded disc with mild caudal extension of the disc material in relation to the L4-L5 disc space. The disc deforming the ventral aspect of the thecal sac. No compression of L4 nerves traversing through the neural foramina. Prominent left lateral marginal osteophytes. Disc protrusion into the left neural foramen without compression of the left for nerve. L5-S1. Loss of disc space height. Disc desiccation. Midline extruded disc with mild caudal extension of the disc material limitation to L5-S1. The disc mildly deforming the ventral surface of the thecal sac. No compression of L5 nerves traversing through the neural foramina. No compression of S1 nerve * C-spine CT 02/04/19: C4-C7. Postsurgical changes are noted. Status post corpectomy of C5, C6, metallic interbody graft/ cage in place. Ventral metallic plate with screws in place. Patent airways. No evidence of prevertebral soft tissue swelling. 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 There is hemosiderin deposition seen in the surrounding tissues on the susceptibility weighted sequence, indicating petechial bleeds in this location the past. The brain is otherwise unremarkable. There are no acute or chronic ischemic lesions. 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 ASSESSMENT/PLAN: 53 y.o. F PMH metastatic disease unknown primary CA s/p radiation x 2 weeks and corpectomy on 02/04/19 at [facility] (Dr. Waggoner)-- bx showing spindle cell neoplasm, lung biopsy, HTN presenting d/t perioral numbness and dysphagia. #Metastatic disease -Sxs less likely d/t TIA; NIHSS 1; new onset neuro sxs may be sequelae of metastatic dz, no acute pathology found on ct head -Dr. Brizuela's service contacted-- Dr. Mcgarry advised brain/ neck MRI -s/p asa, atorvastatin-- holding future doses d/t metastatic disease -Dr. Be neuro Dr. Meyer neurosurg consulted-- both rec brain/ neck MRI -Brain MRI: showing right AV malformation involving R basal. Difficulty visualizing skull base, neoplasms involving hypoglossal canal & c-spine -Dr. Waggoner following, concern for R AV malformation -Giving 10mg Decadron now; 10mg again tomorrow evening -F/u echo, carotid U/S -Fall precautions, NPO -Speech & swallow consulted -PT requested -Neuro checks q4h -Holding home anti-HTN meds tonight to allow for permissive HTN-- can give in AM #HTN -Holding home anti-HTN meds tonight -In AM, c/w amlodipine, lisinopril -Monitor vitals #FEN -C/w IVF NS -trend lytes -NPO #DVT PPX -holding heparin d/t metastasis #Dispo monitor on tele Visit type - Emergency Visit Emergency Visit: Yes ED Registration Date: 04/17/19 Care time: The patient presented to the Emergency Department on the above date and was hospitalized for further evaluation of their emergent condition. - New Patient This patient is new to me today: Yes Date on this admission: 04/18/19 - Critical Care Critical Care patient: No ATTENDING PHYSICIAN STATEMENT I saw and evaluated the patient. I reviewed the resident's note and discussed the case with the resident. I agree with the resident's findings and plan as documented. SUBJECTIVE: OBJECTIVE: ASSESSMENT AND PLAN:
--- NOTE | 2019-04-17 21:53 | PN ---
Teaching Attending Note Name of Resident: Margie Kaplan ATTENDING PHYSICIAN STATEMENT I saw and evaluated the patient. I reviewed the resident's note and discussed the case with the resident. I agree with the resident's findings and plan as documented. 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 Lung biopsy revealed inflammation/necrotic changes. Reports course of radiation therapy. Follows at [facility]. Now presented c/o tongue numbness which began at 2:30pm, while drinking water. She felt tongue numbness and weakness sliding to back of throat causing dyspnea lasting a few seconds. At the time she also had perioral numbness, which has been persistent. She also reports L face and arm numbness and parasthesias for the last week. OBJECTIVE: Last Vital Signs Temp Pulse Resp BP Pulse Ox 98.2 F 78 18 141/78 98 04/17/19 18:27 04/17/19 18:27 04/17/19 18:27 04/17/19 18:27 04/17/19 18:27 general -nad, aaox3 heent -at neck supple, horizontal scar. cv-s1+s2+rrr chest clear abd- soft, nt ext -left upper extremity motor 4/5, sensation intact, babinski sign negative b/ l, CN 3-12 grossly intact, patellar n b/l without hyperreflexia, Abnormal Lab Results 04/17/19 04/17/19 04/17/19 15:48 15:48 17:25 BUN 18.1 H Random Glucose 162 H AST 10 L Triglycerides 151 H Cholesterol 214 H Total LDL Cholesterol 125 H HDL Cholesterol 66 H Ur Specific [place] 1.007 L imaging reviewed and brain/cervical MRI discussed with radiologist electronic wirer - neoplastic involvement of c1, c2, c3 vertebral bodies and left occipital condyl, with abnormal tissue entering left hypoglossal canal likely enhancing 12th cranial nerve. Vertebral body fusions - c4-c5, c6 levels. right basal ganglia avm. ASSESSMENT AND PLAN: #Neurological symptoms of tongue parasthesias and throat weakness likely caused by compression of tumor on hypoglossal nerve as described above.Less likely TIA/CVA in this setting. +dysphagia as was unable to swallow water previously. + left upper extremity weakness -appears to be new. RIght basal ganglia avm. -admit to telemetry -npo -aspiration precautions -dexamethasone 10mg IV stat to decrease tumor compression -speech and swallow eval -neuro checks q4hrs - CN -brain mri appreciated -neurology, MERRY, oncology evaluations -MERRY was attempted to be reached stat -carotid duplex, echo performed as pt initially suspected to have tia/cva #Recent malignancy diagnosis - no diagnosis on file here -would obtain medical records records from [facility] and oncologist -avoid AC as tumor might be extending up to WEIGHT CALLER, elevated bleeding risk -scds for dvt ppx
[2019-04-17] MEDS ORDERED: ATORVASTATIN CA 80 MG TABLET (FP) PO ONE (22:51)
[2019-04-17] MEDS ORDERED: ATORVASTATIN CA 40 MG TABLET (FP) PO STA (22:52)
[2019-04-17] MEDS ORDERED: ASPIRIN COATED 81 MG TABLET.EC ONE (23:01)
[2019-04-17] MEDS ORDERED: ATORVASTATIN CA 80 MG TABLET (FP) ONE (23:02)
[2019-04-17] MEDS ORDERED: HEPARIN NA (PORCINE) 5,000 UNITS/ML 1ML VIAL ONE (23:02)
[2019-04-17] MEDS: ATORVASTATIN CA 80 MG TABLET (FP) PO SCH ×2 (23:03→23:05)
[2019-04-17] MEDS: ASPIRIN COATED 81 MG TABLET.EC PO SCH (23:04)
[2019-04-18 00:06] VITALS: BMI 24.3
[2019-04-18] MEDS ORDERED: MELATONIN 5 MG TABLETS PO ONE (00:17)
[2019-04-18] MEDS ORDERED: ACETAMINOPHEN 1000 MG/100 ML VIAL (NON FORMULARY) IVPB ONE (00:58)
[2019-04-18] MEDS ORDERED: DEXAMETHASONE SOD PHOSPHATE 10 MG/1 ML VIAL IVPUSH ONE ×2 (01:01→20:00)
[2019-04-18] MEDS ORDERED: ACETAMINOPHEN 1000 MG/100 ML VIAL (NON FORMULARY) IVPB PRN (05:36)
[2019-04-18 07:05] LABS: BASO % 0.2 % (0-2.0); EOS % 0.1 % (0-4.5); HEMATOCRIT 34.2 % (32.4-45.2); HEMOGLOBIN 11.8 GM/dL (10.7-15.3); LYMPH % 6.8 % (8-40); MCH 28.4 pg (25.7-33.7); MCHC 34.4 g/dl (32.0-36.0); MEAN CELL VOLUME 82.4 fl (80-96); MEAN PLT VOLUME 7.8 fl (7.5-11.1); MONO % 1.3 % (3.8-10.2); NEUT % 91.6 % (42.8-82.8); PLATELET COUNT 226 K/MM3 (134-434); RBC 4.15 M/mm3 (3.60-5.2); RDW 13.2 % (11.6-15.6)
[2019-04-18 07:36] LABS: ALBUMIN 3.7 g/dl (3.4-5.0); BILIRUBIN,TOTAL 0.4 mg/dL (0.2-1); BLOOD UREA NITROGEN 12.8 mg/dL (7-18); CALCIUM 9.7 mg/dL (8.5-10.1); CREATININE 0.8 mg/dL (0.55-1.3); PHOSPHOROUS 2.8 mg/dL (2.5-4.9); POTASSIUM 4.5 mmol/L (3.5-5.1); TOT PROT 7.2 g/dl (6.4-8.2)
[2019-04-18] MEDS: ASPIRIN COATED 81 MG TABLET.EC PO SCH (09:42)
[2019-04-18 11:42] LABS: ANISOCYTOSIS 1+; MACROCYTOSIS 0; OVALOCYTE 1+; PLATELET ESTIMATE NORMAL
--- NOTE | 2019-04-18 11:42 | CONSULT ---
Admitting History and Physical - Admission History of Present Illness: Per EMR- 53 y.o. F PMH metastatic disease unknown primary CA s/p radiation x 2 weeks and vertebrectomy on 02/04/[address] [facility] (Dr. Waggoner)-- bx showing spindle cell neoplasm , lung biopsy, HTN presenting d/t perioral numbness and dysphagia. Patient endorses 1 week history of left sided UE & LE numbness and parasthesias. Earlier today she was drinking water and noticed she felt her tongue and lips go numb and had decreased ability to swallow. These symptoms were sudden in onset. She has never experienced this in the past. Currently she has regained sensation in her tongue and is able to swallow but is having residual lower lip numbness. Pt also states she is currently having L eye diplopia which is slowly getting better since earlier today. - neoplastic involvement of c1, c2, c3 vertebral bodies and left occipital condyl, with abnormal tissue entering left hypoglossal canal likely enhancing 12th cranial nerve. Vertebral body fusions - c4-c5, c6 levels. right basal ganglia avm. - Past Medical History SURGICAL CLINICAL REVIEWER: Yes: Migraine, Other (depression) Cardiovascular: Yes: HTN ...LMP: 01/14/13 Musculoskeletal: Yes: Other (knee pains) - Past Surgical History Past Surgical History: Yes: Tubal Ligation - Smoking History Smoking history: Never smoked Have you smoked in the past 12 months: No Aproximately how many cigarettes per day: 0 - Alcohol/Substance Use Hx Alcohol Use: Yes History of Substance Use: reports: None - Social History ADL: Independent Occupation: does house-keeping History of Recent Travel: No History - Admission Reason For Visit: TIA, METASTATIC MALIGNANT NEOPLASM - Hearing Hearing: Normal
--- NOTE | 2019-04-18 12:04 | CONSULT ---
Consult - text type - Consultation Consultation Note: NEUROLOGY CONSULTATION is greatly appreciated: Events reviewed and discussed with YUNG Luther and Dr. Arnold.. Patient examined by me. Pt is well-known to me for chronic migraine and RLS. MARKS's were well-controlled on topiramate 100 mg BID and nortriptyline 50 qhs Last seen in hospital consultation 01/25/19. Arielle Engel discussed with daughter and sister at bedside. This 53 yo RH woman with h/o HTN, depression, nausea on lisinopril, amlodipine, zofran, alprazolam 0.5 mg BID, and venlafaxine (75 mg). Followed by [facility]. S/P C5 corpectomy and tumor debulking by Dr. Waggoner, with path suggesting unusual sarcomatous carcinoma acording to Dr. Arnold. Now followed at [facility] (Dr. Ambrose) for heme-onc care and completing 2 weeks of RT to the neck here. Reportedly is pending lung biopsy at [facility]. Admitted after 1 week of intermittent "numbness" "tingling" " feeling" in L arm radiating to all the fingers as well as left leg into all the toes. Yesterday, had two brief (<20 secs) episodes of sensation of "tongue rolling back" and inability to talk and "gagging" associated with SOB and "shaking," No LOC. All of these symptoms have since resolved. S/P Decadron 10 mg IVP in ED. Today C/O "pressure" on top of head and left hemicranium on "constant" basis since surgery, requiring 2 Tylenol every 5 hours and Oxycodone nightly for sleep. Head CT (reviewed): Normal brain MRI of brain C+/C- (reviewed): Normal brain. Bony mets at base of skull. MRI of C spine C+/C- (reviewed): S/P C5 corpectomy and fusion. Diffuse bony mets with small epidural extension at odontoid Carotid duplex: Normal study. WBC 6.0; MCV= 82; TSH 1.51 EXAM: BP 127/84. Awake, alert, Ox X 3. Restricted ROM of neck. Hard collar off. Well-healed ACD scar. NEURO: MS/speech: Normal. Withdrawn, depressed. CN: II-XII: EOM's full without nystagmus. No facial. Tongue midline and normal strength. Gag ok- swallowing small sips H20 Motor: No drift. Normal strength and reflexes. Toes downgoing Coord: No FTN dystaxia Sensory: Normal to vibration and pinprick. Gait: Normal IMP: Normal neurological exam r/o cervical radiculopathy left arm (although RLS would also explain her symptoms). Migraine headaches/ now converted to Chronic daily headache syndrome due to overuse of tylenol. Depression/Anxiety- probable anxiety/panic attacks SUGGEST: Oncology and radiation onc f/u. Rapidly taper and D/C decadron No tylenol or short acting analgesics. Resume nortriptyline (25 qhs) and venlafaxine (37.5 qam) for both migraine prophylaxis and depression/anxiety. Continue alpraazolam 0.5 mg BID Neuro, psyche and oncology f/u as out patient. Thank you very much, Hardeep Be MD
--- NOTE | 2019-04-18 12:49 | CONSULT ---
Consult Consult Specialty:: Hematology and Oncology Referred by:: Dr. Kaplan Reason for Consultation:: New mets to the spine - History of Present Illness Chief Complaint: Numbness, weakness on left side and tongue History of Present Illness: The patient is a 53 yo F w/ PMH of metastatic disease with unknown primary (s/p radiation x 2 weeks and vertebrectomy on 02/04/19 at [facility] w/ Dr. Waggoner), HTN who comes into the ER c/o left sided numbness as well as perioral numbness and dysphagia. Patient had a biopsy in the past which showed a spindle cell neoplasm. Her symptoms have been gradually improving over the course of her admission. An MRI of the C spine and the head showed new metastatic disease. Hematology was consulted for assistance with further workup and management. On interview, the patient has no complaints. She states that her symptoms have improved since admission, but are still present. She states that she has been following with a credit assessment analyst [place] [facility] [place]. She does not recall being told anything regarding any metastasis to the spine. When her diagnosis and future workup was discussed, the patient states that she would rather follow up at [facility] where the majority of her cancer care has been. - History Source History Provided By: Patient Limitations to Obtaining History: No Limitations - Past Medical History NODULIZER: Yes: Migraine, Other (depression) Cardio/Vascular: Yes: HTN ...LMP: 01/14/13 Musculoskeletal: Yes: Other (knee pains) - Past Surgical History Past Surgical History: Yes: Tubal Ligation - Alcohol/Substance Use Hx Alcohol Use: Yes History of Substance Use: reports: None - Smoking History Smoking history: Never smoked Have you smoked in the past 12 months: No Aproximately how many cigarettes per day: 0 - Social History ADL: Independent Occupation: does house-keeping History of Recent Travel: No Home Medications - Allergies Allergies/Adverse Reactions: Allergies Allergy/AdvReac Type Severity Reaction Status Date / Time No Known Allergies Allergy Verified 04/17/19 15:08 - Home Medications Home Medications: Ambulatory Orders Amlodipine Besylate 5 mg PO DAILY 01/24/19 Lisinopril [Prinivil] 10 mg PO DAILY 01/24/19 Venlafaxine HCl ER [Effexor Xr -] 37.5 mg PO HS 01/24/19 Ondansetron [Zofran -] 4 mg PO TID #30 tablet 02/23/19 Alprazolam 0.5 mg PO BID 04/17/19 Physical Exam Vital Signs: Vital Signs Temperature 98.6 F 04/18/19 10:00 Pulse Rate 93 H 04/18/19 10:00 Respiratory Rate 18 04/18/19 10:00 Blood Pressure 127/84 04/18/19 10:00 O2 Sat by Pulse Oximetry (%) 98 04/18/19 09:00 Constitutional: Yes: Well Nourished, No Distress, Calm HENT: Yes: Atraumatic, Normocephalic Cardiovascular: Yes: Regular Rate and Rhythm, S1, S2. No: Gallop, Murmur, Rub Respiratory: Yes: Regular, CTA Bilaterally Gastrointestinal: Yes: Normal Bowel Sounds, Soft Edema: No Neurological: Yes: Alert, Oriented, Cran Nerves II-XII Intact Psychiatric: Yes: Alert, Oriented Labs: CBC, BMP 04/18/19 05:50 04/18/19 05:50 Assessment/Plan The patient is a 53 yo F w/ PMH of metastatic disease with unknown primary (s/p radiation x 2 weeks and vertebrectomy on 02/04/19 at [facility] w/ Dr. Waggoner), HTN who comes into the ER c/o left sided numbness as well as perioral numbness and dysphagia. MRI cspine showed new mets to the spine. #New mets to the cervical spine -may play a role in the patient's presentation -patient prefers to follow at [facility] for further workup of this finding -nurse to forward our records to her oncologist. -patient stable to follow up as outpatient from hematologic/Oncologic perspective.
--- NOTE | 2019-04-18 13:18 | EKG ---
Test Reason : Blood Pressure : / mmHG Vent. Rate : 091 BPM Atrial Rate : 091 BPM P-R Int : 148 ms QRS Dur : 084 ms QT Int : 334 ms P-R-T Axes : 068 030 060 degrees QTc Int : 410 ms NORMAL SINUS RHYTHM NORMAL ECG WHEN COMPARED WITH ECG OF 23-FEB-2019 10:55, NO SIGNIFICANT CHANGE WAS FOUND Confirmed by FAISAL GRAHAM MD ([id number]) on 04/18/2019 1:18:04 PM Referred By: Confirmed By:FAISAL GRAHAM MD
--- NOTE | 2019-04-18 13:20 | CONSULT ---
Consult - text type - Consultation Consultation Note: NEUROSURGERY CONSULTATION Chelsey Fraser is a 53 year old Urdu female who presented with neck and arm pain and was found to have multifocal disease suggestive of metastatic cancer with possible lung primary. Biopsy of pulmonary nodule was non diagnostic. Tissue was obained from C5 via corpectomy on February 04, 2019. 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 She presented to the [facility] ER with dysarthria and difficulty using her tongue. Upon further questioning, she reported Left arm and leg paresthesias and numbness for the prior week. MRI Cervical did not show new/progression of her cancer and the hardware remained in satisfactory position with no new neurological compression. Brain MRI does not reveal clear intraparynchymal metastasis and he Right basal ganglion venous malformation remains unchanged. There is suggestion of epidural tumor at the basion which may be compromising her hypoglossal nerves. The majority of her symptoms abated with steroids, however, her discomfort from the Cervical collar persists. At this point, there does not appear to be indication for acute Neurosurgical intervention. Will discuss possibility of carcinomatous meningitis and potential role of Lumbar Puncture with Dr. Be. Will follow.
--- NOTE | 2019-04-18 14:20 | ECHO ---
Name: CARLA SPENCE Exam:Adult Echocardiogram Study Date: 04/18/2019 09:01 AM Age: 53 yrs Reason For Study: TIA Height: 67 in Weight: 153 lb BSA: 1.8 m2 MMode/2D Measurements & Calculations IVSd: 0.99 cm Ao root diam: 2.9 cm LVIDd: 4.9 cm LVIDs: 3.6 cm LVPWd: 0.97 cm EDV(Teich): 111.8 ml LVOT diam: 2.1 cm ESV(Teich): 52.8 ml Doppler Measurements & Calculations MV E max augustine: 74.0 cm/sec Ao V2 max: 148.3 cm/sec MV A max augustine: 86.9 cm/sec Ao max P.8 mmHg MV E/A: 0.85 MV dec time: 0.19 sec MASON(V,D): 2.1 cm2 LV V1 max P.1 mmHg TR max augustine: 211.7 cm/sec LV V1 max: 87.9 cm/sec TR max P.2 mmHg Med Peak E' Augustine: 11.5 cm/sec Med E/e': 6.5 Lat Peak E' Augustine: 9.4 cm/sec Lat E/e': 7.9 Procedure A complete two-dimensional transthoracic echocardiogram was performed (2D, M-mode, Doppler and color flow Doppler). Left Ventricle The left ventricular size, thickness and function are normal. The left ventricular ejection fraction is normal. Ejection Fraction = 60-65%. The left ventricular wall motion is normal. Right Ventricle The right ventricle is normal in size and function. Atria Normal left and right atrial size and function. Mitral Valve There is no mitral regurgitation noted. Tricuspid Valve There is trace tricuspid regurgitation. There was insufficient TR detected to calculate RV systolic p ressure. Aortic Valve No hemodynamically significant valvular aortic stenosis. No aortic regurgitation is present. Pulmonic Valve There is no pulmonic valvular regurgitation. Great Vessels The aortic root is normal size. Pericardium/Pleura There is no pericardial effusion. Interpretation Summary The left ventricular size, thickness and function are normal The right ventricle is normal in size and function. There is trace tricuspid regurgitation. MD Agustin Kraus 04/18/2019 02:20 PM
[2019-04-18] MEDS: SODIUM CHLORIDE 1,000 ML IV SCH (17:49)
[2019-04-18] MEDS ORDERED: PT OWN MED DRAWER 7, Y5N ONE (20:22)
[2019-04-18] MEDS ORDERED: NORTRIPTYLINE HCL 25 MG CAPSULE PO SCH (22:00)
[2019-04-18] MEDS: ALPRAZolam 0.25 MG TABLET PO SCH (22:04)
--- NOTE | 2019-04-19 08:05 | PN ---
Progress Note (short form) - Note Progress Note: Patient stable. No current pain or complaint. Discussed weaning collar and she feels better without it on. Patient does not require inpatient hospitalization at this time for her Neurosurgical concerns. No objections to discharge from Neurosurgery standpoint.
[2019-04-19] MEDS ORDERED: PT OWN MED DRAWER 7, Y5N ONE (09:25)
[2019-04-19] MEDS: ALPRAZolam 0.25 MG TABLET PO SCH (09:55)
[2019-04-19] MEDS ORDERED: VENLAFAXINE HCL 37.5 MG E.R. CAPSULE (FP) PO SCH (10:00)
[2019-04-19] MEDS ORDERED: LISINOPRIL 10 MG TABLET (FP) PO SCH (10:00)
[2019-04-19] MEDS: ASPIRIN COATED 81 MG TABLET.EC PO SCH (10:45)
[2019-04-19 14:04] VITALS: BP 126/70; PULSE 86; TEMP 98.4
--- NOTE | 2019-04-19 16:29 | DS ---
Physical Examination Vital Signs: Vital Signs Temperature 98.4 F 04/19/19 14:03 Pulse Rate 86 04/19/19 14:03 Respiratory Rate 20 04/19/19 14:03 Blood Pressure 126/70 04/19/19 14:03 O2 Sat by Pulse Oximetry (%) 100 04/19/19 09:00 Constitutional: Yes: Well Nourished, No Distress, Calm Eyes: Yes: Conjunctiva Clear Cardiovascular: Yes: Regular Rate and Rhythm Respiratory: Yes: CTA Bilaterally Gastrointestinal: Yes: Normal Bowel Sounds, Soft Musculoskeletal: Yes: WNL Extremities: Yes: WNL Edema: No Neurological: Yes: WNL ...Motor Strength: WNL Psychiatric: Yes: WNL Labs: CBC, BMP 04/18/19 05:50 04/18/19 05:50 Discharge Summary Problems reviewed: Yes Reason For Visit: TIA, METASTATIC MALIGNANT NEOPLASM Current Active Problems Metastatic lesions to C-spine from k primary Transient neurologic deficit Htn depression hx migraines Hospital Course: 53 YO F who has 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 On the day [employer] she experienced abnormal sensation on her tongue and difficulty articulating words of breif duration which happened twice and then completely resolved. She was sent to the ER; MRI of head and C- spine taken revealed what suggests furtrher progression of the neoplastic process into the chu vert soft tissue and skull base (see report). Oncology and neuro ans well as NS were called. She was given short course of high dose Decadron. No further episodes were observed. It was concluded by all involved that no further Tx could be given here considering that she has now been [place] [facility] [place]and has f/u appt in 1 week) with the hope of receiving Tx and care at that institution. She was advised to return to ER if any further evnts recur. Plan of Treatment: to be deferred to [facility] Goals: to be determined Condition: Guarded - Instructions Diet, Activity, Other Instructions: resume as usual as before Referrals: Anton Bull MD [Primary Care Provider] - - Home Medications Comprehensive Discharge Medication List: Ambulatory Orders Amlodipine Besylate 5 mg PO DAILY 01/24/19 Lisinopril [Prinivil] 10 mg PO DAILY 01/24/19 Venlafaxine HCl ER [Effexor Xr -] 37.5 mg PO HS 01/24/19 Ondansetron [Zofran -] 4 mg PO TID #30 tablet 02/23/19 Alprazolam 0.5 mg PO BID 04/17/19
[2019-04-19] MEDS ORDERED: amLODIPine BESYLATE 5 MG TABLET (FP) PO SCH (22:00)
== END 2019-04-19 19:30 | disposition home or self-care (01) | DRG 544 ==
LOC: JER 15:00 → JERBED 16:13 → J4S 23:28
PROVIDERS: ADMIT Internal Medicine; ATTEND Internal Medicine Hematology & Oncology
DX: C79.51 Secondary malignant neoplasm of bone (principal); C80.1 Malignant (primary) neoplasm, unspecified; I10 Essential (primary) hypertension; R13.10 Dysphagia, unspecified; G43.909 Migraine, unspecified, not intractable, without status migrainosus; F32.9 Major depressive disorder, single episode, unspecified; F41.9 Anxiety disorder, unspecified; R29.818 Other symptoms and signs involving the nervous system
CPT/HCPCS: 36415; 70450-TC; 70553-TC; 72156-TC; 80053; 80061; 81003; 82550; 82607; 82728; 83540; 83550; 83721; 83735; 84100; 84484; 85025; 85610; 86850; 86900; 86901; 93005; 93010; 93306-TC; 93880-TC; 97116-GP; 97162-GP; 99284-25; A9579; J0131; J1100; J1644; J7030